=== PATIENT | male | born 1950 | race Caucasian/White ===

== ENCOUNTER 2018-10-20 20:29 | Inpatient (IN) | payer MEDICARE, BC ==
[2018-10-20] MEDS ORDERED: Thiamine 100 MG TAB ONE (21:14)
[2018-10-20 22:02] LABS: Hemoglobin 5.3 g/dL (14.0-18.0); Mean Corpuscular HGB CONC 34.5 g/dL (32.0-36.0); Mean Corpuscular Hemoglobin 29.5 pg (27.0-31.0); Mean Corpuscular Volume 85.5 fL (78.0-98.0); Mean Platelet Volume 7.6 fL (7.4-10.4); Platelet Count 610 thou/uL (130-400); RBC Distribution Width 26.6 % (11.5-14.5); Red Blood Cell (RBC) Count 1.78 mill/uL (4.70-6.10); White Blood Cell (WBC) Count 15.6 thou/uL (4.8-10.8)
[2018-10-20 22:08] LABS: Acetaminophen Less than 6.0 mcg/mL (10.0-30.0); Alcohol 19 mg/dL (Less than 10); Salicylate Less than 8.0 mg/dL (15.0-30.0)
[2018-10-20 22:09] LABS: ALT (SGPT) 8 U/L (8-55); AST (SGOT) 24 U/L (5-34); Albumin 3.6 g/dL (3.4-4.8); Alkaline Phosphatase 188 U/L (40-150); Anion Gap 19 mmol/L (10-20); BUN (Urea Nitrogen) 9 mg/dL (8.4-25.7); Bilirubin, Total 0.8 mg/dL (0.2-1.2); Calc. Creatinine Clearance 0 mL/min (70-130); Calcium 7.3 mg/dL (7.8-10.44); Carbon Dioxide 24 mmol/L (23-31); Chloride 91 mmol/L (98-107); Estimated GFR-MDRD Greater than 90; Globulin 3.1 g/dL (2.4-3.5); Glucose 105 mg/dL (80-115); Protein, Total 6.7 g/dL (5.8-8.1); Sodium 131 mmol/L (136-145)
[2018-10-20 22:16] LABS: #Eosinphils 0.1 thou/uL (0.0-0.7); #Lymphocytes 2.2 thou/uL (1.20-3.40); #Monocytes 0.9 thou/uL (0.11-0.59); #Neutrophils 12.4 thou/uL (1.40-6.50); %Eosinophils 0.4 % (0.0-10.0); %Lymphocytes 14.2 % (21.0-51.0); %Neutrophils 79.4 % (42.0-75.0); Anisocytosis MODERATE=16-30 cells (100X) (0-5/hpf); Hypochromia SLIGHT = 6-15 cells (100X) (0-5/hpf); MDiff Complete? YES; Microcytosis SLIGHT = 6-15 cells (100X) (0-5/hpf); Platelet Morphology Comment Appears Increased; Tear Drops SLIGHT = 2-5 cells (100X) (0-1/hpf)
[2018-10-20 22:21] LABS: Potassium 2.9 mmol/L (3.5-5.1)
[2018-10-20] MEDS ORDERED: Ondansetron ODT 4 MG TAB ONE (22:49)
[2018-10-20 22:55] LABS: Amphetamine Not Detected (NotDetected); Barbiturates Screen Not Detected (NotDetected); Benzodiazepine Screen Not Detected (NotDetected); Cocaine Metabolite Screen Not Detected (NotDetected); Medtox Control Line Valid? VALID (VALID); Medtox Reader # READER 4; Methadone Not Detected (NotDetected); Methamphetamine Not Detected (NotDetected); Opiate Screen Not Detected (NotDetected); Oxycodone Screen Not Detected (NotDetected); Phencyclidine (PCP) Not Detected (NotDetected); THC/Cannabinoid Screen Not Detected (NotDetected); Tricyclic Screen Not Detected (NotDetected)
[2018-10-20] MEDS ORDERED: Pot Chloride/Pot Bicarb/Cit Ac 25 mEq Effervescent Tablet ONE (22:55)
[2018-10-21] MEDS ORDERED: Lorazepam 2 MG/ML VIAL SLOW IVP SCH (01:47)
[2018-10-21 02:15] LABS: Iron 197 ug/dL (65-175); Iron Binding Capacity, Total 210 mcg/dL (261-462)
[2018-10-21] MEDS: Multivitamins, Adult 10 ML, Folic Acid 1 MG, Thiamine HCl 100 MG in Dextrose 5 %-0.45 %... IV SCH ×2 (02:28→16:06)
[2018-10-21] MEDS: Octreotide Acetate 1,250 MCG in Sodium Chloride 0.9% 250 ML 250 ML IVPB SCH (02:32)
--- NOTE | 2018-10-21 03:42 | HP ---
PRIMARY CARE PHYSICIAN: Dr. Salvador Germain. CHIEF COMPLAINT: "I am feeling short of breath, lightheaded and weak and I want to come off alcohol." HISTORY OF PRESENT ILLNESS: Mr. Carmona is a pleasant 68-year-old gentleman who has a history of alcohol abuse. He says he has "a long history of bad alcohol disease." He says that he tends to abstain from drinking and then goes back to heavy drinking off and on. He cannot really quantitate it, but says that he typically will drink vodka with 7 Up. He says a few weeks ago he started drinking heavily and then noticed that he started getting short of breath primarily with moving around his house. He started feeling lightheaded and weak and he wanted to stop drinking and notes that he has had trouble with withdrawal symptoms in the past. For this reason, he came to the ER for evaluation. In the ER, routine lab work showed that he was severely anemic with a hemoglobin of 5.3 and also hypokalemic and he is being admitted for that, as well as to be detoxed. He denies having any abdominal pain. He denies using any anti-inflammatory medicines such as Advil, Motrin or aspirin. He denies having any hematemesis. No dark stools, no melena that he is aware of and he denies any abdominal pain. He does admit to having some episodes of vomiting off and on and feeling nauseated and this happens about every 2 days. He does not know of having any problems with anemia in the past. He also denies any chest pain. REVIEW OF SYSTEMS: CONSTITUTIONAL: There has been no fevers or chills. No night sweats. No weight loss. HEENT: He denies any headache, but has had some dizziness and feeling lightheaded. No sore throat. No rhinorrhea. No neck pain. No adenopathy. PULMONARY: No hemoptysis. No cough. No wheezing. CARDIOVASCULAR: He denies any chest pain. He does admit to some dyspnea on exertion, but no PND, no orthopnea. He has noted some ankle swelling. GASTROINTESTINAL: As in the history of present illness. GENITOURINARY: No urinary frequency or hematuria. No hesitancy. MUSCULOSKELETAL: No muscle pains, weakness or joint pain. NEUROLOGIC: No focal weakness or numbness. No seizures. PSYCHIATRIC: No symptoms of anxiety or depression. SKIN AND INTEGUMENT: No skin changes. No rash. ENDOCRINE: No heat or cold intolerance. PAST MEDICAL HISTORY: Significant for he says low blood pressure. He says his blood pressure usually runs about 110 systolic. Long history of alcohol abuse. He says he has been to multiple programs and says he could teach the class himself. He admits to binge drinking off and on. PAST SURGICAL HISTORY: He has had cataract surgeries, lipoma removed, as well as kidney stone removal with lithotripsy. ALLERGIES: NO KNOWN DRUG ALLERGIES. SOCIAL HISTORY: He is , has 1 child. He would like to be a full code. He does not have a surrogate decision maker. He does not quantitate his alcohol use other than saying he drinks vodka and he has been a drinker for 40 years. FAMILY HISTORY: Significant for diabetes mellitus in his sister. CURRENT MEDICATIONS: Include: 1. Gabapentin 300 mg two 3 times a day, but he says he decreased it to one 3 times a day due to feeling dizzy and lightheaded. 2. Also the buspirone. He decreased his dose, but he is supposed to be taking 5 mg twice a day. PHYSICAL EXAMINATION: GENERAL: He is alert and oriented. He appears to be in no acute distress. He is well developed and well nourished. VITAL SIGNS: Blood pressure systolic is 88/52, heart rate is 106, respiratory rate of 18 and temperature is 98.8. HEENT: Pupils are equal, round and reactive to light. Extraocular muscles are intact. His sclerae are anicteric. Throat, there is no erythema, no exudates. NECK: No adenopathy, no bruits. LUNGS: Clear to auscultation. There is no wheezing, no rales, no rhonchi. CARDIOVASCULAR: He has normal S1 and S2. There is no S3 or S4. No murmurs or clicks, no rubs. ABDOMEN: Soft. It is nontender and nondistended. Positive for bowel sounds. There is no rebound, no guarding. No organomegaly. EXTREMITIES: No clubbing or cyanosis. He does have some ankle edema. No calf tenderness. He has palpable dorsalis pedis pulses bilaterally. NEUROLOGIC: Cranial nerves 2 through 12 are grossly intact. His muscle strength is 5/5 in both his upper and lower extremities. SKIN AND INTEGUMENT: No skin changes, no rash. LABORATORY DATA: White blood cell count 15.6, hemoglobin 5.3, hematocrit is 15.2 and platelet count is 610. Sodium 131, potassium 2.9, chloride is 91, BUN of 9, creatinine 0.75, glucose is 105, plasma alcohol level was 19. ASSESSMENT: This is a 68-year-old gentleman who presents to the ER feeling weak and dizzy. He was found to be severely anemic. He has a history of chronic alcohol abuse. He was also found to be hypokalemic as well. The anemia, the etiology is unclear. The concern, however, would be for ulcer disease or even varices given his heavy alcohol use. He will be admitted to telemetry. His blood pressure seems to be responding to fluids and he is currently receiving a transfusion. 1. For alcohol abuse, he will be placed on a banana bag, IV Ativan p.r.n. for potential withdrawal symptoms. He has been counseled briefly on alcohol abuse and will likely need some information on local programs at the time of discharge. 2. Severe anemia. We will check iron studies, as well as B12 and folic acid. Check his stool for occult blood, and given the high possibility for a gastrointestinal blood loss, we will consult Gastroenterology. 3. Hypotension. I suspect this is likely due to volume depletion. We will continue IV hydration as well as transfusion. 4. Hypokalemia. This is likely due to nutritional deficits. We will replace and also check a magnesium level, and if low, this will be replaced as well. Job ID: [id number]
[2018-10-21] MEDS ORDERED: Diazepam 5 MG TAB PO PRN (04:33)
[2018-10-21] MEDS ORDERED: Diazepam 5 MG TAB PO SCH (04:45)
[2018-10-21 06:05] LABS: Hemoglobin 7.2 g/dL (14.0-18.0); Mean Corpuscular HGB CONC 34.8 g/dL (32.0-36.0); Mean Corpuscular Hemoglobin 29.3 pg (27.0-31.0); Mean Corpuscular Volume 84.2 fL (78.0-98.0); Mean Platelet Volume 7.8 fL (7.4-10.4); Platelet Count 524 thou/uL (130-400); RBC Distribution Width 23.1 % (11.5-14.5); Red Blood Cell (RBC) Count 2.47 mill/uL (4.70-6.10); White Blood Cell (WBC) Count 15.3 thou/uL (4.8-10.8)
[2018-10-21 06:07] LABS: Anion Gap 17 mmol/L (10-20); BUN (Urea Nitrogen) 11 mg/dL (8.4-25.7); Calc. Creatinine Clearance 106 mL/min (70-130); Calcium 6.9 mg/dL (7.8-10.44); Carbon Dioxide 28 mmol/L (23-31); Chloride 92 mmol/L (98-107); Estimated GFR-MDRD Greater than 90; Glucose 136 mg/dL (80-115); Potassium 3.6 mmol/L (3.5-5.1); Sodium 133 mmol/L (136-145)
[2018-10-21 06:26] LABS: #Eosinphils 0.1 thou/uL (0.0-0.7); #Lymphocytes 2.1 thou/uL (1.20-3.40); #Monocytes 1.2 thou/uL (0.11-0.59); #Neutrophils 11.9 thou/uL (1.40-6.50); %Basophils 0.1 % (0.0-1.0); %Eosinophils 0.7 % (0.0-10.0); %Lymphocytes 13.7 % (21.0-51.0); %Monocytes 7.5 % (0.0-10.0); Anisocytosis SLIGHT = 6-15 cells (100X) (0-5/hpf); MDiff Complete? YES; Platelet Morphology Comment Appears Increased; Tear Drops SLIGHT = 2-5 cells (100X) (0-1/hpf)
[2018-10-21 06:37] LABS: Folate (Folic Acid) 7.4 ng/mL (7.0-31.4)
[2018-10-21] MEDS ORDERED: Prevnar 13-Val Conj/PF 0.5 ML SYRINGE IM ONE (09:00)
[2018-10-21] MEDS: Lorazepam 2 MG/ML VIAL SLOW IVP PRN ×2 (10:01→17:24)
[2018-10-21] MEDS: Pantoprazole 40 MG VIAL IVP SCH ×2 (10:08→19:48)
[2018-10-21] MEDS ORDERED: GoLYTELY 4,000 ml Bottle PO SCH ×2 (11:00→18:00)
--- NOTE | 2018-10-21 12:49 | CON ---
DATE OF CONSULTATION: 10/21/2018 REASON FOR CONSULTATION: Severe anemia. CONSULTING PROVIDER: Garfield Rivera MD HISTORY OF PRESENT ILLNESS: The patient is a 68-year-old male with past medical history of alcohol abuse, presenting with complaints of shortness of breath and weakness. He states that he was in his usual state of health until approximately 3 to 4 weeks ago when he began to have progressive worsening of shortness of breath, both at rest and exertion, generalized weakness and lightheadedness again progressively worse over the same time. During this time period, he also mentioned that he had sporadic episodes of vomiting with no preceding nausea that would occur every 2 to 3 days, but would only vomit a small amount of mucoid material with this increased nausea, vomiting, and the weakness that prompted him to seek healthcare assistance within the [facility] ER and when he got to the ER, he was noted to have a significantly decreased H and H. Upon further questioning on the patient, he has been having approximately 1 solid bowel movement every other day with no difficulty with defecation and currently denies any fevers, chills, hematemesis, melena, hematochezia, dysphagia, odynophagia, diarrhea, constipation, rashes, lower extremity edema, ascites, encephalopathy, jaundice, or weight loss. He further denies any evidence of abdominal pain. REVIEW OF SYSTEMS: A 10-category review of systems was obtained with all responses negative except for the pertinent positives as listed in HPI. PAST MEDICAL HISTORY: As per HPI. PAST SURGICAL HISTORY: Cataract surgery, lipoma resection, nephrolithiasis, status post lithotripsy. FAMILY HISTORY: Denies any family history of GI malignancies. SOCIAL HISTORY: Denies any tobacco or illicit drug use. However, he has been drinking approximately one bottle of vodka every 2 to 3 days and has been doing so for roughly the last 15 to 20 years. OUTPATIENT MEDICATIONS: 1. Gabapentin 300 mg t.i.d. 2. Buspirone 5 mg b.i.d. ALLERGIES: NO KNOWN DRUG ALLERGIES. PHYSICAL EXAMINATION: VITAL SIGNS: Temperature 98.2, pulse 86, blood pressure 89/59, respiratory rate 22, and saturating 99% on room air. GENERAL: The patient is lying in bed, in no acute distress. Alert and oriented x4. HEENT: Normocephalic, atraumatic. NECK: Supple. No JVD or scleral icterus noted. CARDIOVASCULAR: Regular rate and rhythm with no discernible murmurs, gallops, or rubs. RESPIRATORY: Clear to auscultation bilaterally with no discernible wheezes or rales. ABDOMEN: Normoactive bowel sounds. Soft, nontender, and nondistended. EXTREMITIES: No cyanosis, clubbing, or edema. LABORATORY DATA: CBC with a white blood cell count of 15.3, hemoglobin 7.2, hematocrit 20.8, and platelets 524. Chemistry with a sodium of 133, potassium of 3.6, chloride 92, CO2 of 28, BUN 11, creatinine 0.71, and glucose 136. Iron 197, TIBC 210. AST 24, ALT 8, alkaline phosphatase 188, and total bilirubin 0.8. B12 of 386. Folate 7.4. IMAGING DATA: No current GI imaging is available for review. ASSESSMENT AND PLAN: The patient is a 68-year-old male with past medical history of lower blood pressure as well as chronic alcohol abuse, presenting with symptomatic anemia. Symptomatic anemia: The patient is presenting with a 3-to 4-week history of progressively worsening shortness of breath, both at rest and exertion, weakness and lightheadedness that per review of his labs seems to be more consistent with symptomatic anemia given his significantly low H and H on admission. At this time, he does not have any overt evidence of bleeding, GI or otherwise. Iron indices obtained showed an elevated iron level, but low TIBC, which could be indicative of anemia of chronic disease versus hemochromatosis. Current differential for his anemia could include occult gastrointestinal bleeding, esophagitis, gastritis, peptic ulcer disease, arteriovenous malformation, Dieulafoy lesion, bone marrow dysfunction, malnutrition given chronic alcohol abuse and/or gastrointestinal neoplasm. The patient states that his last colonoscopy was approximately 5 years ago with normal findings. He also has had an esophagogastroduodenoscopy in the past, but could not recall when also with normal findings. RECOMMENDATIONS: 1. We would continue to trend his H and H and transfuse as necessary to maintain an H and H of 09/08. 2. Continue to monitor clinically for signs of active GI bleeding. 3. We will continue with PPI b.i.d. in addition to octreotide drip given the possibility of cirrhosis of the liver with esophageal varices formation (however, his platelet count and liver function are currently normal making this less likely). 4. We would place the patient on a clear liquid diet today with GoLYTELY prep tonight in anticipation of both EGD and colonoscopy tomorrow. We will continue to follow. Please call with any questions. Job ID: [id number]
--- NOTE | 2018-10-21 13:38 | PDOC.HOSPP ---
- Subjective Encounter Date: 10/21/18 Subjective: feeling better after the transfusion, no other specific complaints. - Objective Vital Signs & Weight: Vital Signs (12 hours) Temp Pulse Resp BP Pulse Ox 10/21/18 11:09 98.2 F 10/21/18 08:00 99 10/21/18 07:38 98.8 F 10/21/18 04:00 99.0 F 93 16 101/45 L 96 10/21/18 02:30 99.7 F H 95 20 97/56 L 97 10/21/18 01:50 99.1 F 100 17 93/57 L 97 Weight Admit Weight 166 lb 11.2 oz Weight 166 lb 11.2 oz Most Recent Monitor Data Heart Rate from ECG 70 NIBP 102/51 NIBP BP-Mean 68 Respiration from ECG 15 SpO2 100 I&O: 10/20/18 10/21/18 10/22/18 06:59 06:59 06:59 Intake Total 640 Output Total 410 Balance 230 Result Diagrams: 10/21/18 05:23 10/21/18 05:23 Hospitalist ROS - Medication Medications: Active Medications Generic Name Dose Route Start Last Admin Trade Name Freq PRN Reason Stop Dose Admin Multivitamins 10 ml/ Folic 1,011.2 mls @ 75 mls/hr 10/21/18 01:47 10/21/18 02 :28 Acid 1 mg/ Thiamine HCl 100 mg IV 1,011.2 mls / Dextrose/Sodium Chloride Q24HR DEVANG Administration Octreotide Acetate 1,250 mcg/ 251.25 mls @ 10.05 mls/hr 10/21/18 01:47 02:32 Sodium Chloride IVPB 251.25 mls INF DEVANG Administration 50 MCG/HR Lorazepam 1 mg 10/21/18 01:47 10/21/18 10:01 Ativan SLOW IVP 1 mg Q4H PRN Administration Anxiety/Agitation Pantoprazole Sodium 40 mg 10/21/18 09:00 10/21/18 10:08 Protonix IVP 40 mg Q12HR DEVANG Administration - Exam General Appearance: NAD, awake alert Eye: PERRL, anicteric sclera ENT: normocephalic atraumatic, no oropharyngeal lesions, moist mucosa Neck: supple, symmetric, no JVD, no thyromegaly, no lymphadenopathy, no carotid bruit Heart: RRR, no murmur, no gallops, no rubs, normal peripheral pulses Respiratory: CTAB, no wheezes, no rales, no ronchi, normal chest expansion, no tachypnea, normal percussion Gastrointestinal: soft, non-tender, non-distended, normal bowel sounds, no palpable masses, no hepatomegaly, no splenomegaly, no bruit Extremities: no cyanosis, no clubbing, no edema Skin: normal turgor, no lesions, no rashes Musculoskeletal: normal tone, normal strength, no muscle wasting Hosp A/P (1) Anemia Code(s): D64.9 - ANEMIA, UNSPECIFIED Status: Acute (2) Alcohol abuse Code(s): F10.10 - ALCOHOL ABUSE, UNCOMPLICATED Status: Chronic - Plan patient presented with severe weakness and sob secondary to severe anemia, the cause remains unclear, possibly related to his alcoholism, he is on PPI and octreatide awaiting EGD and colonoscopy. continue SCDS/electrolyte replacement/and watching for withdrawals symptoms.
[2018-10-21] MEDS ORDERED: Potassium Chloride 20 MEQ TAB PO SCH ×2 (14:00→19:30)
[2018-10-21 18:47] LABS: Anion Gap 15 mmol/L (10-20); BUN (Urea Nitrogen) 9 mg/dL (8.4-25.7); Calc. Creatinine Clearance 105 mL/min (70-130); Calcium 6.8 mg/dL (7.8-10.44); Carbon Dioxide 27 mmol/L (23-31); Chloride 94 mmol/L (98-107); Estimated GFR-MDRD Greater than 90; Glucose 181 mg/dL (80-115); Magnesium 1.4 mg/dL (1.6-2.6); Potassium 3.6 mmol/L (3.5-5.1); Sodium 132 mmol/L (136-145)
[2018-10-21] MEDS ORDERED: Magnesium 2 GM/50 ML 2 GM in Premix Bag 1 BAG IVPB SCH (19:30)
[2018-10-21 23:32] LABS: Hemoglobin 8.3 g/dL (14.0-18.0)
[2018-10-22] MEDS: Octreotide Acetate 1,250 MCG in Sodium Chloride 0.9% 250 ML 250 ML IVPB SCH (01:56)
[2018-10-22] MEDS: Lorazepam 2 MG/ML VIAL SLOW IVP PRN ×4 (02:03→21:51)
[2018-10-22] MEDS ORDERED: GoLYTELY 4,000 ml Bottle PO SCH (03:00)
[2018-10-22] MEDS ORDERED: Diazepam 5 MG TAB PO PRN (04:00)
[2018-10-22 04:46] LABS: #Eosinphils 0.1 thou/uL (0.0-0.7); #Lymphocytes 2.1 thou/uL (1.20-3.40); #Monocytes 0.8 thou/uL (0.11-0.59); #Neutrophils 11.6 thou/uL (1.40-6.50); %Basophils 0.1 % (0.0-1.0); %Eosinophils 0.5 % (0.0-10.0); %Lymphocytes 14.5 % (21.0-51.0); %Monocytes 5.6 % (0.0-10.0); %Neutrophils 79.3 % (42.0-75.0); Hemoglobin 8.1 g/dL (14.0-18.0); Mean Corpuscular Hemoglobin 29.6 pg (27.0-31.0); Mean Corpuscular Volume 87.2 fL (78.0-98.0); Mean Platelet Volume 7.7 fL (7.4-10.4); Platelet Count 486 thou/uL (130-400); RBC Distribution Width 21.9 % (11.5-14.5); Red Blood Cell (RBC) Count 2.73 mill/uL (4.70-6.10); White Blood Cell (WBC) Count 14.7 thou/uL (4.8-10.8)
[2018-10-22 05:04] LABS: ALT (SGPT) 7 U/L (8-55); AST (SGOT) 21 U/L (5-34); Alkaline Phosphatase 156 U/L (40-150); Anion Gap 13 mmol/L (10-20); BUN (Urea Nitrogen) 5 mg/dL (8.4-25.7); Calc. Creatinine Clearance 111 mL/min (70-130); Calcium 6.9 mg/dL (7.8-10.44); Carbon Dioxide 25 mmol/L (23-31); Chloride 99 mmol/L (98-107); Estimated GFR-MDRD Greater than 90; Globulin 2.6 g/dL (2.4-3.5); Glucose 175 mg/dL (80-115); Magnesium 1.8 mg/dL (1.6-2.6); Potassium 4.1 mmol/L (3.5-5.1); Protein, Total 5.6 g/dL (5.8-8.1); Sodium 133 mmol/L (136-145)
[2018-10-22] MEDS: Magnesium Oxide 400 MG TAB PO SCH (09:48)
[2018-10-22] MEDS: Pantoprazole 40 MG VIAL IVP SCH ×2 (09:48→20:55)
--- NOTE | 2018-10-22 15:06 | PDOC.HOSPP ---
- Subjective Encounter Date: 10/22/18 Subjective: feels well, he has no complaints. - Objective Vital Signs & Weight: Vital Signs (12 hours) Temp Pulse Ox 10/22/18 08:00 97.6 F 99 10/22/18 03:55 98.9 F Weight Admit Weight 166 lb 11.2 oz Weight 171 lb 6 oz Most Recent Monitor Data Heart Rate from ECG 74 NIBP 105/81 NIBP BP-Mean 89 Respiration from ECG 18 SpO2 100 I&O: 10/21/18 10/22/18 10/23/18 06:59 06:59 06:59 Intake Total 640 7146 Output Total 410 1185 550 Balance 230 4621 -550 Result Diagrams: 10/22/18 04:33 10/22/18 04:33 Hospitalist ROS - Medication Medications: Active Medications Generic Name Dose Route Start Last Admin Trade Name Freq PRN Reason Stop Dose Admin Multivitamins 10 ml/ Folic 1,011.2 mls @ 75 mls/hr 10/21/18 01:47 10/21/18 16 :06 Acid 1 mg/ Thiamine HCl 100 mg IV 1,011.2 mls / Dextrose/Sodium Chloride Q24HR DEVANG Administration Octreotide Acetate 1,250 mcg/ 251.25 mls @ 10.05 mls/hr 10/21/18 01:47 01:56 Sodium Chloride IVPB 251.25 mls INF DEVANG Administration 50 MCG/HR Lorazepam 1 mg 10/21/18 01:47 10/22/18 07:02 Ativan SLOW IVP 1 mg Q4H PRN Administration Anxiety/Agitation Magnesium Oxide 400 mg 10/22/18 09:00 10/22/18 09:48 Magnesium Oxide PO 400 mg DAILY DEVANG Administration Pantoprazole Sodium 40 mg 10/21/18 09:00 10/22/18 09:48 Protonix IVP 40 mg Q12HR DEVANG Administration - Exam General Appearance: NAD, awake alert, ill appearing Eye: PERRL, anicteric sclera, scleral icterus ENT: normocephalic atraumatic, no oropharyngeal lesions, moist mucosa, dry oral mucosa Neck: supple, symmetric, no JVD, no thyromegaly, no lymphadenopathy, no carotid bruit, JVD Heart: RRR, no murmur, no gallops, no rubs, normal peripheral pulses, irregular , diminshed peripheral pulses, murmur present, II/IV, III/IV Gastrointestinal: soft, non-tender, non-distended, normal bowel sounds, no palpable masses, no hepatomegaly, no splenomegaly, no bruit, no guarding, no rigidity, tender to palpation, distended, diminished bowl sounds, voluntary guarding Extremities: no cyanosis, no clubbing, no edema, 1+ LE edema, 2+ LE edema, clubbing Skin: normal turgor, no lesions, no rashes, tenting Neurological: CN's grossly intact, normal sensation to touch, no weakness, no focal deficits, no new deficit, facial droop, hemiplegia, speech deficit, vision deficit Hosp A/P (1) Anemia Code(s): D64.9 - ANEMIA, UNSPECIFIED Status: Acute (2) Alcohol abuse Code(s): F10.10 - ALCOHOL ABUSE, UNCOMPLICATED Status: Chronic - Plan patient presented with severe weakness and sob secondary to severe anemia, the cause remains unclear, possibly related to his alcoholism, did undergo EGD and colonoscopy awaiting for results, will proceed as per GI input. continue SCDS/electrolyte replacement/and watching for withdrawals symptoms. replace magnesium
[2018-10-22] MEDS ORDERED: Magnesium 2 GM/50 ML 2 GM in Premix Bag 1 BAG IVPB SCH (15:15)
--- NOTE | 2018-10-22 16:57 | OP ---
DATE OF PROCEDURE: 10/22/2018 PROCEDURES PERFORMED: Esophagogastroduodenoscopy with biopsy, colonoscopy (diagnostic). INDICATION FOR PROCEDURE: Symptomatic anemia with unknown etiology. DESCRIPTION OF PROCEDURE: After the risks and benefits of the procedures were explained to the patient including risks of bleeding, infection, perforation, reactions to anesthesia, aspiration and/or pain, informed consent was obtained. The patient was then taken to the endoscopy suite, where deep sedation was administered via propofol and anesthesia support. Once adequate sedation was achieved, the standard gastroscope was introduced into the mouth with intubation of the esophagus, stomach, and the proximal small intestines with the findings listed below. The patient tolerated this portion of the procedure well with no immediate perioperative complications. Upon conclusion of this portion of the procedure, all equipment was removed from the patient and the bed was rotated 90 degrees in anticipation of the colonoscopy. After a digital rectal examination was performed the standard colonoscope was introduced into the rectum and advanced to the terminal ileum without difficulty. The quality of the prep was good to excellent with adequate visualization achieved on slow withdrawal to the colon visualization of the colonic mucosa was performed with the findings listed below. The patient tolerated the procedure well with no immediate perioperative complications. Upon conclusion of the procedure, the patient was transferred to PACU in satisfactory condition. EGD FINDINGS: Esophagus: Normal-appearing mucosa was seen in the proximal, mid, and distal esophagus. There was no evidence of erosions, ulcerations, mass, lesions, or active/recent bleeding. Stomach: Normal-appearing mucosa was seen in the gastric cardia, fundus, body, greater curvature, antrum, and incisura. There was no evidence of erosions, ulcerations, mass, lesions, or active/recent bleeding. Duodenum: Normal-appearing mucosa was seen in both the duodenal bulb and second portion of the duodenum. There was no evidence of erosions, ulcerations, mass, lesions, or active/recent bleeding. Random duodenal biopsies were taken for evaluation of possible celiac sprue. IMPRESSION: 1. Normal upper endoscopy. 2. No etiology for the patient's anemia seen during this portion of the exam. COLONOSCOPY FINDINGS: Digital rectal exam: Normal external examination. Colon findings: Normal-appearing mucosa was seen within the terminal ileum as well as at the ileocecal valve and appendiceal orifice. Normal-appearing mucosa was then seen in the cecum, ascending colon, transverse colon and descending colons. Scattered medium-sized diverticula were seen in the sigmoid colon consistent with mild to moderate sigmoid diverticulosis. Normal-appearing mucosa was then seen within the rectum with small internal hemorrhoids seen on rectal retroflexion. IMPRESSION: 1. [id number] sigmoid diverticulosis. 2. Otherwise normal colonoscopy. 3. No etiology for the patient's anemia was seen during this examination. RECOMMENDATIONS: 1. Would continue to trend his H and H and transfuse as necessary to maintain an H and H of 7/21. 2. Continue to monitor clinically for signs of active GI bleeding. 3. If the patient has significant decrease in his H and H during this hospitalization, would then consider a tagged red cell scan for further localization of the bleeding. 4. Can discontinue the octreotide drip given the lack of esophageal varices on the upper endoscopy. 5. We would consider a non-GI source of the patient's symptomatic anemia including nutritional deficiencies given his alcoholism. We will sign off at this time. Please call with any additional questions. Job ID: [id number]
[2018-10-22] MEDS ORDERED: PROPOFOL 200 MG/20 ML VIAL ONE (17:39)
[2018-10-23] MEDS ORDERED: Multivitamins, Adult 10 ML, Folic Acid 1 MG, Thiamine HCl 100 MG in Dextrose 5 %-0.45 %... IV SCH (06:00)
[2018-10-23 06:04] LABS: #Eosinphils 0.2 thou/uL (0.0-0.7); #Lymphocytes 2.3 thou/uL (1.20-3.40); #Monocytes 0.8 thou/uL (0.11-0.59); #Neutrophils 8.1 thou/uL (1.40-6.50); %Basophils 0.1 % (0.0-1.0); %Eosinophils 2.1 % (0.0-10.0); %Lymphocytes 20.3 % (21.0-51.0); %Monocytes 6.6 % (0.0-10.0); %Neutrophils 70.9 % (42.0-75.0); Hemoglobin 7.8 g/dL (14.0-18.0); Mean Corpuscular HGB CONC 32.4 g/dL (32.0-36.0); Mean Corpuscular Hemoglobin 28.5 pg (27.0-31.0); Mean Platelet Volume 7.7 fL (7.4-10.4); Platelet Count 523 thou/uL (130-400); RBC Distribution Width 21.9 % (11.5-14.5); Red Blood Cell (RBC) Count 2.71 mill/uL (4.70-6.10); White Blood Cell (WBC) Count 11.5 thou/uL (4.8-10.8)
[2018-10-23 06:29] LABS: Anion Gap 12 mmol/L (10-20); BUN (Urea Nitrogen) Less than 4 mg/dL (8.4-25.7); Calc. Creatinine Clearance 118 mL/min (70-130); Calcium 7.4 mg/dL (7.8-10.44); Carbon Dioxide 24 mmol/L (23-31); Chloride 104 mmol/L (98-107); Estimated GFR-MDRD Greater than 90; Glucose 137 mg/dL (80-115); Magnesium 2.4 mg/dL (1.6-2.6); Sodium 136 mmol/L (136-145)
[2018-10-23] MEDS: Pantoprazole 40 MG VIAL IVP SCH ×2 (08:32→21:43)
[2018-10-23] MEDS: Magnesium Oxide 400 MG TAB PO SCH (08:32)
[2018-10-23 12:25] VITALS: BMI 25.2
[2018-10-23] MEDS: Lorazepam 2 MG/ML VIAL SLOW IVP PRN (15:04)
--- NOTE | 2018-10-23 17:45 | PDOC.HOSPP ---
- Subjective Encounter Date: 10/23/18 Subjective: feels better no complaints - Objective Vital Signs & Weight: Vital Signs (12 hours) Temp Pulse Ox 10/23/18 15:46 98.5 F 10/23/18 11:20 98.5 F 10/23/18 07:48 98 10/23/18 07:24 98.1 F Weight Admit Weight 166 lb 11.2 oz Weight 171 lb 6 oz Most Recent Monitor Data Heart Rate from ECG 85 NIBP 115/73 NIBP BP-Mean 87 Respiration from ECG 27 SpO2 97 I&O: 10/22/18 10/23/18 10/24/18 06:59 06:59 06:59 Intake Total 7146 1710 Output Total 3465 1525 Balance 4621 185 Result Diagrams: 10/23/18 05:53 10/23/18 05:53 Hospitalist ROS - Medication Medications: Active Medications Generic Name Dose Route Start Last Admin Trade Name Freq PRN Reason Stop Dose Admin Lorazepam 1 mg 10/21/18 01:47 10/23/18 15:04 Ativan SLOW IVP 1 mg Q4H PRN Administration Anxiety/Agitation Magnesium Oxide 400 mg 10/22/18 09:00 10/23/18 08:32 Magnesium Oxide PO 400 mg DAILY DEVANG Administration Pantoprazole Sodium 40 mg 10/21/18 09:00 10/23/18 08:32 Protonix IVP 40 mg Q12HR DEVANG Administration - Exam General Appearance: NAD, awake alert Eye: PERRL, anicteric sclera ENT: normocephalic atraumatic, no oropharyngeal lesions, moist mucosa Neck: supple, symmetric, no JVD, no thyromegaly, no lymphadenopathy, no carotid bruit Heart: RRR, no murmur, no gallops, no rubs, normal peripheral pulses Respiratory: CTAB, no wheezes, no rales, no ronchi, normal chest expansion, no tachypnea, normal percussion Gastrointestinal: soft, non-tender, non-distended, normal bowel sounds, no palpable masses, no hepatomegaly, no splenomegaly, no bruit Extremities: no cyanosis, no clubbing, no edema Neurological: CN's grossly intact, normal sensation to touch, no weakness, no focal deficits, no new deficit Hosp A/P (1) Anemia Code(s): D64.9 - ANEMIA, UNSPECIFIED Status: Acute (2) Alcohol abuse Code(s): F10.10 - ALCOHOL ABUSE, UNCOMPLICATED Status: Chronic - Plan patient presented with severe weakness and sob secondary to severe anemia, the cause remains unclear, possibly related to his alcoholism, did undergo EGD and colonoscopy the latter showed small internal hemorrhoids and scatetred diverticulae. continue SCDS/electrolyte replacement/and watching for withdrawals symptoms. switch thiamine and folic acid to po transfer to [facility] consult HEMATOLOGY. most probably discharge in am.
[2018-10-24] MEDS: Lorazepam 2 MG/ML VIAL SLOW IVP PRN (00:19)
[2018-10-24 06:27] LABS: Anion Gap 11 mmol/L (10-20); BUN (Urea Nitrogen) 4 mg/dL (8.4-25.7); Calc. Creatinine Clearance 123 mL/min (70-130); Calcium 7.8 mg/dL (7.8-10.44); Carbon Dioxide 22 mmol/L (23-31); Chloride 104 mmol/L (98-107); Estimated GFR-MDRD Greater than 90; Glucose 107 mg/dL (80-115); Potassium 4.2 mmol/L (3.5-5.1); Sodium 133 mmol/L (136-145)
[2018-10-24 06:59] LABS: Folate (Folic Acid) 7.8 ng/mL (7.0-31.4)
[2018-10-24 07:26] LABS: #Eosinphils 0.2 thou/uL (0.0-0.7); #Lymphocytes 2.1 thou/uL (1.20-3.40); #Monocytes 0.7 thou/uL (0.11-0.59); #Neutrophils 7.9 thou/uL (1.40-6.50); %Basophils 0.2 % (0.0-1.0); %Eosinophils 1.7 % (0.0-10.0); %Lymphocytes 19.1 % (21.0-51.0); %Monocytes 6.3 % (0.0-10.0); %Neutrophils 72.7 % (42.0-75.0); Mean Corpuscular HGB CONC 33.5 g/dL (32.0-36.0); Mean Corpuscular Volume 89.6 fL (78.0-98.0); Platelet Count 492 thou/uL (130-400); RBC Distribution Width 22.5 % (11.5-14.5); Red Blood Cell (RBC) Count 2.65 mill/uL (4.70-6.10); White Blood Cell (WBC) Count 10.9 thou/uL (4.8-10.8)
[2018-10-24 07:55] LABS: Anisocytosis MODERATE=16-30 cells (100X) (0-5/hpf); MDiff Complete? YES; Platelet Morphology Comment Appears Increased; Polychromasia MODERATE = 3-4 cells (100X) (0-2/hpf)
[2018-10-24 08:07] LABS: Iron 13 ug/dL (65-175); Iron Binding Capacity, Total 166 mcg/dL (261-462)
[2018-10-24] MEDS ORDERED: Folic Acid 1 MG TAB PO SCH (09:00)
[2018-10-24] MEDS ORDERED: Multivit, Therapeutic 1 TAB PO SCH (09:00)
[2018-10-24] MEDS ORDERED: Thiamine 100 MG TAB PO SCH (09:00)
[2018-10-24] MEDS: Magnesium Oxide 400 MG TAB PO SCH (09:35)
[2018-10-24] MEDS: Pantoprazole 40 MG VIAL IVP SCH (09:36)
[2018-10-24] MEDS ORDERED: Iron Sucrose Complex 200 MG in Sodium Chloride 0.9% 250 ML 250 ML IVPB SCH (10:15)
[2018-10-24 11:26] LABS: Reticulocyte Count 4.5 % (0.5-1.5)
--- NOTE | 2018-10-24 11:53 | CON ---
DATE OF CONSULTATION: REASON FOR CONSULT: Anemia. HISTORY OF PRESENT ILLNESS: Mr. Carmona is a 68-year-old gentleman, who lives at [facility] in independent living. He has a longstanding history of alcohol abuse. He states over the last several weeks, he has been drinking more and has been having shortness of breath, fatigue, and dizziness. He states he drinks a 5th of vodka and 7-Up . When he is drinking heavily, he admits that he eats very little. He states he has lost 30 pounds in the past year, but none over the past month. He presented to the emergency room and he had a hemoglobin of 5.3. Denies any bleeding. He was transfused 3 units of packed RBCs. His hemoglobin is now 8. GI was consulted and performed endoscopies with no clear source of bleeding. On admission, he had an elevated white count of 15.6 and a platelet count of 610,000. He denies any fever, chills, or night sweats. No lumps are noted in his neck, arms, or groin. As the hemoglobin has improved, both his platelet count and white count have improved as well. His iron studies showed a low serum iron of 13 and iron saturation of 8 consistent with chronic disease. His B12 and folate were normal. His serum alcohol level on admission was 19. He states he smokes one cigarette daily. PAST MEDICAL HISTORY: Alcohol use. PAST SURGICAL HISTORY: 1. Cataract surgeries. 2. Lipoma removal. 3. Lithotripsy. ALLERGIES: NO KNOWN DRUG ALLERGIES. HOME MEDICATIONS: 1. Gabapentin. 2. Buspirone. FAMILY HISTORY: No history of hematological disorders or malignancy. SOCIAL HISTORY: , one child. Lives in independent living at [facility]. Retired food or baggage handling rampman. Drinks vodka, states less than a 5th a day . REVIEW OF SYSTEMS: A 10-point review of systems is negative except for noted in HPI. PHYSICAL EXAMINATION: VITAL SIGNS: Temperature is 97.6, pulse is 96, respiratory rate 18, and BP is 117/77. He is 92% on room air. GENERAL: This is a disheveled male, in no acute distress. HEENT: Normocephalic and atraumatic. Pupils are equal and reactive to light. NECK: Supple. CV: Regular rate and rhythm. LUNGS: Clear. ABDOMEN: Mildly distended, but nontender. Bowel sounds are positive. There is no organomegaly. EXTREMITIES: No clubbing, cyanosis, or edema. SKIN: No rash. HEMATOLOGIC: No petechiae or purpura. LYMPH: There is no palpable lymphadenopathy. NEUROLOGIC: Nonfocal. PSYCH: He is alert, oriented, and appropriate. PERTINENT LABS AND X-RAYS: Current WBC is 10.9, hemoglobin 8.0, hematocrit 23.8, platelet count is 492,000. He has 72% neutrophils, 19% lymphocytes. Sodium 133, potassium 4.2, chloride 102, CO2 is 22, BUN is 4, creatinine 0.63, calcium 7.8, magnesium 2.0. Iron 13, TIBC is 166, iron saturation is 8. Total bilirubin is 1.0, AST is 21, ALT 7, and alkaline phosphatase is 156. Serum total protein is 5.6, albumin 3.0, globulin 2.6, B12 is 556, folate is 7.8. TSH is normal. ASSESSMENT: 1. Severe anemia with no evidence of bleeding. 2. History of alcohol use. DISCUSSION: The patient's anemia is likely from malnutrition and liver disease. He has been transfused 3 units with good response. He does have low iron saturations, so I will give him one dose of IV iron to improve his iron stores. Check retic count. I think that his leukocytosis and thrombocytosis are reactive to his anemia. I do think he should be on iron pill daily when he leaves this facility. He will follow up with us in a couple of weeks to recheck his blood count. This was all discussed in detail with the patient, who is in agreement. Thank you for the consult. Job ID: [id number]
[2018-10-24 16:19] VITALS: BP 105/67; TEMP 98.7
--- NOTE | 2018-10-25 13:12 | DIS ---
DATE OF ADMISSION: 10/20/2018 DATE OF DISCHARGE: 10/24/2018 HOSPITAL COURSE: This is a 68-year-old male patient, who presented to emergency room and admitted to our hospital on 10/20/2018. At that time, he was feeling short of breath and lightheaded. He is known to be an alcoholic. His blood work did reveal severe anemia. His hemoglobin was 5.3. There was a concern that he was having a GI bleed from varices versus peptic ulcer disease, and for that reason, he was admitted to the [facility] and started on IV octreotide and IV Protonix. He was kept n.p.o. He was transfused with blood. His blood pressure was on the low side, but he was never unstable. He was always comfortable. He did require some Ativan for anxiety, but otherwise did not go into major withdrawals. He was seen by Gastroenterology. He did undergo an EGD and a colonoscopy. His colonoscopy did show [id number] sigmoid diverticulosis, but no etiology of the patient's anemia. It was thought that he needs to be evaluated from the hematological standpoint, and indeed, we asked Hematology to see him. Their impression was the patient has iron deficiency anemia, and he did receive a dose of IV iron. He will be discharged on p.o. iron to follow up with Hematology as an outpatient. PHYSICAL EXAMINATION: GENERAL: Today, the patient feels very well, ready to go home. VITAL SIGNS: His blood pressure is 117/77, heart rate of 94, temperature is 98.5, saturating 100% on room air. HEENT: Head is nontraumatic and normocephalic. Pupils are equally reactive. Extraocular movements are intact. Nonicteric sclerae. Well injected conjunctivae. Oral mucosa is normal. Nasal mucosa is normal. NECK: Supple. No adenopathy. No murmurs. Thyroid is not palpable. Trachea is midline. No supraclavicular lymphadenopathy. HEART: S1 and S2. Regular. No murmur. No gallops. No frictional rubs. No displacement of PMI. LUNGS: Clear to auscultation bilaterally. No wheezes, rhonchi, or crackles. ABDOMEN: Bowel sounds are positive. Nontender abdomen. No hepatosplenomegaly. EXTREMITIES: No lower extremity edema. No cyanosis. NEUROLOGIC: Cranial nerves 2 through 12 within normal limits. Normal motor function. Normal sensory function. Normal reflexes. LABORATORY DATA: Blood work shows a sodium of 133, potassium 4.2, bicarb 22, creatinine 0.63. Iron 13, TIBC 166, percent saturation 8. Ferritin 916.77. Vitamin B12 level 556. Folic acid level 7.80. Hemoglobin 8, WBC of 10.9, platelets of 492. His hemoglobin has been around 8 for the last 4 days. DISCHARGE INSTRUCTIONS: The patient will be discharged on thiamine, iron, multivitamin, and also his psychiatric medications. He is advised on alcohol cessation. He will follow with Hematology as on outpatient. TIME SPENT: More than 30 minutes was spent to discharge the patient. Job ID: [id number]
== END 2018-10-24 16:29 | disposition home or self-care (01) | DRG 812 ==
LOC: ERS 20:29 → ERHOLD 23:47 → IMCU/EMU 10-21 01:38 → T4-A 10-23 22:40
PROVIDERS: ADMIT Internal Medicine; ATTEND Internal Medicine
PROC: 30233N1 Transfusion of Nonautologous Red Blood Cells into Peripheral Vein, Percutaneous Approach (ICD-10-PCS; principal; 2018-10-21)
PROC: 0DB98ZX Excision of Duodenum, Via Natural or Artificial Opening Endoscopic, Diagnostic (ICD-10-PCS; 2018-10-22)
PROC: 0DJD8ZZ Inspection of Lower Intestinal Tract, Via Natural or Artificial Opening Endoscopic (ICD-10-PCS; 2018-10-22)
DX: D50.9 Iron deficiency anemia, unspecified (principal); F41.9 Anxiety disorder, unspecified; F32.9 Major depressive disorder, single episode, unspecified; K57.90 Diverticulosis of intestine, part unspecified, without perforation or abscess without bleeding; E87.6 Hypokalemia; F10.20 Alcohol dependence, uncomplicated; I95.9 Hypotension, unspecified; F17.210 Nicotine dependence, cigarettes, uncomplicated; Z98.42 Cataract extraction status, left eye; Z98.41 Cataract extraction status, right eye
CPT/HCPCS: 36415; 36430; 80048; 80053; 80306; 80307; 82274; 82607; 82728; 82746; 83540; 83550; 83735; 84443; 85025; 85046; 86850; 86900; 86901; 88305; 93005; C9113; J1756; J2060; J2354; J2704; J3411; J3475; J3490; J7042; J7050; P9016; Q0162

== ENCOUNTER 2018-11-11 13:05 | Emergency (ER) | payer MEDICARE, BC ==
[~2018-11-11 13:05] MED LIST: ISOVUE-370 76%-LOCM 1 ML ONE
[2018-11-11 14:21] LABS: #Lymphocytes 2.5 thou/uL (1.20-3.40); #Monocytes 0.5 thou/uL (0.11-0.59); #Neutrophils 3.7 thou/uL (1.40-6.50); %Basophils 0.2 % (0.0-1.0); %Eosinophils 0.6 % (0.0-10.0); %Lymphocytes 37.4 % (21.0-51.0); %Monocytes 6.7 % (0.0-10.0); Mean Corpuscular HGB CONC 32.4 g/dL (32.0-36.0); Mean Corpuscular Hemoglobin 30.4 pg (27.0-31.0); Mean Corpuscular Volume 93.8 fL (78.0-98.0); Platelet Count 305 thou/uL (130-400); RBC Distribution Width 19.9 % (11.5-14.5); Red Blood Cell (RBC) Count 3.61 mill/uL (4.70-6.10); White Blood Cell (WBC) Count 6.8 thou/uL (4.8-10.8)
--- NOTE | 2018-11-11 14:23 | RAD ---
EXAM: Chest 2 views: HISTORY: Chest discomfort COMPARISON: None. FINDINGS: There is a normal-sized cardiomediastinal silhouette. There is no evidence of consolidation, mass, or pleural effusion. The bones are unremarkable. IMPRESSION: No evidence of acute cardiopulmonary disease
[2018-11-11 14:46] LABS: ALT (SGPT) 23 U/L (8-55); AST (SGOT) 63 U/L (5-34); Albumin 3.4 g/dL (3.4-4.8); Alkaline Phosphatase 244 U/L (40-150); Anion Gap 16 mmol/L (10-20); BUN (Urea Nitrogen) 5 mg/dL (8.4-25.7); Bilirubin, Total 0.5 mg/dL (0.2-1.2); Calc. Creatinine Clearance 0 mL/min (70-130); Calcium 8.5 mg/dL (7.8-10.44); Carbon Dioxide 22 mmol/L (23-31); Chloride 104 mmol/L (98-107); Estimated GFR-MDRD Greater than 90; Globulin 3.6 g/dL (2.4-3.5); Glucose 100 mg/dL (80-115); Potassium 3.5 mmol/L (3.5-5.1); Sodium 138 mmol/L (136-145)
[2018-11-11 14:47] LABS: Bilirubin Negative (Negative); Blood, Urine Negative (Negative); Clarity Clear (Clear); Glucose, Urine (Dipstick) Normal (Negative); Leukocyte Negative Leu/uL (Negative); Nitrite Negative (Negative); Protein, Urine (Dipstick) Negative (Neg-Trace); Urobilinogen Normal mg/dL (Less than 2)
--- NOTE | 2018-11-11 16:27 | CT ---
CT ANGIOGRAM THORAX WITH IV CONTRAST AND 3D RECONSTRUCTIONS: History: Dyspnea, weakness. Anemia. Comparison: None. FINDINGS: No filling defects are seen in the pulmonary arteries to suggest a pulmonary embolus. Vascular calcifications are seen in the pulmonary arteries and to a lesser extent involving the thora cic aorta. The thoracic aorta is normal in caliber without evidence of an aortic dissection. Mediastinal structures have a normal appearance and there is no evidence of lymphadenopathy. There are linear densities seen within the lungs bilaterally, greater at each lung base and dependent portion of the lungs most likely attributable to atelectasis. No discrete pulmonary nodule, mass, or pleural effusion is seen bilaterally. Visualized upper abdomen demonstrated diminished attenuation of the liver suggesting fatty infiltrati on. There is a compression fracture involving the endplate of the L1 vertebral body incompletely imaged o r evaluated on this exam. The exact age is indeterminate. IMPRESSION: 1. Wedge shaped compression involving the inferior endplate of the L1 vertebral body. The exact age o f this fracture is indeterminate. This could potentially be more recent in origin. Clinical correlati on is recommended. 2. No CT evidence of a pulmonary embolus. 3. Dependent atelectasis bilaterally. 4. Fatty infiltration of the visualized liver. 5. Dense vascular calcifications in the coronary arteries. POS: [facility]
== END 2018-11-11 16:50 | disposition home or self-care (01) ==
LOC: ERS 13:05
DX: R53.1 Weakness (principal); F41.9 Anxiety disorder, unspecified; F32.9 Major depressive disorder, single episode, unspecified; F17.210 Nicotine dependence, cigarettes, uncomplicated; Z79.899 Other long term (current) drug therapy
CPT/HCPCS: 36415; 71046; 71275; 80053; 81003; 84484; 85025; 85379; 93005; 96360; Q9966

== ENCOUNTER 2018-11-20 14:55 | Observation (INO) | payer MEDICARE, BC ==
[2018-11-20 15:45] LABS: Hemoglobin 11.5 g/dL (14.0-18.0); Mean Corpuscular HGB CONC 33.4 g/dL (32.0-36.0); Mean Corpuscular Hemoglobin 31.5 pg (27.0-31.0); Mean Corpuscular Volume 94.6 fL (78.0-98.0); Mean Platelet Volume 8.8 fL (7.4-10.4); Platelet Count 211 thou/uL (130-400); RBC Distribution Width 19.2 % (11.5-14.5); Red Blood Cell (RBC) Count 3.66 mill/uL (4.70-6.10); White Blood Cell (WBC) Count 3.5 thou/uL (4.8-10.8)
[2018-11-20 16:05] LABS: ALT (SGPT) 43 U/L (8-55); AST (SGOT) 155 U/L (5-34); Albumin 3.4 g/dL (3.4-4.8); Alcohol 274 mg/dL (Less than 10); Alkaline Phosphatase 224 U/L (40-110); Anion Gap 15 mmol/L (10-20); BUN (Urea Nitrogen) 6 mg/dL (8.4-25.7); Bilirubin, Total 0.6 mg/dL (0.2-1.2); Calc. Creatinine Clearance 0 mL/min (70-130); Calcium 8.2 mg/dL (7.8-10.44); Carbon Dioxide 25 mmol/L (23-31); Chloride 105 mmol/L (98-107); Estimated GFR-MDRD Greater than 90; Globulin 3.3 g/dL (2.4-3.5); Glucose 96 mg/dL (80-115); Protein, Total 6.7 g/dL (5.8-8.1); Sodium 141 mmol/L (136-145)
[2018-11-20 16:12] LABS: Anisocytosis SLIGHT = 6-15 cells (100X) (0-5/hpf); Band 1 % (5-11); Lymphocytes 57 % (21-51); MDiff Complete? YES; Monocytes 6 % (0-10); Neutrophil 36 % (42-75); Platelet Morphology Comment Appears Adequate
--- NOTE | 2018-11-20 16:21 | CT ---
CT Brain WO Con: 11/20/2018 3:51 PM CLINICAL HISTORY: Syncope and collapse. COMPARISON: None. FINDINGS: Hemorrhage: None. Ventricular system: Mild prominence related to compensatory dilatation from cerebral volume loss. Cerebral parenchyma: Normal Midline shift: None. Mass: No mass effect. Calvarium: Normal. Visualized Paranasal sinuses: Scattered mild inflammatory mucosal thickening. IMPRESSION: No acute intracranial abnormalities.
--- NOTE | 2018-11-20 16:47 | RAD ---
Exam: Chest one view HISTORY:Syncope Comparison: 11/11/2018 FINDINGS: Lungs: There is patchy density in the left lower lung zone. Cardiac silhouette: Normal size Pulmonary vessels: Normal Pleural Spaces: Clear Pneumothorax: None Osseous abnormalities: Comminuted fracture the lateral right clavicle. Multiple left rib deformities. IMPRESSION: Patchy left basilar density with adjacent multifocal left rib deformity. Correlate clinically. Comminuted lateral right clavicular fracture.
[2018-11-20] MEDS ORDERED: Piperacillin/Tazobactam 4.5 GM VIAL ONE (17:04)
--- NOTE | 2018-11-20 17:38 | CT ---
CT CERVICAL SPINE NONCONTRAST: DATE: 11/20/2018 HISTORY: cervical trauma FINDINGS: There are no jumped or perched facets. There is no evidence of acute fracture. The vertebral body hei ghts are maintained. There is no prevertebral soft tissue swelling. IMPRESSION: No evidence of acute fracture or acute traumatic subluxation.
--- NOTE | 2018-11-20 17:56 | CT ---
CT THORAX WITH CONTRAST CT ABDOMEN WITH CONTRAST CT PELVIS WITH CONTRAST CT THORACIC SPINE WITH CONTRAST CT LUMBAR SPINE WITH CONTRAST: (Trauma protocol) DATE: 11/20/2018 HISTORY: Trauma to the chest, abdomen, and pelvis TECHNIQUE: IV administration of iodinated contrast media. No oral contrast media. Single phase scans of thorax, abdomen, and pelvis. Sagittal reconstructions of thoracic and lumbar spine. FINDINGS: Lungs: No contusion. Pleura: No pneumothorax or hemothorax. Thoracic aorta: No dissection or rupture. Mediastinum: No hematoma. No lymphadenopathy. HEART: Extensive consultation of LAD. No cardiomegaly or pericardial effusion. Abdomen and pelvis: Liver: No laceration. Diffusely low attenuation represents fatty liver. Spleen: No laceration Pancreas: No surrounding fluid or fat stranding. Kidneys: No hydronephrosis or laceration. 3 cm left renal cyst. 1.5 cm right renal cyst. 0.5 cm right renal calculus. Bladder: No gross evidence of rupture. Abdominal aorta: No dissection or rupture. Small bowel: No dilation. Colon: No adjacent fat stranding. Free air: None. Free fluid: None. Bilateral symmetrical low attenuation structures in the inguinal canals. Skeleton: Right clavicle: Comminuted, mildly displaced distal fracture. Ribs: No grossly displaced acute fracture. Multiple old fractures of left posterior lateral ribs. Sternum: No grossly displaced acute fracture. Thoracic spine: No acute compression fracture. Lumbar spine: Compression fracture of inferior endplate of L1. No edema or hematoma in prevertebral s pace. Overall approximately 20% loss of height.. Pelvis: No grossly displaced acute fracture. No dislocation. IMPRESSION: 1. Compression fracture at inferior endplate of L1 lumbar vertebra, of indeterminate age. 2. Acute, traumatic, minimally or mildly displaced fracture of distal right clavicle. 3. No evidence of any other acute traumatic injury within the thorax, abdomen, or pelvis. 4. Hepatic steatosis. 5. Multiple old left rib fracture deformities. 6. Coronary atherosclerotic disease due to calcified coronary lesion. 7. Right nephrolithiasis. 8. Low-attenuation structures in the bilateral inguinal canals: Either mild cryptorchidism or bilater al hydroceles.
[2018-11-20] MEDS ORDERED: Multivitamins, Adult 10 ML, Thiamine HCl 100 MG, Folic Acid 1 MG in Dextrose 5 %-0.45 %... IV ONE (19:30)
[2018-11-20 19:57] LABS: Actual Bicarbonate (HCO3a) 21.7 mEq/L (22-28); Analyzer IN Cardio ER; Base Excess (BEa) -2.7 mEq/L (-2.0 to +3.0); CO2 Tension 36.1 mmHg (35.0-45.0); Calcium, Ionized 1.08 mmol/L (1.12-1.30); Carboxyhemoglobin (COHb) 1.1 gm% (0.0-3.0); Hemoglobin (Hb) 11.3 g/dL (14.0-18.0); O2 Tension (PaO2) 93.2 mmHg (> 80.0); Potassium - ABG Lab 3.66 mmol/L (3.70-5.30)
[2018-11-20 19:57] LABS: Phosphorus 3.3 mg/dL (2.3-4.7)
[2018-11-20 19:59] LABS: ALV-art Gradient 61.315 (0-20); Puncture Site RRA
[2018-11-20] MEDS ORDERED: ISOVUE-370 76%-LOCM 1 ML ONE (20:46)
[2018-11-21] MEDS ORDERED: Ondansetron PF 4 MG/2 ML Vial IVP PRN ×2 (03:04→06:46)
[2018-11-21] MEDS ORDERED: Acetaminophen 325 MG TAB PO PRN ×2 (03:04→06:47)
[2018-11-21] MEDS ORDERED: Ondansetron ODT 4 MG TAB SL PRN ×2 (03:04→06:46)
[2018-11-21] MEDS ORDERED: Sodium Chloride 0.9% 1,000 ML IV SCH (03:04)
[2018-11-21 04:15] VITALS: BMI 23.3
[2018-11-21] MEDS: Sodium Chloride 0.9% 1,000 ML IV SCH ×3 (06:19→23:14)
[2018-11-21] MEDS ORDERED: traMADol HCl 50 MG TAB PO SCH (07:00)
[2018-11-21] MEDS ORDERED: Diazepam 5 MG TAB PO PRN (09:17)
[2018-11-21] MEDS ORDERED: Diazepam 5 MG TAB PO SCH (09:30)
[2018-11-21] MEDS ORDERED: Thiamine HCl 200 MG/2 ML VIAL IM SCH (09:30)
--- NOTE | 2018-11-21 12:37 | HP ---
PRIMARY CARE PHYSICIAN: Dr. Germain. CHIEF COMPLAINT: Alcohol intoxication and syncope. HISTORY OF PRESENT ILLNESS: Mr. Carmona is a 68-year-old man with a past medical history of alcohol abuse and depression, who had presented to the ED yesterday evening after he was drinking and had passed out and had fallen to the ground. He was brought into the ED and found to be intoxicated with alcohol of 274. His initial workup including a CT brain was normal. A CT cervical spine was also found to be negative at that time; however, a portable chest x-ray and a CT of chest, abdomen, and pelvis did show a compression fracture at the inferior endplate of L1 lumbar vertebrae, which was found on a previous CT last month and an acute traumatic minimally or mildly displaced fracture of distal right clavicle was also noted. The patient was given a TLSO brace to wear for his chronic L1 fracture, and he was started on the EMRY protocol, given IV fluid hydration along with tramadol for his pain. He had become slightly hypoxic and had been given a DuoNeb and oxygen as needed, which now remains on oxygen 2 L via nasal cannula and is saturating well. He had denied any fever, chills, headache, blurred vision or any further dizziness; any chest pain, palpitations, or shortness of breath. He states that he has some mild abdominal pain and back pain along with some nausea and vomiting. He states over the last several days he has not had an appetite, and he states that he drinks daily. He was admitted a month ago for the same thing, and he ended up getting an endoscopy from GI due to acute anemia and had needed a blood transfusion. The EGD found gastritis, however, no acute bleeding during that time. Also, Heme-Onc had seen him and had also determined that the patient was iron deficient, therefore was transfused with iron and was sent home with oral iron supplementation, which he has been taking. REVIEW OF SYSTEMS: All other systems reviewed and found to be negative unless mentioned in HPI. PAST MEDICAL HISTORY: Hypotension and alcoholism. PAST SURGICAL HISTORY: Cataract surgery and a lipoma removed along with a kidney stone removal via lithotripsy. ALLERGIES: NO KNOWN DRUG ALLERGIES. SOCIAL HISTORY: The patient is with 1 child. He is full code. His surrogate decision maker is his sister, Ira. He states that he drinks vodka daily of an unknown amount; however, denies tobacco or illicit drug use. CURRENT MEDICATIONS: 1. Gabapentin 300 mg oral 3 times daily. 2. Ferrous sulfate 325 mg oral daily. 3. Buspirone 5 mg p.o. b.i.d. 4. Thiamine 100 mg oral daily. 5. Multivitamin 1 tablet oral daily. PHYSICAL EXAMINATION: VITAL SIGNS: BP 114/69, pulse 68, respirations 16, temperature 98.7, O2 saturation 95% on 2 L of oxygen via nasal cannula. HEENT: Atraumatic, normocephalic. Pupils are round and reactive to light. Extraocular muscles intact. Moist mucous membranes. 2 L via nasal cannula in place. NECK: Soft, supple. Trachea midline. CARDIOVASCULAR: Positive S1 and S2. Regular rate and rhythm. No murmur auscultated. RESPIRATORY: Clear to auscultation bilaterally. No wheezes, rales, or rhonchi. ABDOMEN: Soft, nontender, slightly distended noted. Bowel sounds present. EXTREMITIES: Moves all extremities equal. Pedal and radial pulses 2+ bilaterally. No edema noted. NEUROLOGIC: Cranial nerves 2 through 12 grossly intact. No focal deficits noted. Speech intact and normal. Gait not assessed. SKIN: Warm, dry, and intact. No rashes. No ulceration noted. PSYCHIATRIC: Good mood and affect. LABORATORY DATA: WBC 3.5, RBC 3.66, hemoglobin 11.5, platelets 211. Sodium 141, potassium 4.0, anion gap 15, BUN 6, creatinine 0.73, estimated GFR greater than 90, glucose 96, phosphorus 3.3, magnesium 1.6, AST 155, ALT 43, and alkaline phosphatase 224. Troponin less than 0.010. Ammonia 26. Plasma alcohol 274. DIAGNOSTIC IMAGING: CT chest, abdomen, and pelvis revealed a compression fracture of inferior endplate of L1 lumbar vertebrae of an indeterminate age and acute traumatic and minimally or mildly displaced fracture of distal right clavicle. CT brain without contrast showed no acute intracranial abnormalities. Portable chest x-ray showed patchy left basilar densely with adjacent multifocal left rib deformity from old rib fracture and a comminuted lateral right clavicle fracture noted. CT cervical spine showed no evidence of acute fracture or acute traumatic subluxation noted. ASSESSMENT/PLAN: 1. Syncope, likely secondary to alcohol abuse; however, we will check the patient's orthostatic vital signs and monitor closely. He will be started on MERY protocol and we will monitor him closely. 2. Alcohol abuse, as above. 3. Right clavicle fracture. Continue pain management as needed, and he will likely follow up with Orthopedic Surgery as outpatient. 4. Chronic compression fracture of L1 vertebrae. Continue with TLSO brace and follow up with Orthopedic Surgery. 5. History of hypertension, currently stable at this time. We will check orthostatic vital signs and monitor blood pressure and other vital signs closely during hospital course. 6. Strongly recommended alcohol sobriety. 7. Deep venous thrombosis and gastrointestinal prophylaxis. 8. Code status. Full code. DISPOSITION: Pending further workup and clinical findings. Job ID: [id number]
[2018-11-21] MEDS: Gabapentin 300 MG CAP PO SCH ×2 (17:50→20:28)
[2018-11-21] MEDS: busPIRone HCl 5 MG TAB PO SCH (20:28)
[2018-11-21] MEDS: Prevnar 13-Val Conj/PF 0.5 ML SYRINGE IM ONE ×2 (20:30→20:32)
[2018-11-21] MEDS ORDERED: FLU VACC TS2019-20(65YR UP)/PF 180 MCG/0.5 ML SYRINGE IM ONE (21:00)
[2018-11-22] MEDS: busPIRone HCl 5 MG TAB PO SCH ×2 (08:35→20:42)
[2018-11-22] MEDS: Multivitamin W/ Minerals 1 TAB PO SCH (08:35)
[2018-11-22] MEDS: Folic Acid 1 MG TAB PO SCH (08:35)
[2018-11-22] MEDS: Thiamine 100 MG TAB PO SCH (08:35)
[2018-11-22] MEDS: Gabapentin 300 MG CAP PO SCH ×3 (08:35→20:42)
[2018-11-22] MEDS: Ferrous Sulfate 325 MG TAB PO SCH (08:35)
[2018-11-22] MEDS: Magnesium Oxide 400 MG TAB PO SCH (08:35)
[2018-11-22] MEDS: Diazepam 5 MG TAB PO PRN ×2 (08:49→20:42)
[2018-11-22 09:09] LABS: #Eosinphils 0.1 thou/uL (0.0-0.7); #Lymphocytes 1.5 thou/uL (1.20-3.40); #Monocytes 0.7 thou/uL (0.11-0.59); #Neutrophils 7.3 thou/uL (1.40-6.50); %Basophils 0.3 % (0.0-1.0); %Eosinophils 0.6 % (0.0-10.0); %Lymphocytes 15.6 % (21.0-51.0); %Monocytes 7.3 % (0.0-10.0); %Neutrophils 76.3 % (42.0-75.0); Mean Corpuscular HGB CONC 32.9 g/dL (32.0-36.0); Mean Corpuscular Hemoglobin 31.2 pg (27.0-31.0); Mean Corpuscular Volume 94.9 fL (78.0-98.0); Mean Platelet Volume 9.4 fL (7.4-10.4); Platelet Count 153 thou/uL (130-400); Red Blood Cell (RBC) Count 3.51 mill/uL (4.70-6.10); White Blood Cell (WBC) Count 9.6 thou/uL (4.8-10.8)
[2018-11-22] MEDS: Sodium Chloride 0.9% 1,000 ML IV SCH ×2 (09:09→20:43)
[2018-11-22 09:44] LABS: ALT (SGPT) 32 U/L (8-55); AST (SGOT) 89 U/L (5-34); Alkaline Phosphatase 196 U/L (40-110); Anion Gap 11 mmol/L (10-20); BUN (Urea Nitrogen) 4 mg/dL (8.4-25.7); Bilirubin, Total 1.5 mg/dL (0.2-1.2); Calc. Creatinine Clearance 107 mL/min (70-130); Calcium 7.6 mg/dL (7.8-10.44); Carbon Dioxide 22 mmol/L (23-31); Chloride 104 mmol/L (98-107); Estimated GFR-MDRD Greater than 90; Globulin 3.3 g/dL (2.4-3.5); Glucose 111 mg/dL (80-115); Magnesium 1.6 mg/dL (1.6-2.6); Phosphorus 1.8 mg/dL (2.3-4.7); Potassium 3.3 mmol/L (3.5-5.1); Protein, Total 6.3 g/dL (5.8-8.1); Sodium 134 mmol/L (136-145)
[2018-11-22] MEDS ORDERED: Magnesium Sulfate 2 GM in Sodium Chloride 0.9% 100 ML IVPB SCH (10:00)
[2018-11-22] MEDS ORDERED: Magnesium 2 GM/50 ML 2 GM in Premix Bag 1 BAG IVPB SCH (10:00)
[2018-11-22] MEDS: K-Phos Neutral 250 MG TAB PO SCH ×2 (11:54→16:05)
[2018-11-22] MEDS ORDERED: Potassium Chloride 10 MEQ TAB PO SCH (17:00)
--- NOTE | 2018-11-22 23:25 | PDOC.HOSPP ---
- Subjective Encounter Date: 11/22/18 Encounter Time: 15:00 Subjective: Patient seen and examined for AMS/fall. Patient denies any syncope event - he startes that he felt weak. No new complaints. No overnight events - Objective Vital Signs & Weight: Vital Signs (12 hours) Temp Pulse Resp BP Pulse Ox 11/22/18 19:29 118/62 11/22/18 16:31 98.0 F 84 18 115/70 98 11/22/18 11:50 109/57 L 11/22/18 11:49 98.4 F 86 16 109/57 L 94 L Weight Weight 158 lb I&O: 11/21/18 11/22/18 11/23/18 06:59 06:59 06:59 Intake Total 2540 3640 Output Total 950 1060 Balance 1590 2580 Result Diagrams: 11/22/18 08:47 11/22/18 08:47 EKG Reviewed by me: Yes (Tele SR) Hospitalist ROS - Review of Systems Cardiovascular: denies: chest pain, palpitations, orthopnea, paroxysmal noc. dyspnea, edema, light headedness, other Gastrointestinal: denies: nausea, vomiting, abdominal pain, diarrhea, constipation, melena, hematochezia, other - Medication Medications: Active Medications Generic Name Dose Route Start Last Admin Trade Name Freq PRN Reason Stop Dose Admin Buspirone HCl 5 mg 11/21/18 21:00 11/22/18 20:42 Buspar PO 5 mg BID DEVANG Administration Diazepam 5 mg 11/22/18 04:00 11/22/18 20:42 Valium PO 5 mg Q4H PRN Administration FOR ASE 10 OR GREATER Ferrous Sulfate 325 mg 11/22/18 09:00 11/22/18 08:35 Feosol PO 325 mg DAILY DEVANG Administration Folic Acid 1 mg 11/22/18 09:00 11/22/18 08:35 Folvite PO 1 mg DAILY DEVANG Administration Gabapentin 300 mg 11/21/18 15:00 11/22/18 20:42 Neurontin PO 300 mg TID DEVANG Administration Sodium Chloride 1,000 mls @ 100 mls/hr 11/21/18 06:15 11/22/18 20:43 Normal Saline 0.9% IV 1,000 mls .Q10H DEVANG Administration Iron/Minerals/Multivitamins 1 tab 11/22/18 09:00 11/22/18 08:35 Theragran M PO 1 tab DAILY DEVANG Administration Magnesium Oxide 400 mg 11/22/18 09:00 11/22/18 08:35 Magnesium Oxide PO 400 mg DAILY DEVANG Administration Ondansetron HCl 4 mg 11/21/18 06:46 11/21/18 06:48 Zofran IVP 4 mg Q6H PRN Administration Nausea/Vomiting Ondansetron HCl 4 mg 11/21/18 06:46 11/21/18 09:58 Zofran Odt SL 4 mg Q6H PRN Administration Nausea/Vomiting Phosphorus 250 mg 11/22/18 12:00 11/22/18 16:05 Kphos Neutral PO 250 mg TID-WM DEVANG Administration Sodium Chloride 10 ml 11/21/18 09:00 11/22/18 20:50 Flush - Normal Saline IVF Not Given Q12HR DEVANG Thiamine HCl 100 mg 11/22/18 09:00 11/22/18 08:35 Thiamine PO 100 mg DAILY DEVANG Administration - Exam General Appearance: NAD Neck: supple, no JVD Heart: RRR, no gallops Respiratory: CTAB, no rales Gastrointestinal: soft, non-tender, non-distended, normal bowel sounds Extremities: no edema Neurological: no new deficit Hosp A/P - Plan DVT proph w/SCDs Toxic Metabolic Encephalopathy due to Alcohol intoxication L1 fracture (was present on CT from last month) RtClavicular fracture Physical deconditioning HTN PLAN: PT consult Rehab eval Cont ASE protocol Counselled
[2018-11-23 06:10] LABS: ALT (SGPT) 26 U/L (8-55); AST (SGOT) 71 U/L (5-34); Albumin 2.5 g/dL (3.4-4.8); Alkaline Phosphatase 167 U/L (40-110); Anion Gap 8 mmol/L (10-20); BUN (Urea Nitrogen) Less than 4 mg/dL (8.4-25.7); Bilirubin, Total 1.2 mg/dL (0.2-1.2); Calc. Creatinine Clearance 119 mL/min (70-130); Calcium 7.6 mg/dL (7.8-10.44); Carbon Dioxide 24 mmol/L (23-31); Chloride 109 mmol/L (98-107); Estimated GFR-MDRD Greater than 90; Globulin 2.9 g/dL (2.4-3.5); Glucose 101 mg/dL (80-115); Magnesium 1.8 mg/dL (1.6-2.6); Phosphorus 2.4 mg/dL (2.3-4.7); Potassium 3.2 mmol/L (3.5-5.1); Protein, Total 5.4 g/dL (5.8-8.1); Sodium 138 mmol/L (136-145)
[2018-11-23] MEDS: K-Phos Neutral 250 MG TAB PO SCH ×2 (08:23→11:23)
[2018-11-23] MEDS: busPIRone HCl 5 MG TAB PO SCH (08:23)
[2018-11-23] MEDS: Thiamine 100 MG TAB PO SCH (08:23)
[2018-11-23] MEDS: Gabapentin 300 MG CAP PO SCH (08:24)
[2018-11-23] MEDS: Magnesium Oxide 400 MG TAB PO SCH (08:24)
[2018-11-23] MEDS: Multivitamin W/ Minerals 1 TAB PO SCH (08:24)
[2018-11-23] MEDS: Ferrous Sulfate 325 MG TAB PO SCH (08:24)
[2018-11-23] MEDS: Folic Acid 1 MG TAB PO SCH (08:24)
[2018-11-23] MEDS: Sodium Chloride 0.9% 1,000 ML IV SCH (08:25)
[2018-11-23] MEDS ORDERED: Cyclobenzaprine 10 MG TAB PO PRN (10:30)
[2018-11-23] MEDS ORDERED: Cyclobenzaprine 10 MG TAB PO SCH (10:30)
[2018-11-23] MEDS ORDERED: Potassium Chloride 20 MEQ TAB PO SCH (11:15)
[2018-11-23 12:06] VITALS: TEMP 98.4
[2018-11-23 12:53] VITALS: BP 130/57
--- NOTE | 2018-11-23 14:43 | EKG ---
Test Reason : Blood Pressure : / mmHG Vent. Rate : 084 BPM Atrial Rate : 084 BPM P-R Int : 158 ms QRS Dur : 086 ms QT Int : 398 ms P-R-T Axes : 053 -37 018 degrees QTc Int : 470 ms Normal sinus rhythm Left axis deviation Low voltage QRS Inferior infarct , age undetermined Abnormal ECG Confirmed by ALONSO GUTIERREZ DO ([id number]), publications editor JOSIAH VINES ([id number]) on 11/23/2018 2:42:21 PM Referred By: Confirmed By:ALONSO GUTIERREZ DO
--- NOTE | 2018-11-23 21:36 | DIS ---
DATE OF ADMISSION: 11/20/2018 DATE OF DISCHARGE: 11/23/2018 PRIMARY CARE PROVIDER: Dr. Salvador Germain. DISCHARGE DIAGNOSES: 1. Syncope. 2. Alcohol abuse. 3. Chronic compression fracture of L1 vertebra. 4. Right clavicular fracture. CONDITION OF PATIENT ON THE DAY OF DISCHARGE: Stable. I assessed Mr. Mathew Cuevas on the day of discharge. He denies any chest pain or shortness of breath. Vital signs are stable. S1 and S2 are heard, regular. Lungs are clear to auscultation bilaterally. DISCHARGE MEDICATIONS: 1. Buspirone 5 mg 2 times a day. 2. Gabapentin 300 mg 3 times a day. 3. Ferrous sulfate 325 mg daily. 4. Multivitamins one tablet daily. 5. Thiamine 100 mg daily. FOLLOWUP APPOINTMENTS: Primary care provider in 1 weeks' time. Orthopedic Surgery in 2 weeks' time. Neurosurgery, Dr. Fernández, in 2 weeks' time. HOSPITAL COURSE: Mr. Mathew Cuevas is a pleasant 68-year-old gentleman, who was admitted to [facility] on November 20, 2018. Please refer to Mr. Best's history and physical note dated November 21, 2018, for further details. At the time of his admission, his case was discussed with Neurosurgery and Trauma Services by ER physician. He was admitted to Hospitalist Service. He was seen by Therapy Services. He improved clinically. He was fitted with a TLSO brace. He is being discharged to [facility] for further management. Many thanks for allowing me to participate in your patient's care. Please feel free to contact me with any questions or concerns. DISCHARGE DESTINATION: [facility]. Job ID: [id number]
== END 2018-11-23 14:13 ==
LOC: ERS 14:55 → ERHOLD 20:01 → 2NO 11-21 03:39
PROVIDERS: ADMIT Hospitalist; ATTEND Hospitalist
DX: F10.129 Alcohol abuse with intoxication, unspecified (principal); R55 Syncope and collapse; F32.9 Major depressive disorder, single episode, unspecified; M48.56XA Collapsed vertebra, not elsewhere classified, lumbar region, initial encounter for fracture; S42.001A Fracture of unspecified part of right clavicle, initial encounter for closed fracture; F17.210 Nicotine dependence, cigarettes, uncomplicated; I10 Essential (primary) hypertension; Z79.899 Other long term (current) drug therapy; Y90.8 Blood alcohol level of 240 mg/100 ml or more; W18.30XA Fall on same level, unspecified, initial encounter
CPT/HCPCS: 70450; 71045; 71260; 72125; 74177; 80053 ×3; 80307; 82140; 82805; 83735 ×3; 84100 ×3; 84484; 85025 ×2; 85379; 90662; 90670; 93005; 94640; 96361 ×3; 96365; 96366 ×2; 96367; 96372; 96375; 97116; 97139; 97535; 99285; G0008; G0009; G0378 ×5; 36415; 90471; J2405; J2543; J3411; J3475; J3490; J7042; J7620; Q0162; Q9966

== ENCOUNTER 2018-12-07 21:44 | Emergency (ER) | payer MEDICARE, BC ==
--- NOTE | 2018-12-07 23:11 | CT ---
EXAM: CT of the lumbar spine without contrast HISTORY: Low back pain; recent L1 compression fracture COMPARISON: 11/20/2018 TECHNIQUE: Multiple contiguous axial images were obtained in a CT of the lumbar spine without contras t. Sagittal and coronal reformats were performed. FINDINGS: There is a stable wedge compression fracture of L1 vertebral body in place. This demonstrat es approximately 25% height loss . No other fractures are seen. Normal alignment of the vertebral bodies is seen. Minimal degenerative changes are present. There is fatty infiltration of the liver. Atherosclerotic calcific lesions are seen in the aorta.. The other prevertebral and paraspinal soft tissues are unremarkable. IMPRESSION: Stable L1 compression fracture.
== END 2018-12-08 00:15 | disposition home or self-care (01) ==
LOC: ERS 21:44
DX: S32.010A Wedge compression fracture of first lumbar vertebra, initial encounter for closed fracture (principal); F32.9 Major depressive disorder, single episode, unspecified; F41.9 Anxiety disorder, unspecified; F17.210 Nicotine dependence, cigarettes, uncomplicated; Z79.899 Other long term (current) drug therapy; W18.30XA Fall on same level, unspecified, initial encounter
CPT/HCPCS: 72131

== ENCOUNTER 2018-12-18 13:08 | Outpatient (CLI) | payer MEDICARE, BC ==
--- NOTE | 2018-12-18 15:08 | RAD ---
LUMBAR SPINE: 12/18/18 Two views. HISTORY: Fall. L1 compression fracture. Comparison made to CT lumbar spine 12/07/18. FINDINGS: Mild anterior compression of the L1 vertebra again noted. Loss of disc space at T12.L1 is again seen. Posterior height and alignment is preserved. No significant change from the exam of 12/07/18. The fi ndings appear to represent inferior end plate compression as noted on the prior CT. The other lumbar vertebrae maintain normal height. Disc spaces are otherwise preserved. There are deg enerative changes which appear stable. IMPRESSION: Mild anterior wedge compression of the L1 vertebrae appears stable. Degenerative changes again noted. POS: OFF
== END 2018-12-18 13:09 | disposition home or self-care (01) ==
LOC: TBSIIMAG 13:08
PROVIDERS: ATTEND Surgery
DX: S32.010A Wedge compression fracture of first lumbar vertebra, initial encounter for closed fracture (principal); M47.816 Spondylosis without myelopathy or radiculopathy, lumbar region
CPT/HCPCS: 72100

== ENCOUNTER 2018-12-24 16:56 | Emergency (ER) | payer MEDICARE, BC ==
--- NOTE | 2018-12-24 18:07 | CT ---
EXAM: CT brain without contrast HISTORY: Fall with head trauma and hypotension COMPARISON: 11/20/2018 TECHNIQUE: Multiple contiguous axial images were obtained and a CT of the brain without contrast. FINDINGS: The brain is normal in morphology and attenuation without focal lesions or confluent areas of infarction. There is no evidence of hydrocephalus, intracranial hemorrhage, or extra-axial fluid collection. The calvarium and overlying soft tissues are unremarkable. The visualized paranasal sinuses and masto id air cells are well aerated. IMPRESSION: No evidence of acute intracranial abnormality
[2018-12-24 18:14] LABS: Bilirubin Negative (Negative); Blood, Urine Negative (Negative); Clarity Clear (Clear); Glucose, Urine (Dipstick) Normal (Negative); Leukocyte Negative Leu/uL (Negative); Nitrite Negative (Negative); Protein, Urine (Dipstick) Negative (Neg-Trace); Urobilinogen Normal mg/dL (Less than 2)
[2018-12-24 18:24] LABS: Hemoglobin 12.7 g/dL (14.0-18.0); Mean Corpuscular HGB CONC 32.9 g/dL (32.0-36.0); Mean Corpuscular Hemoglobin 31.6 pg (27.0-31.0); Mean Platelet Volume 9.5 fL (7.4-10.4); Platelet Count 97 thou/uL (130-400); RBC Distribution Width 15.9 % (11.5-14.5); Red Blood Cell (RBC) Count 4.01 mill/uL (4.70-6.10); White Blood Cell (WBC) Count 4.4 thou/uL (4.8-10.8)
[2018-12-24 18:40] LABS: Anisocytosis SLIGHT = 6-15 cells (100X) (0-5/hpf); Band 4 % (5-11); Lymphocytes 55 % (21-51); MDiff Complete? YES; Metamyelocyte 1 % (0-0); Monocytes 4 % (0-10); Neutrophil 35 % (42-75); Platelet Morphology Comment Appears Decreased; Target Cells SLIGHT = 2-5 cells (100X) (0-1/hpf); Tear Drops SLIGHT = 2-5 cells (100X) (0-1/hpf)
[2018-12-24 18:42] LABS: ALT (SGPT) 51 U/L (8-55); AST (SGOT) 162 U/L (5-34); Alcohol 328 mg/dL (Less than 10); Alkaline Phosphatase 200 U/L (40-110); Anion Gap 21 mmol/L (10-20); BUN (Urea Nitrogen) 7 mg/dL (8.4-25.7); Bilirubin, Total 0.6 mg/dL (0.2-1.2); Calc. Creatinine Clearance 0 mL/min (70-130); Calcium 7.9 mg/dL (7.8-10.44); Carbon Dioxide 18 mmol/L (23-31); Chloride 105 mmol/L (98-107); Estimated GFR-MDRD Greater than 90; Globulin 3.7 g/dL (2.4-3.5); Glucose 82 mg/dL (80-115); Potassium 3.3 mmol/L (3.5-5.1); Protein, Total 6.7 g/dL (5.8-8.1); Sodium 141 mmol/L (136-145)
== END 2018-12-24 21:03 | disposition home or self-care (01) ==
LOC: ERS 16:56
DX: F10.129 Alcohol abuse with intoxication, unspecified (principal); F41.9 Anxiety disorder, unspecified; F32.9 Major depressive disorder, single episode, unspecified; F17.210 Nicotine dependence, cigarettes, uncomplicated; Z79.899 Other long term (current) drug therapy; Y90.8 Blood alcohol level of 240 mg/100 ml or more
CPT/HCPCS: 36415; 70450; 80053; 80307; 81003; 85025; 93005; 96360

== ENCOUNTER 2019-01-29 13:53 | Outpatient (CLI) | payer MEDICARE, BC ==
--- NOTE | 2019-01-29 14:24 | RAD ---
2 views of the lumbar spine: 01/29/2019 COMPARISON: 12/18/2018 HISTORY: Low back pain FINDINGS: 5 lumbar type vertebral bodies are present with intact pedicles on frontal imaging. There i s a calcification overlying the region of the midpole right kidney suggesting a renal stone, measuring 5 mm in craniocaudal dimension. There is mild lower lumbar spine facet hypertrophy at L4-5 and L5-S1. Mild anterior wedging at L1 noted, unchanged when compared to the prior exam. Mild disc space narrowing at the lumbosacral junction. IMPRESSION: Degenerative change, stable when compared to the prior examination. Stable mild anterior wedging of the L1 vertebral body. No acute findings.
== END 2019-01-29 13:54 | disposition home or self-care (01) ==
LOC: BICRAD 13:53
PROVIDERS: ATTEND Surgery
DX: S22.009A Unspecified fracture of unspecified thoracic vertebra, initial encounter for closed fracture (principal); S32.009A Unspecified fracture of unspecified lumbar vertebra, initial encounter for closed fracture; M54.5 Low back pain; M47.816 Spondylosis without myelopathy or radiculopathy, lumbar region
CPT/HCPCS: 72100

== ENCOUNTER 2019-02-14 20:09 | Emergency (ER) | payer MEDICARE, BC ==
--- NOTE | 2019-02-14 20:48 | CT ---
Head CT without contrast 02/14/2019: COMPARISON: 12/24/2018 HISTORY: Fall TECHNIQUE: Axial CT imaging at 5 mm intervals from vertex through skull base without contrast FINDINGS: Imaged paranasal sinuses/mastoid air cells are unremarkable. No displaced calvarial fractur e. Mildly displaced bilateral nasal bone fractures are noted. No intracranial hemorrhage, midline shift, or mass effect. Mild diffuse cerebral volume loss. IMPRESSION: Bilateral nasal bone fractures. No intracranial hemorrhage.
--- NOTE | 2019-02-14 21:17 | CT ---
CT OF THE FACIAL BONES 02/14/19 COMPARISON: None. HISTORY: Trauma. TECHNIQUE: Axial CT imaging at 2.5 mm intervals through the facial bones without contrast. Coronal and sagittal reformatted imaging obtained. FINDINGS: The frontal sinuses, the maxillary sinuses, the ethmoid air cells and the sphenoid sinuses are well a erated. Comminuted displaced bilateral nasal bone fractures are present. The zygomatic arches and pte rygoid plates are intact. The temporomandibular joints and mandible demonstrate no acute findings. The patient is status post b ilateral paranasal sinus surgery. The orbital floor and medial orbital wall is intact bilaterally. IMPRESSION: Comminuted bilateral nasal bone fractures. POS: [facility]
[2019-02-14 21:44] LABS: #Lymphocytes 1.8 thou/uL (1.20-3.40); #Monocytes 0.5 thou/uL (0.11-0.59); %Basophils 0.5 % (0.0-1.0); %Eosinophils 0.7 % (0.0-10.0); %Lymphocytes 34.1 % (21.0-51.0); %Monocytes 8.9 % (0.0-10.0); %Neutrophils 55.9 % (42.0-75.0); Hemoglobin 10.1 g/dL (14.0-18.0); Mean Corpuscular HGB CONC 33.9 g/dL (32.0-36.0); Mean Corpuscular Hemoglobin 33.3 pg (27.0-31.0); Mean Corpuscular Volume 98.3 fL (78.0-98.0); Mean Platelet Volume 7.5 fL (7.4-10.4); Platelet Count 244 thou/uL (130-400); RBC Distribution Width 20.3 % (11.5-14.5); Red Blood Cell (RBC) Count 3.03 mill/uL (4.70-6.10); White Blood Cell (WBC) Count 5.4 thou/uL (4.8-10.8)
[2019-02-14 22:09] LABS: Alcohol 263 mg/dL (Less than 10); Anion Gap 19 mmol/L (10-20); BUN (Urea Nitrogen) 5 mg/dL (8.4-25.7); Calc. Creatinine Clearance 0 mL/min (70-130); Carbon Dioxide 21 mmol/L (23-31); Chloride 105 mmol/L (98-107); Estimated GFR-MDRD Greater than 90; Glucose 126 mg/dL (80-115); Potassium 3.6 mmol/L (3.5-5.1); Sodium 141 mmol/L (136-145)
== END 2019-02-14 22:50 | disposition home or self-care (01) ==
LOC: ERS 20:09
DX: S02.2XXA Fracture of nasal bones, initial encounter for closed fracture (principal); F10.129 Alcohol abuse with intoxication, unspecified; F41.9 Anxiety disorder, unspecified; F32.9 Major depressive disorder, single episode, unspecified; F17.210 Nicotine dependence, cigarettes, uncomplicated; Z79.899 Other long term (current) drug therapy; W18.2XXA Fall in (into) shower or empty bathtub, initial encounter
CPT/HCPCS: 12011; 36415; 70450; 70486; 80048; 80307; 85025

== ENCOUNTER 2019-03-12 13:30 | Outpatient (CLI) | payer MEDICARE, BC ==
--- NOTE | 2019-03-12 13:54 | RAD ---
EXAM: XR Lumbar Spine 2 Or 3 View PROVIDED CLINICAL HISTORY: Thoracolumbar spine fracture. Follow-up evaluation. COMPARISON: 01/29/2019. FINDINGS: There is mild right convex curvature of the thoracolumbar spine. Scattered osteophytes are seen in th e lumbar spine. There is a stable degree of height loss involving the mild wedge-shaped compression fracture of the L1 vertebral body. Remaining vertebral body heights are within normal limits. No subl uxation is visualized. Again noted is the calcification overlying the right renal shadow likely related to a renal calculus. Vascular calcifications are seen. IMPRESSION: 1. Stable degree of height loss involving a wedge-shaped compression fracture L1 vertebral body. 2. Stable mild degenerative changes in the lumbar spine with right convex curvature of thoracolumbar spine. 3. Right nephrolithiasis.
== END 2019-03-12 13:31 | disposition home or self-care (01) ==
LOC: TBSIIMAG 13:30
PROVIDERS: ATTEND Surgery
DX: M47.816 Spondylosis without myelopathy or radiculopathy, lumbar region (principal); S32.010D Wedge compression fracture of first lumbar vertebra, subsequent encounter for fracture with routine healing; M43.8X6 Other specified deforming dorsopathies, lumbar region; N20.0 Calculus of kidney
CPT/HCPCS: 72100

== ENCOUNTER 2019-04-02 09:47 | Emergency (ER) | payer MEDICARE, BC ==
[2019-04-02 10:32] LABS: #Lymphocytes 1.4 thou/uL (1.20-3.40); #Monocytes 0.6 thou/uL (0.11-0.59); #Neutrophils 4.6 thou/uL (1.40-6.50); %Basophils 0.3 % (0.0-1.0); %Eosinophils 0.4 % (0.0-10.0); %Lymphocytes 21.3 % (21.0-51.0); %Monocytes 9.5 % (0.0-10.0); %Neutrophils 68.5 % (42.0-75.0); Mean Corpuscular HGB CONC 33.9 g/dL (32.0-36.0); Mean Corpuscular Hemoglobin 36.6 pg (27.0-31.0); Mean Platelet Volume 7.9 fL (7.4-10.4); Platelet Count 231 thou/uL (130-400); RBC Distribution Width 17.4 % (11.5-14.5); Red Blood Cell (RBC) Count 2.73 mill/uL (4.70-6.10); White Blood Cell (WBC) Count 6.7 thou/uL (4.8-10.8)
[2019-04-02] MEDS ORDERED: Ondansetron PF 4 MG/2 ML Vial ONE (10:42)
[2019-04-02 10:46] LABS: Hypochromia SLIGHT = 6-15 cells (100X) (0-5/hpf); MDiff Complete? YES; Macrocytosis SLIGHT = 6-15 cells (100X) (0-5/hpf); Platelet Morphology Comment Appears Adequate; Polychromasia SLIGHT = 2-3 cells (100X) (0-2/hpf); Target Cells SLIGHT = 2-5 cells (100X) (0-1/hpf)
--- NOTE | 2019-04-02 10:46 | RAD ---
EXAM: Single view of the chest HISTORY: Nausea and vomiting COMPARISON: 11/20/2018 FINDINGS: Single view of the chest shows a normal sized cardiomediastinal silhouette. There is no sakina dence of consolidation, mass, or pleural effusion. The bones are unremarkable. IMPRESSION: No evidence of acute cardiopulmonary disease
[2019-04-02 10:57] LABS: ALT (SGPT) 25 U/L (8-55); AST (SGOT) 114 U/L (5-34); Acetaminophen Less than 6.0 mcg/mL (10.0-30.0); Albumin 2.4 g/dL (3.4-4.8); Alcohol 12 mg/dL (Less than 10); Alkaline Phosphatase 485 U/L (40-110); Anion Gap 19 mmol/L (10-20); BUN (Urea Nitrogen) 7 mg/dL (8.4-25.7); Bilirubin, Total 2.2 mg/dL (0.2-1.2); Calc. Creatinine Clearance 0 mL/min (70-130); Calcium 7.1 mg/dL (7.8-10.44); Carbon Dioxide 23 mmol/L (23-31); Chloride 101 mmol/L (98-107); Estimated GFR-MDRD Greater than 90; Globulin 3.9 g/dL (2.4-3.5); Glucose 112 mg/dL (80-115); Lipase 7 U/L (8-78); Potassium 3.7 mmol/L (3.5-5.1); Protein, Total 6.3 g/dL (5.8-8.1); Salicylate Less than 8.0 mg/dL (15.0-30.0); Sodium 139 mmol/L (136-145)
== END 2019-04-02 12:25 | disposition home or self-care (01) ==
LOC: ERS 09:47
DX: I49.3 Ventricular premature depolarization (principal); R11.2 Nausea with vomiting, unspecified; F41.9 Anxiety disorder, unspecified; F32.9 Major depressive disorder, single episode, unspecified; F17.210 Nicotine dependence, cigarettes, uncomplicated
CPT/HCPCS: 36415; 71045; 80053; 80307; 83690; 84484; 85025; 93005; 96361; 96374; J2405

== ENCOUNTER 2019-04-16 12:13 | Inpatient (IN) | payer MEDICARE, BC ==
[2019-04-16 13:00] LABS: Mean Corpuscular HGB CONC 33.1 g/dL (32.0-36.0); Mean Corpuscular Hemoglobin 33.6 pg (27.0-31.0); RBC Distribution Width 21.1 % (11.5-14.5); Red Blood Cell (RBC) Count 1.78 mill/uL (4.70-6.10); White Blood Cell (WBC) Count 15.3 thou/uL (4.8-10.8)
[2019-04-16 13:05] LABS: ALT (SGPT) 16 U/L (8-55); AST (SGOT) 62 U/L (5-34); Albumin 2.4 g/dL (3.4-4.8); Alkaline Phosphatase 357 U/L (40-110); Anion Gap 19 mmol/L (10-20); BUN (Urea Nitrogen) 13 mg/dL (8.4-25.7); Bilirubin, Total 3.3 mg/dL (0.2-1.2); Calc. Creatinine Clearance 0 mL/min (70-130); Calcium 6.9 mg/dL (7.8-10.44); Carbon Dioxide 21 mmol/L (23-31); Chloride 93 mmol/L (98-107); Estimated GFR-MDRD Greater than 90; Globulin 4.2 g/dL (2.4-3.5); Glucose 143 mg/dL (80-115); Lipase Less than 4 U/L (8-78); Potassium 3.5 mmol/L (3.5-5.1); Protein, Total 6.6 g/dL (5.8-8.1); Sodium 129 mmol/L (136-145)
--- NOTE | 2019-04-16 13:25 | RAD ---
SINGLE VIEW CHEST: Date: 04/16/2019 COMPARISON: 04/02/2019. HISTORY: Chest pressure and cough. FINDINGS: Single view of the chest shows a normal sized cardiomediastinal silhouette. There is elevation of the right hemidiaphragm. There are healing left rib fractures. There is no evidence of consolidation, ma ss, or pleural effusion. Atelectasis is seen in the left lung base. IMPRESSION: No evidence of acute cardiopulmonary disease. POS: [facility]
[2019-04-16 13:36] LABS: Platelet Count 349 thou/uL (130-400)
[2019-04-16 13:37] LABS: Hypochromia SLIGHT = 6-15 cells (100X) (0-5/hpf); Lymphocytes 15 % (21-51); MDiff Complete? YES; Mean Platelet Volume 7.8 fL (7.4-10.4); Monocytes 9 % (0-10); Neutrophil 76 % (42-75); Nucleated RBC 1 % (0); Platelet Morphology Comment Appears Adequate; Polychromasia SLIGHT = 2-3 cells (100X) (0-2/hpf); Target Cells MODERATE= 6-15 cells (100X) (0-1/hpf)
[2019-04-16 13:39] LABS: INR-International Normal Ratio 1.4; Prothrombin Time 17.1 SEC (12.0-14.7)
[2019-04-16] MEDS ORDERED: Iopamidol-370 76% 500 ML 1 ML ONE (13:58)
--- NOTE | 2019-04-16 14:44 | ULT ---
US Gallbladder RUQ History: Abdominal pain Comparison: None Findings: Real-time grayscale and color evaluation right upper quadrant of the abdomen was performed. Visualized portion of the aorta IVC and pancreas are unremarkable. Liver is enlarged measuring 19.9 c m with diffuse increased hepatic echotexture. Layering sludge within the gallbladder. No wall thickening. No pericholecystic fluid. Sonographic Morales's sign is negative. Common bile duct is normal measuring 4 mm. Right kidney measures 10.7 x 4.4 x 5.5 cm without mass or hydronephrosis. 6 mm calcification right kidney. Impression: 1. Hepatomegaly with diffuse hepatic steatosis. 2. Gallbladder sludge without cholecystitis. 3. Nonobstructive 6 mm renal calculus.
[2019-04-16 14:57] LABS: Bilirubin 1+ (Negative); Blood, Urine Negative (Negative); Clarity Clear (Clear); Glucose, Urine (Dipstick) Normal (Negative); Leukocyte Negative Leu/uL (Negative); Nitrite Negative (Negative); Protein, Urine (Dipstick) 20 mg/dL (Neg-Trace); Urobilinogen Greater than 12 mg/dL (Less than 2)
[2019-04-16] MEDS ORDERED: Calcium Carbonate 500 MG ChewTAB PO PRN (17:04)
--- NOTE | 2019-04-16 17:24 | PDOC.HHP ---
Hospitalist HPI - History of Present Illness Hypotension History of Present Illness: Mr. Carmona is a 68-year-old gentleman with past medical history of depression, neuropathy, who presents to the emergency room with hypotension. He reportedly went to see a milk runner today because he was experiencing shortness of breath and weakness and was found to be hypotensive with blood pressure of 60/ 40. He was brought in by EMS. When inquiring about this, he states for the past few weeks he has been feeling weak, has had nausea, as well as decreased appetite. He does not endorse any weight loss. He does report vomiting frequently for the past couple of weeks at least once every morning. States the vomitus is mucus colored, nonbloody, nonbilious. Additionally, his hemoglobin was found to be 6 on admission to the emergency room. At this time he does not endorse any melena or hematochezia or hematemesis. He reportedly drinks several martinis a day and has been doing that for many years. He has no formal diagnosis of cirrhosis but an ultrasound abdomen obtained on this visit demonstrates hepatic steaotsis and gallbladder sludge. He reportedly had a colonoscopy 6 years ago and it was normal. He denies other symptoms at this time including fever, chills, dysuria, diarrhea, headache or other associated symptoms. ED Course: . Hospitalist ROS - Review of Systems Constitutional: reports: malaise. denies: fever, chills, sweats, weakness, other Eyes: denies: pain, vision change, conjunctivae inflammation, eyelid inflammation, redness, other ENT: denies: ear pain, ear discharge, nose pain, nose discharge, nose congestion , mouth pain, mouth swelling, throat pain, throat swelling, other Respiratory: denies: cough, dry, shortness of breath, hemoptysis, SOB with excertion, pleuritic pain, sputum, wheezing, other Cardiovascular: denies: chest pain, palpitations, orthopnea, paroxysmal noc. dyspnea, edema, light headedness, other Gastrointestinal: reports: nausea, vomiting. denies: abdominal pain, diarrhea, constipation, melena, hematochezia, other Genitourinary: denies: dysuria, frequency, incontinence, hematuria, retention, other Musculoskeletal: denies: neck pain, shoulder pain, arm pain, back pain, hand pain, leg pain, foot pain, other Skin: denies: rash, lesions, kishan, bruising, other Neurological: reports: weakness. denies: numbness, incoordination, change in speech, confusion, seizures, other - Medication Medications: busPIRone TABLET : Strength - 5 mg : ORAL Patient Dose: Unknown. gabapentin CAPSULE : Strength - 300 mg : ORAL Patient Dose: 3 times a day. Hospitalist History - Past Medical History Source: patient Cardiac: reports: no pertinent history Pulmonary: reports: no pertinent history RN REVIEW: reports: no pertinent history Gastrointestinal: reports: no pertinent history Heme/Onc: reports: Anemia NOS Hepatobiliary: reports: no pertinent history Psych: reports: no pertinent history Musculoskeletal: reports: no pertinent history Rheumatologic: reports: no pertinent history Infectious Disease: reports: no pertinent history ENT: reports: no pertinent history Renal/: reports: no pertinent history Endocrine: reports: no pertinent history Dermatology: reports: no pertinent history - Past Surgical History Past Surgical History: reports: Other (Lithotripsy) - Family History Family History: reports: thyroid disfunction - Social History Smoking Status: Current every day smoker Tobacco Type: cigarettes (1 cig a day) Alcohol: reports: Heavy Drugs: reports: none Living Situation: Alone Activity level: independent ambulation - Exam General Appearance: NAD, awake alert, ill appearing Eye: PERRL, scleral icterus Eye - other findings: conjunctival pallor ENT: normocephalic atraumatic, no oropharyngeal lesions, moist mucosa Neck: supple, symmetric, no JVD, no thyromegaly, no lymphadenopathy, no carotid bruit Heart: RRR, no murmur, no gallops, no rubs, normal peripheral pulses Respiratory: CTAB, no wheezes, no rales, no ronchi, normal chest expansion, no tachypnea, normal percussion Gastrointestinal: soft, non-tender, non-distended, normal bowel sounds, no palpable masses, no hepatomegaly, no splenomegaly, no bruit Extremities: no cyanosis, no clubbing, no edema Skin: normal turgor, no lesions Skin - other findings: jaundice appearing Neurological: cranial nerve grossly intact, normal sensation to touch, no weakness, no focal deficits, no new deficit Musculoskeletal: normal tone, normal strength, no muscle wasting Psychiatric: normal affect, normal behavior, A&O x 3 Hospitalist Results - Labs Result Diagrams: 04/16/19 20:16 04/16/19 12:23 Lab results: WBC 15.3 thou/uL (4.8-10.8) H 04/16/19 12:23 Hgb 6.0 g/dL (14.0-18.0) L 04/16/19 12:23 Hct 18.0 % (42.0-52.0) L 04/16/19 12:23 MCV 101.0 fL (78.0-98.0) H 04/16/19 12:23 Plt Count 349 thou/uL (130-400) 04/16/19 12:23 Sodium 129 mmol/L (136-145) L 04/16/19 12:23 Potassium 3.5 mmol/L (3.5-5.1) 04/16/19 12:23 Chloride 93 mmol/L (98-107) L 04/16/19 12:23 Carbon Dioxide 21 mmol/L (23-31) L 04/16/19 12:23 BUN 13 mg/dL (8.4-25.7) 04/16/19 12:23 Creatinine 0.65 mg/dL (0.7-1.3) L 04/16/19 12:23 Glucose 143 mg/dL (80-115) H 04/16/19 12:23 Calcium 6.9 mg/dL (7.8-10.44) L 04/16/19 12:23 Total Bilirubin 3.3 mg/dL (0.2-1.2) H 04/16/19 12:23 AST 62 U/L (5-34) H 04/16/19 12:23 ALT 16 U/L (8-55) 04/16/19 12:23 Alkaline Phosphatase 357 U/L (40-110) H 04/16/19 12:23 Troponin I Less than 0.010 ng/mL (< 0.028) 04/16/19 12:23 B-Natriuretic Peptide 123.2 pg/mL (0-100) H 04/16/19 12:23 Serum Total Protein 6.6 g/dL (5.8-8.1) 04/16/19 12:23 Albumin 2.4 g/dL (3.4-4.8) L 04/16/19 12:23 Lipase Less than 4 U/L (8-78) L 04/16/19 12:23 Urine Ketones Negative mg/dL (Negative) 04/16/19 14:45 Urine Blood Negative (Negative) 04/16/19 14:45 Urine Nitrite Negative (Negative) 04/16/19 14:45 Ur Leukocyte Esterase Negative Valerie/uL (Negative) 04/16/19 14:45 - EKG Interpretation EK lead EKG interpreted by Emergency Department Physician at time of study, 12 lead EKG shows, sinus arrhythmia, Rate (beats per minute): 91, with premature atrial complexes, Conduction normal, ST segments normal, T waves normal, Howard normal, - Radiology Interpretation US - abdomen Status: report reviewed by me Hospitalist H&P A/P - Problem (1) Symptomatic anemia Code(s): D64.9 - ANEMIA, UNSPECIFIED Status: Acute (2) Macrocytic anemia Code(s): D53.9 - NUTRITIONAL ANEMIA, UNSPECIFIED Status: Acute (3) Hyponatremia Code(s): E87.1 - HYPO-OSMOLALITY AND HYPONATREMIA Status: Acute (4) Leukocytosis Code(s): D72.829 - ELEVATED WHITE BLOOD CELL COUNT, UNSPECIFIED Status: Acute (5) Elevated bilirubin Code(s): R17 - UNSPECIFIED JAUNDICE Status: Acute (6) Hepatic steatosis Code(s): K76.0 - FATTY (CHANGE OF) LIVER, NOT ELSEWHERE CLASSIFIED Status: Acute (7) Alcoholism Code(s): F10.20 - ALCOHOL DEPENDENCE, UNCOMPLICATED Status: Acute (8) Neuropathy Code(s): G62.9 - POLYNEUROPATHY, UNSPECIFIED Status: Acute - Plan Plan: Admit to inpatient telemetry for monitoring of symptomatic anemia/hypotension. Transfusion of 2 units PRBCs in the ED Monitor Hb in the AM We will obtain a CT abdomen and pelvis with contrast to look for any potential neoplastic process that could explain his elevated bilirubin and biochemical abnormalities Work-up of anemia including folate, B12, reticulocyte count, and peripheral smear Work-up of hepatic steatosis which is likely induced by alcoholism including hepatitis panel and GGT levels Continue gentle hydration at NS at 70 mL/h DVT prophylaxis: SCDs CODE STATUS: Full code ACP: Surrogate decision maker is his sister who is also the POA her name is Ira Huizar Disposition: Evaluation and treatment of symptomatic anemia. Further work-up into hepatic steatosis.
[2019-04-16] MEDS ORDERED: Ondansetron PF 4 MG/2 ML Vial ONE (19:01)
[2019-04-16 20:27] LABS: Reticulocyte Count 2.2 % (0.5-1.5)
[2019-04-16 20:30] LABS: Hemoglobin 5.4 g/dL (14.0-18.0); Mean Corpuscular Hemoglobin 35.4 pg (27.0-31.0); Mean Platelet Volume 7.6 fL (7.4-10.4); Platelet Count 335 thou/uL (130-400); RBC Distribution Width 21.1 % (11.5-14.5); Red Blood Cell (RBC) Count 1.54 mill/uL (4.70-6.10); White Blood Cell (WBC) Count 14.6 thou/uL (4.8-10.8)
[2019-04-16 20:42] LABS: Hypochromia SLIGHT = 6-15 cells (100X) (0-5/hpf); Lymphocytes 10 % (21-51); MDiff Complete? YES; Monocytes 6 % (0-10); Neutrophil 83 % (42-75); Platelet Morphology Comment Appears Adequate; Target Cells MODERATE= 6-15 cells (100X) (0-1/hpf)
[2019-04-16 21:13] LABS: Vitamin B12 605 pg/mL (211-911)
[2019-04-16 23:13] LABS: Hep A IgM AB Non-Reactive (NonReactive); Hep A IgM S/CO 0.11 S/CO (0-0.79); Hep B Surf Ag Non-Reactive S/CO (NonReactive); Hep C IgG Ab Non-Reactive (NonReactive); Hep C Index 0.22 S/CO (0-0.79); Hepatitis B Core IgM Abs Non-Reactive (NonReactive)
[2019-04-17 02:26] LABS: #Lymphocytes 1.8 thou/uL (1.20-3.40); #Monocytes 0.9 thou/uL (0.11-0.59); #Neutrophils 10.8 thou/uL (1.40-6.50); %Basophils 0.2 % (0.0-1.0); %Eosinophils 0.1 % (0.0-10.0); %Lymphocytes 13.2 % (21.0-51.0); %Monocytes 6.9 % (0.0-10.0); %Neutrophils 79.6 % (42.0-75.0); Hemoglobin 6.5 g/dL (14.0-18.0); Mean Corpuscular HGB CONC 34.5 g/dL (32.0-36.0); Mean Corpuscular Hemoglobin 33.8 pg (27.0-31.0); Mean Corpuscular Volume 97.8 fL (78.0-98.0); Mean Platelet Volume 7.6 fL (7.4-10.4); Platelet Count 317 thou/uL (130-400); Red Blood Cell (RBC) Count 1.92 mill/uL (4.70-6.10); White Blood Cell (WBC) Count 13.6 thou/uL (4.8-10.8)
[2019-04-17 02:54] LABS: ALT (SGPT) 12 U/L (8-55); AST (SGOT) 55 U/L (5-34); Albumin 2.1 g/dL (3.4-4.8); Alkaline Phosphatase 297 U/L (40-110); Anion Gap 15 mmol/L (10-20); BUN (Urea Nitrogen) 12 mg/dL (8.4-25.7); Bilirubin, Total 4.4 mg/dL (0.2-1.2); Calc. Creatinine Clearance 125 mL/min (70-130); Calcium 6.7 mg/dL (7.8-10.44); Carbon Dioxide 22 mmol/L (23-31); Chloride 96 mmol/L (98-107); Estimated GFR-MDRD Greater than 90; Globulin 3.6 g/dL (2.4-3.5); Glucose 110 mg/dL (80-115); Potassium 3.2 mmol/L (3.5-5.1); Protein, Total 5.7 g/dL (5.8-8.1); Sodium 130 mmol/L (136-145)
[2019-04-17] MEDS: Sodium Chloride 0.9% 1,000 ML IV SCH ×3 (03:50→22:00)
[2019-04-17] MEDS: Ondansetron PF 4 MG/2 ML Vial IVP PRN ×2 (04:02→10:08)
--- NOTE | 2019-04-17 08:03 | CT ---
PRELIMINARY REPORT/[facility]/EMERGENCY AFTER HOURS PROCEDURE: EXAM: CT Abdomen and Pelvis with Intravenous Contrast CLINICAL HISTORY: M68 presents to ED with c/o hypotension onset " a couple of years ago". Pt reports this last year it has progressed. PT reports nausea and vomiting. Pt reports he had a syncope episode last night. Pt al so states that he has not eaten. Denies chest pain, abd pain Pt was sent by plastic finisher to be seen. SURGICAL HX: CATARACTS JULY 2018; BENIGN LIPOMA IN GROIN 1994; KIDNEY STONES LITHOTRIPSY TECHNIQUE: Axial computed tomography images of the abdomen and pelvis with intravenous contrast. CONTRAST: With; isovue 370, 90ml COMPARISON: None provided. FINDINGS: LUNG BASES: Bibasilar atelectasis and/or pleural-parenchymal scarring. LIVER: Pronounced diffuse fatty infiltration of the liver. GALLBLADDER AND BILE DUCTS: Unremarkable. No calcified stone. No ductal dilation. PANCREAS: Unremarkable. SPLEEN: Unremarkable. ADRENAL GLANDS: Unremarkable. KIDNEYS, URETERS, AND BLADDER: Nonobstructing calculus in the mid right kidney. Bilateral renal paren chymal hypodensities most consistent with cysts. STOMACH AND BOWEL: Mild colonic diverticulosis. No evidence of diverticulitis. APPENDIX: No CT evidence for appendicitis. PERITONEUM: No free fluid. No free air. REPRODUCTIVE: The prostate is mildly enlarged and nodular. This is nonspecific but statistically most likely reflects benign prostatic hypertrophy. Recommend correlation with PSA. VASCULATURE: No aortic aneurysm. BONES: L1 inferior endplate compression deformity of uncertain acuity. Old left rib fracture deformities. ABDOMINAL WALL AND SOFT TISSUES: Diffuse soft tissue swelling in the visualized portion of the left u pper extremity with a few bubbles of soft tissue gas, possibly reflecting trauma or cellulitis. Corre late clinically. IMPRESSION: 1. Diffuse soft tissue swelling in the visualized portion of the left upper extremity with a few bubb les of soft tissue gas, possibly reflecting trauma or cellulitis. Correlate clinically. 2. Pronounced diffuse fatty infiltration of the liver. 3. Nonobstructing calculus in the mid right kidney. 4. Mild colonic diverticulosis. No evidence of diverticulitis. 5. The prostate is mildly enlarged and nodular. This is nonspecific but statistically most likely ref lects benign prostatic hypertrophy. Recommend correlation with PSA. 6. L1 inferior endplate compression deformity of uncertain acuity. ELECTRONICALLY SIGNED BY: Mickey Avalos MD Apr 17, 2019 2:19:04 AM MAINTENANCE COORDINATOR This report is intended for review by the ordering physician only, in accordance of law. If you recei ve this report in error, please call [facility] at [phone]. FINAL REPORT EMERGENCY AFTER HOURS CT ABDOMEN AND PELVIS: FINDINGS/IMPRESSION: I agree with the findings and impression given in the preliminary report per [facility] physici an. 1. Severe fatty infiltration of the liver. 2. Bilateral renal cysts. 3. Nonobstructing renal calcifications. 4. Diverticulosis. 5. L1 compression fracture is remote and was seen on the prior lumbar spine series on 03/12/2019.
[2019-04-17] MEDS: Thiamine 100 MG TAB PO SCH (10:09)
[2019-04-17] MEDS: Folic Acid 1 MG TAB PO SCH (10:09)
--- NOTE | 2019-04-17 12:48 | CON ---
DATE OF CONSULTATION: 04/17/2019 CHIEF COMPLAINT: Weakness and not eating. HISTORY OF PRESENT ILLNESS: Mr. Carmona is a 68-year-old man, who a couple of weeks ago just quit eating and he would vomit mucus in the mornings. He has had no appetite other than for vodka, which he has been drinking a pint to a liter a day. He has been weak, and he has fallen at home a couple of times. He has orthostatics symptoms. He has been using a walker at home to get around. He has had no diarrhea or blood in the stool or constipation. He has brown normal stools. He has had no abdominal pain with this. He presented to the director of physical education's office yesterday, but was found to have hypotension and was sent on to the emergency room for more immediate care. He states that he had an EGD and a colonoscopy within the last 5 years at [facility], which are normal per his report. He is alert and oriented. He, however, is having to have his diaper changed by nursing in the hospital here because he has been weak to get up out of bed and walk to the bathroom. He was found to have elevated liver tests and severe anemia. He is requiring blood transfusion, and GI was consulted to evaluate the severe anemia and elevated liver tests. PAST MEDICAL HISTORY: Hypertension, depression and anxiety, neuropathy, kidney stones, and alcohol abuse. PAST SURGICAL HISTORY: Kidney stone surgery, lipoma removed, cataract surgery, and sinus surgery. SOCIAL HISTORY: He smokes 1 cigarette per day. He drinks a pint to a liter a day of vodka. No drugs. FAMILY HISTORY: Negative for GI malignancy. ALLERGIES: NO KNOWN DRUG ALLERGIES. MEDICATIONS: Medications prior to admission: 1. Buspirone. 2. Gabapentin. He was started on Nexium just a couple of days ago. REVIEW OF SYSTEMS: Negative x10 systems reviewed except as stated in the history of present illness. PHYSICAL EXAMINATION: VITAL SIGNS: Temperature 98.4, blood pressure 99/55, pulse 89. GENERAL: He is in no acute distress. Alert and oriented x3. HEENT: Eyes have no scleral icterus. Oropharynx is clear without lesions. LYMPHATICS: No cervical or supraclavicular lymphadenopathy. LUNGS: Clear to auscultation bilaterally. HEART: Regular rate and rhythm without murmur. ABDOMEN: Soft. He has mild tenderness diffusely without guarding. His bowel sounds are present. EXTREMITIES: He has 1+ pitting lower extremity edema. NEUROLOGIC: Cranial nerves are grossly intact. LABORATORY DATA: White blood cell count 13.6; hemoglobin was 5.4 last night, 6.5 today; platelets 317. He received 2 units transfusion last night and 1 unit this morning after the blood count from today. His MCV was 101. Reticulocyte count 2.2. INR 1.4. Sodium 130, potassium 3.2, chloride 96, CO2 of 22, BUN 12, creatinine 0.56. Bilirubin 4.4, GGT 871, AST 55, ALT 12, alkaline phosphatase 297, albumin 2.1. Lipase 4. B12 of 605. Folate 1.8. IMAGING STUDIES: He had a CT scan of the abdomen and pelvis, which showed fatty liver. The prostate was noted to be enlarged and nodular. There was also soft density swelling in the left upper extremity. Abdominal ultrasound revealed sludge in the gallbladder and a nonobstructive 6 mm renal calculus on the right. IMPRESSION: 1. Severe anemia. He has had no overt gastrointestinal bleeding. He has brown stool by rectal exam now. He could have chronic gastrointestinal blood loss or alternative source for his anemia with bone marrow suppression from the alcohol versus other source. He has had no appetite and is vomiting frequently. We will rule out a peptic ulcer or gastric neoplastic process. 2. 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 His INR is elevated at 1.4. His albumin is low at 2.1. Bilirubin is elevated at 4.4. He is drinking up to a liter of vodka daily. Viral hepatitis screen is negative. He is hyponatremic, which may be a negative prognostic sign. 3. Alcohol abuse. 4. Protein malnutrition and folate deficiency. He has been eating minimally and drinking heavily. RECOMMENDATIONS: 1. Proton-pump inhibitor. 2. We will plan for upper endoscopy tomorrow. 3. Transfusion. 4. Check iron studies. 5. Obtain EGD and colonoscopy reports from [place] from in the last 5 years. 6. Monitor for DTs. 7. Thiamine supplementation and folate. 8. Alcohol cessation. Job ID: [id number]
[2019-04-17] MEDS: Gabapentin 300 MG CAP PO SCH ×2 (14:12→20:41)
[2019-04-17 16:35] LABS: Iron 119 ug/dL (65-175); Iron Binding Capacity, Total 108 mcg/dL (261-462)
--- NOTE | 2019-04-17 17:22 | PDOC.HOSPP ---
- Subjective Encounter Date: 04/17/19 Encounter Time: 17:21 Subjective: Still feels weak this AM. Received unit of prbc overnight. No complaints of abdominal pain at this time. - Objective Vital Signs & Weight: Vital Signs (12 hours) Temp Pulse Pulse Resp BP BP Pulse Ox 04/17/19 15:25 98.9 F 82 14 91/50 L 98 04/17/19 11:20 98.4 F 89 18 99/55 L 100 04/17/19 11:17 98.4 F 89 18 99/55 L 100 04/17/19 07:52 98.4 F 85 18 92/51 L 100 04/17/19 07:47 72 92/51 L 04/17/19 07:43 98.6 F 92 18 88/54 L 95 04/17/19 07:37 98.6 F 92 18 88/54 L 93 L Weight Admit Weight 154 lb Weight 154 lb I&O: 04/16/19 04/17/19 04/18/19 06:59 06:59 06:59 Intake Total 0 800 Output Total 400 Balance 0 400 Result Diagrams: 04/17/19 02:15 04/17/19 02:15 Hospitalist ROS - Review of Systems All other systems reviewed; all pertinent +/- noted in HPI/Subj - Medication Medications: Active Medications Generic Name Dose Route Start Last Admin Trade Name Freq PRN Reason Stop Dose Admin Folic Acid 1 mg 04/17/19 09:00 04/17/19 10:09 Folvite PO 1 mg DAILY DEVANG Administration Gabapentin 300 mg 04/17/19 15:00 04/17/19 14:12 Neurontin PO 300 mg TID DEVANG Administration Sodium Chloride 1,000 mls @ 70 mls/hr 04/16/19 17:15 04/17/19 07:35 Normal Saline 0.9% IV 1,000 mls .[id number] DEVANG Administration Ondansetron HCl 4 mg 04/16/19 17:04 04/17/19 10:08 Zofran IVP 4 mg Q6H PRN Administration Nausea/Vomiting Thiamine HCl 100 mg 04/17/19 09:00 04/17/19 10:09 Thiamine PO 100 mg DAILY DEVANG Administration - Exam General Appearance: NAD, awake alert, ill appearing Eye: PERRL, scleral icterus ENT: normocephalic atraumatic, no oropharyngeal lesions, moist mucosa Neck: supple, symmetric, no JVD, no thyromegaly, no lymphadenopathy, no carotid bruit Heart: RRR, no murmur, no gallops, no rubs, normal peripheral pulses Respiratory: CTAB, no wheezes, no rales, no ronchi, normal chest expansion, no tachypnea, normal percussion Gastrointestinal: soft, non-tender, non-distended, normal bowel sounds, no palpable masses, no hepatomegaly, no splenomegaly, no bruit Extremities: no cyanosis, no clubbing, no edema Skin: normal turgor, no lesions, no rashes Neurological: cranial nerve grossly intact, normal sensation to touch, no weakness, no focal deficits, no new deficit Musculoskeletal: normal tone, normal strength, no muscle wasting Psychiatric: normal affect, normal behavior, A&O x 3 Hosp A/P (1) Symptomatic anemia Code(s): D64.9 - ANEMIA, UNSPECIFIED Status: Acute (2) Macrocytic anemia Code(s): D53.9 - NUTRITIONAL ANEMIA, UNSPECIFIED Status: Acute (3) Hyponatremia Code(s): E87.1 - HYPO-OSMOLALITY AND HYPONATREMIA Status: Acute (4) Leukocytosis Code(s): D72.829 - ELEVATED WHITE BLOOD CELL COUNT, UNSPECIFIED Status: Acute (5) Elevated bilirubin Code(s): R17 - UNSPECIFIED JAUNDICE Status: Acute (6) Hepatic steatosis Code(s): K76.0 - FATTY (CHANGE OF) LIVER, NOT ELSEWHERE CLASSIFIED Status: Acute (7) Alcoholism Code(s): F10.20 - ALCOHOL DEPENDENCE, UNCOMPLICATED Status: Acute (8) Neuropathy Code(s): G62.9 - POLYNEUROPATHY, UNSPECIFIED Status: Acute - Plan Appreciate GI reccs Alcoholic hepatitis, continue supportive transfusion and care, no need for steroid therapy at this point Continue folic acid and thiamine Replete electrolytes NS@ 70ml/hr for maintenance fluids Hepatitis panel unremarkable Disposition: To undergo EGD with GI tomorrow.
[2019-04-18 05:01] LABS: Anion Gap 12 mmol/L (10-20); BUN (Urea Nitrogen) 11 mg/dL (8.4-25.7); Calc. Creatinine Clearance 137 mL/min (70-130); Calcium 6.8 mg/dL (7.8-10.44); Carbon Dioxide 25 mmol/L (23-31); Chloride 99 mmol/L (98-107); Estimated GFR-MDRD Greater than 90; Glucose 106 mg/dL (80-115); Sodium 132 mmol/L (136-145)
[2019-04-18 05:39] LABS: #Basophils 0.1 thou/uL (0.0-0.2); #Eosinphils 0.1 thou/uL (0.0-0.7); #Monocytes 1.1 thou/uL (0.11-0.59); #Neutrophils 9.5 thou/uL (1.40-6.50); %Basophils 0.6 % (0.0-1.0); %Eosinophils 0.7 % (0.0-10.0); %Lymphocytes 15.5 % (21.0-51.0); %Monocytes 8.7 % (0.0-10.0); %Neutrophils 74.5 % (42.0-75.0); Hemoglobin 7.6 g/dL (14.0-18.0); Mean Corpuscular HGB CONC 34.2 g/dL (32.0-36.0); Mean Corpuscular Hemoglobin 31.9 pg (27.0-31.0); Mean Corpuscular Volume 93.2 fL (78.0-98.0); Mean Platelet Volume 7.6 fL (7.4-10.4); Platelet Count 338 thou/uL (130-400); RBC Distribution Width 20.9 % (11.5-14.5); Red Blood Cell (RBC) Count 2.39 mill/uL (4.70-6.10); White Blood Cell (WBC) Count 12.8 thou/uL (4.8-10.8)
[2019-04-18 06:17] LABS: Anisocytosis SLIGHT = 6-15 cells (100X) (0-5/hpf); MDiff Complete? YES; Target Cells SLIGHT = 2-5 cells (100X) (0-1/hpf)
--- NOTE | 2019-04-18 09:53 | OP ---
DATE OF PROCEDURE: 04/18/2019 PROCEDURE PERFORMED: Esophagogastroduodenoscopy. PREOPERATIVE DIAGNOSES: 1. Anorexia. 2. Loss of appetite. 3. Anemia. DESCRIPTION OF PROCEDURE: An informed consent was obtained from the patient. He was sedated with total intravenous anesthesia. The bite block was placed and the endoscope was advanced easily to the second portion of the duodenum and retroflexion was performed in the stomach. The esophagus was normal. The GE junction was normal. The stomach was normal including retroflexed views. The pylorus and first and second portions of the duodenum were normal. IMPRESSION: 1. Normal esophagogastroduodenoscopy. 2. Anemia, loss of appetite, anorexia, and protein malnutrition, appeared to be secondary to the alcohol abuse with a liter of vodka per day. His ferritin and iron saturation are elevated. RECOMMENDATIONS: 1. Alcohol cessation. 2. Check hemochromatosis gene PCR. Job ID: [id number]
[2019-04-18] MEDS: Gabapentin 300 MG CAP PO SCH ×3 (10:58→19:58)
[2019-04-18] MEDS: Folic Acid 1 MG TAB PO SCH (10:59)
--- NOTE | 2019-04-18 11:41 | PQF ---
Date: 04-18-19 ATTN: DR. TIRSO SORTO / DR. GENNY RANDOLPH Please exercise your independent, professional judgment in responding to the clarification form. Clinical indicators are provided on the bottom of this form for your review Please check appropriate box(s): [ ] Protein Calorie Malnutrition: [ ] Mild [ x] Moderate [ ] Severe [ ] Other Malnutrition (please specify) __ [ ] Other diagnosis [ ] Unable to determine In addition, please specify: Present on Admission (POA): [x ] Yes [ ] No [ ] Unable to determine CLINICAL INDICATORS - SIGNS / SYMPTOMS / LABS / RESULTS AND LOCATION IN MR: *H&P 04-16-19: FOUND TO BE HYPOTENSIVE WITH BLOOD PRESSURE OF 60/40, DECREASED APPETITE, HE DOES REPORT VOMITING FREQUENTLY FOR THE PAST COUPLE OF WEEKS AT LEAST ONCE EVERY MORNING. *CONSULT NOTE DR. JACKSON 04-17-19: WEAKNESS AND NOT EATING, JUST QUIT EATING, HE HAD NO APPETITE OTHER THAN FOR VODKA, PROTEIN MALNUTRITION AND FOLATE DEFICIENCY. *OPERATIVE NOTE 04-18-19: ANOREXIA, LOSS OF APPETITE, ANEMIA, PROTEIN MALNUTRITION, APPEARED TO BE SECONDARY TO THE ALCOHOL ABUSE WITH A LITER OF VODKA PER DAY. *NUTRITION CONSULT 04-17-19: Patient states he quit eating 2-3 weeks, had absolutely no appetite and was vomiting every morning. alcoholism, lack of appetite, patient report of essentially no PO intake other than vodka x2-3 weeks RISK FACTORS / RESULTS AND LOCATION IN MR: *NUTRITION CONSULT 04-17-19: Patient states he quit eating 2-3 weeks, had absolutely no appetite and was vomiting every morning. alcoholism, lack of appetite, patient report of essentially no PO intake other than vodka x2-3 weeks TREATMENT / RESULTS AND LOCATION IN MR: *NUTRITION CONSULT 04-17-19: 1. Recommend a Regular diet 2. Recommend Ensure Enlive TID to aid with intake 3. Recommend changing IVF to PPN @ 70 mL/hr 4. Patient is at risk for refeeding syndrome, replace K+, Mg, and Phos PRN Moderate Malnutrition (in acute illness) Energy Intake: <75% of estimated energy requirement for > 7 days Weight Loss: 1-2%/1 week; 5%/ 1 month; 7.5%/3 months Other: mild body fat loss; mild muscle mass loss; mild fluid accumulation; Severe Malnutrition (in acute illness) Energy Intake: < 50% of estimated energy requirement for > 5 days Weight Loss: >1-2%/1 week; >5%/1 month; >7.5%/3 months Other: moderate body fat loss; moderate muscle mass loss; moderate- severe fluid accumulation; measurably reduced hand twister strength Moderate Malnutrition (in chronic illness) Energy Intake: <75% of estimated energy requirement for >1 month Weight Loss: 5%/1 month; 7.5%/3 months; 10%/6 months; 20%/1 year Other: mild body fat loss; mild muscle mass loss; mild fluid accumulation Severe Malnutrition (in chronic illness) Energy Intake: <75% of estimated energy requirement for >1 month Weight Loss: >5%/1 month; >7.5%/3 months; >10%/6 months; >20%/1 year Other: severe body fat loss; severe muscle mass loss; severe fluid accumulation ; measurably reduced hand twister strength (This form is maintained as a part of the permanent medical record) 2014 [employer] All Rights Reserved [email or web address] [email or web address] Office: [phone] [email or web address] De Jesus
[2019-04-18] MEDS ORDERED: PROPOFOL 200 MG/20 ML VIAL ONE (11:57)
[2019-04-18] MEDS: Sodium Chloride 0.9% 1,000 ML IV SCH ×2 (12:37→17:19)
[2019-04-18] MEDS: Ondansetron PF 4 MG/2 ML Vial IVP PRN ×2 (13:08→20:28)
[2019-04-18 14:29] LABS: Bacteria/HPF None Seen HPF (None Seen); Bilirubin 1+ (Negative); Blood, Urine Negative (Negative); Clarity Clear (Clear); Glucose, Urine (Dipstick) Normal (Negative); Leukocyte Negative Leu/uL (Negative); Nitrite Negative (Negative); Protein, Urine (Dipstick) 20 mg/dL (Neg-Trace); RBC/HPF 0-3 HPF (0-3); Squamous Epithelial 0-3 HPF (0-3); Urobilinogen Greater than 12 mg/dL (Less than 2); WBC/HPF 0-3 HPF (0-3)
[2019-04-18 14:31] LABS: Urine Culture Reflex No No
--- NOTE | 2019-04-18 17:45 | PDOC.HOSPP ---
- Subjective Encounter Date: 04/18/19 Encounter Time: 15:00 Subjective: pt up in bed no complains - Objective Vital Signs & Weight: Vital Signs (12 hours) Temp Pulse Pulse Pulse Pulse Pulse Pulse 04/18/19 15:45 94 92 99 109 H 98 04/18/19 15:43 98.5 F 94 04/18/19 11:54 98.6 F 98 04/18/19 10:21 97.2 F L 89 04/18/19 07:46 98.4 F 88 Resp BP BP BP BP BP BP 04/18/19 15:45 98/56 L 85/54 L 92/54 L 74/45 L 98/55 L 04/18/19 15:43 14 98/56 L 04/18/19 11:54 16 113/55 L 04/18/19 10:21 18 100/52 L 04/18/19 07:46 14 97/56 L Pulse Ox Pulse Ox 04/18/19 15:45 94 L 04/18/19 15:43 95 04/18/19 11:54 94 L 04/18/19 10:21 96 04/18/19 07:46 94 L Weight Admit Weight 154 lb Weight 154 lb I&O: 04/17/19 04/18/19 04/19/19 06:59 06:59 06:59 Intake Total 0 3470 Output Total 1100 Balance 0 2370 Result Diagrams: 04/18/19 04:17 04/18/19 04:17 Hospitalist ROS - Review of Systems Respiratory: denies: cough, dry, shortness of breath, hemoptysis, SOB with excertion, pleuritic pain, sputum, wheezing, other Cardiovascular: denies: chest pain, palpitations, orthopnea, paroxysmal noc. dyspnea, edema, light headedness, other Gastrointestinal: denies: nausea, vomiting, abdominal pain, diarrhea, constipation, melena, hematochezia, other - Medication Medications: Active Medications Generic Name Dose Route Start Last Admin Trade Name Freq PRN Reason Stop Dose Admin Folic Acid 1 mg 04/17/19 09:00 04/18/19 10:59 Folvite PO 1 mg DAILY DEVANG Administration Gabapentin 300 mg 04/17/19 15:00 04/18/19 15:47 Neurontin PO 300 mg TID DEVANG Administration Sodium Chloride 1,000 mls @ 70 mls/hr 04/16/19 17:15 04/18/19 17:19 Normal Saline 0.9% IV 1,000 mls .[id number] DEVANG Administration Ondansetron HCl 4 mg 04/16/19 17:04 04/18/19 13:08 Zofran IVP 4 mg Q6H PRN Administration Nausea/Vomiting Thiamine HCl 100 mg 04/17/19 09:00 04/17/19 10:09 Thiamine PO 100 mg DAILY DEVANG Administration - Exam ENT: negative: normocephalic atraumatic, no oropharyngeal lesions, moist mucosa , dry oral mucosa Neck: negative: supple, symmetric, no JVD, no thyromegaly, no lymphadenopathy, no carotid bruit, JVD Heart: negative: RRR, no murmur, no gallops, no rubs, normal peripheral pulses, irregular, diminshed peripheral pulses, murmur present, II/IV, III/IV Skin - other findings: significant brusing to his left arm Hosp A/P - Plan (1) Symptomatic anemia Code(s): D64.9 - ANEMIA, UNSPECIFIED Status: Acute (2) Macrocytic anemia Code(s): D53.9 - NUTRITIONAL ANEMIA, UNSPECIFIED Status: Acute (3) Hyponatremia Code(s): E87.1 - HYPO-OSMOLALITY AND HYPONATREMIA Status: Acute (4) Leukocytosis Code(s): D72.829 - ELEVATED WHITE BLOOD CELL COUNT, UNSPECIFIED Status: Acute (5) Elevated bilirubin Code(s): R17 - UNSPECIFIED JAUNDICE Status: Acute (6) Hepatic steatosis Code(s): K76.0 - FATTY (CHANGE OF) LIVER, NOT ELSEWHERE CLASSIFIED Status: Acute (7) Alcoholism Code(s): F10.20 - ALCOHOL DEPENDENCE, UNCOMPLICATED Status: Acute (8) Neuropathy Code(s): G62.9 - POLYNEUROPATHY, UNSPECIFIED Status: Acute - Plan Appreciate GI reccs Continue folic acid and thiamine Replete electrolytes NS@ 70ml/hr for maintenance fluids Hepatitis panel unremarkable 04/18 pt hypotensive, egd normal. will give one unit of blood. occult blood negative.
[2019-04-18 23:23] LABS: Hemoglobin 7.6 g/dL (14.0-18.0); Platelet Count 331 thou/uL (130-400)
[2019-04-19 04:39] LABS: #Eosinphils 0.1 thou/uL (0.0-0.7); #Lymphocytes 1.8 thou/uL (1.20-3.40); #Monocytes 0.8 thou/uL (0.11-0.59); #Neutrophils 8.1 thou/uL (1.40-6.50); %Basophils 0.4 % (0.0-1.0); %Eosinophils 1.1 % (0.0-10.0); %Lymphocytes 16.3 % (21.0-51.0); %Monocytes 7.4 % (0.0-10.0); %Neutrophils 74.7 % (42.0-75.0); Hemoglobin 7.8 g/dL (14.0-18.0); Mean Corpuscular Hemoglobin 32.2 pg (27.0-31.0); Mean Corpuscular Volume 94.6 fL (78.0-98.0); Mean Platelet Volume 7.2 fL (7.4-10.4); Platelet Count 339 thou/uL (130-400); RBC Distribution Width 21.1 % (11.5-14.5); Red Blood Cell (RBC) Count 2.42 mill/uL (4.70-6.10); White Blood Cell (WBC) Count 10.8 thou/uL (4.8-10.8)
[2019-04-19 05:02] LABS: ALT (SGPT) 12 U/L (8-55); AST (SGOT) 65 U/L (5-34); Albumin 2.1 g/dL (3.4-4.8); Alkaline Phosphatase 283 U/L (40-110); Anion Gap 13 mmol/L (10-20); BUN (Urea Nitrogen) 9 mg/dL (8.4-25.7); Bilirubin, Total 2.2 mg/dL (0.2-1.2); Calc. Creatinine Clearance 120 mL/min (70-130); Calcium 6.6 mg/dL (7.8-10.44); Carbon Dioxide 23 mmol/L (23-31); Chloride 100 mmol/L (98-107); Estimated GFR-MDRD Greater than 90; Globulin 3.5 g/dL (2.4-3.5); Glucose 105 mg/dL (80-115); Potassium 3.3 mmol/L (3.5-5.1); Protein, Total 5.6 g/dL (5.8-8.1); Sodium 133 mmol/L (136-145)
[2019-04-19] MEDS ORDERED: Potassium Chloride 20 MEQ TAB PO SCH (08:30)
[2019-04-19] MEDS: Thiamine 100 MG TAB PO SCH (08:58)
[2019-04-19] MEDS: Folic Acid 1 MG TAB PO SCH (08:58)
[2019-04-19] MEDS: Gabapentin 300 MG CAP PO SCH ×3 (08:58→21:59)
[2019-04-19] MEDS ORDERED: Magnesium 2 GM/50 ML 2 GM in Premix Bag 1 BAG IVPB SCH (11:45)
[2019-04-19] MEDS: Sodium Chloride 0.9% 1,000 ML IV SCH (12:03)
[2019-04-19] MEDS: Ondansetron PF 4 MG/2 ML Vial IVP PRN (13:08)
--- NOTE | 2019-04-19 14:53 | PRG ---
DATE OF SERVICE: 04/19/2019 SUBJECTIVE: Mr. Carmona is tolerating a solid diet daily. He is able to take a small amount at the time. OBJECTIVE: His abdomen is soft, nontender, and nondistended. Bowel sounds are present. IMPRESSION: 1. Anorexia and protein-calorie malnutrition secondary to alcohol abuse. 2. Anemia with high iron saturation and high ferritin. 3. Esophagogastroduodenoscopy was normal. RECOMMENDATIONS: 1. Alcohol cessation. 2. Advance his diet and oral intake as he tolerates. 3. Antiemetics as needed. 4. I will sign off. Please call if GI can be of assistance. Job ID: [id number]
--- NOTE | 2019-04-19 15:17 | PDOC.HOSPP ---
- Subjective Encounter Date: 04/19/19 Encounter Time: 09:45 Subjective: pt up in chair feels dizzy when he gets up. - Objective Vital Signs & Weight: Vital Signs (12 hours) Temp Pulse Pulse Pulse Pulse Resp BP 04/19/19 11:29 98.8 F 99 16 04/19/19 10:41 92 108 H 92 107/62 04/19/19 07:26 98.9 F 92 16 04/19/19 04:12 99 F 94 17 BP BP BP BP Pulse Ox 04/19/19 11:29 108/64 97 04/19/19 10:41 89/56 L 107/59 L 04/19/19 07:26 111/57 L 95 04/19/19 04:12 105/62 94 L Weight Admit Weight 154 lb Weight 154 lb I&O: 04/18/19 04/19/19 04/20/19 06:59 06:59 06:59 Intake Total 3470 1860 Output Total 1100 675 Balance 2370 1185 Result Diagrams: 04/19/19 04:20 04/19/19 04:20 Hospitalist ROS - Review of Systems Respiratory: denies: cough, dry, shortness of breath, hemoptysis, SOB with excertion, pleuritic pain, sputum, wheezing, other Cardiovascular: reports: light headedness. denies: chest pain, palpitations, orthopnea, paroxysmal noc. dyspnea, edema, other Gastrointestinal: denies: nausea, vomiting, abdominal pain, diarrhea, constipation, melena, hematochezia, other Genitourinary: denies: dysuria, frequency, incontinence, hematuria, retention, other - Medication Medications: Active Medications Generic Name Dose Route Start Last Admin Trade Name Freq PRN Reason Stop Dose Admin Folic Acid 1 mg 04/17/19 09:00 04/19/19 08:58 Folvite PO 1 mg DAILY DEVANG Administration Gabapentin 300 mg 04/17/19 15:00 04/19/19 08:58 Neurontin PO 300 mg TID DEVANG Administration Sodium Chloride 1,000 mls @ 70 mls/hr 04/16/19 17:15 04/19/19 12:03 Normal Saline 0.9% IV 1,000 mls .[id number] DEVANG Administration Ondansetron HCl 4 mg 04/16/19 17:04 04/19/19 13:08 Zofran IVP 4 mg Q6H PRN Administration Nausea/Vomiting Sodium Chloride 10 ml 04/19/19 09:00 04/19/19 08:58 Flush - Normal Saline IVF Not Given Q12HR DEVANG Thiamine HCl 100 mg 04/17/19 09:00 04/19/19 08:58 Thiamine PO 100 mg DAILY DEVANG Administration - Exam Heart: negative: RRR, no murmur, no gallops, no rubs, normal peripheral pulses, irregular, diminshed peripheral pulses, murmur present, II/IV, III/IV Respiratory: negative: CTAB, no wheezes, no rales, no ronchi, normal chest expansion, no tachypnea, normal percussion, rales, rhonchi, tachypneic, wheezes Gastrointestinal: negative: soft, non-tender, non-distended, normal bowel sounds , no palpable masses, no hepatomegaly, no splenomegaly, no bruit, no guarding, no rigidity, tender to palpation, distended, diminished bowl sounds, voluntary guarding Extremities: negative: no cyanosis, no clubbing, no edema, 1+ LE edema, 2+ LE edema, clubbing Hosp A/P - Plan (1) Symptomatic anemia Code(s): D64.9 - ANEMIA, UNSPECIFIED Status: Acute (2) Macrocytic anemia Code(s): D53.9 - NUTRITIONAL ANEMIA, UNSPECIFIED Status: Acute (3) Hyponatremia Code(s): E87.1 - HYPO-OSMOLALITY AND HYPONATREMIA Status: Acute (4) Leukocytosis Code(s): D72.829 - ELEVATED WHITE BLOOD CELL COUNT, UNSPECIFIED Status: Acute (5) Elevated bilirubin Code(s): R17 - UNSPECIFIED JAUNDICE Status: Acute (6) Hepatic steatosis Code(s): K76.0 - FATTY (CHANGE OF) LIVER, NOT ELSEWHERE CLASSIFIED Status: Acute (7) Alcoholism Code(s): F10.20 - ALCOHOL DEPENDENCE, UNCOMPLICATED Status: Acute (8) Neuropathy Code(s): G62.9 - POLYNEUROPATHY, UNSPECIFIED Status: Acute - Plan Appreciate GI reccs Continue folic acid and thiamine Replete electrolytes NS@ 70ml/hr for maintenance fluids Hepatitis panel unremarkable 04/18 pt hypotensive, egd normal. will give one unit of blood. occult blood negative. 2/29 s/p one unit of blood. pt has positive orthostaitc bp. will monitor. He will need some sort of placement.
--- NOTE | 2019-04-20 01:33 | EKG ---
Test Reason : SYNCOPE Blood Pressure : / mmHG Vent. Rate : 091 BPM Atrial Rate : 091 BPM P-R Int : 152 ms QRS Dur : 076 ms QT Int : 316 ms P-R-T Axes : 060 -08 186 degrees QTc Int : 388 ms Sinus rhythm with marked sinus arrhythmia with Premature atrial complexes Inferior infarct , age undetermined Abnormal ECG Confirmed by REYES JOHNSON ([id number]), electronic news gathering editor JOSIAH VINES ([id number]) on 04/20/2019 1:32:38 AM Referred By: Confirmed By:REYES Pretty
[2019-04-20] MEDS: Sodium Chloride 0.9% 1,000 ML IV SCH ×2 (06:03→21:03)
[2019-04-20] MEDS: Gabapentin 300 MG CAP PO SCH ×3 (10:48→20:48)
[2019-04-20] MEDS: Folic Acid 1 MG TAB PO SCH (10:48)
[2019-04-20] MEDS: Thiamine 100 MG TAB PO SCH (10:48)
[2019-04-20 11:46] LABS: Anion Gap 13 mmol/L (10-20); BUN (Urea Nitrogen) 7 mg/dL (8.4-25.7); Calc. Creatinine Clearance 125 mL/min (70-130); Calcium 6.8 mg/dL (7.8-10.44); Carbon Dioxide 21 mmol/L (23-31); Chloride 103 mmol/L (98-107); Estimated GFR-MDRD Greater than 90; Glucose 118 mg/dL (80-115); Magnesium 1.6 mg/dL (1.6-2.6); Potassium 3.4 mmol/L (3.5-5.1); Sodium 134 mmol/L (136-145)
[2019-04-20] MEDS: Ondansetron PF 4 MG/2 ML Vial IVP PRN (14:11)
--- NOTE | 2019-04-20 14:25 | PDOC.HOSPP ---
- Subjective Encounter Date: 04/20/19 Encounter Time: 11:15 Subjective: pt up in bed no complains, feels better than yesterday. - Objective Vital Signs & Weight: Vital Signs (12 hours) Temp Pulse Resp BP BP BP BP 04/20/19 12:58 98.4 F 98 17 110/67 04/20/19 07:45 98.4 F 101 H 18 107/61 95/56 L 110/61 04/20/19 05:28 99.5 F 94 18 106/57 L Pulse Ox 04/20/19 12:58 96 04/20/19 07:45 99 04/20/19 05:28 93 L Weight Admit Weight 154 lb Weight 154 lb I&O: 04/19/19 04/20/19 04/21/19 06:59 06:59 06:59 Intake Total 1860 1620 Output Total 675 150 Balance 1185 1470 Result Diagrams: 04/19/19 04:20 04/20/19 11:16 Hospitalist ROS - Review of Systems Respiratory: denies: cough, dry, shortness of breath, hemoptysis, SOB with excertion, pleuritic pain, sputum, wheezing, other Cardiovascular: denies: chest pain, palpitations, orthopnea, paroxysmal noc. dyspnea, edema, light headedness, other Gastrointestinal: denies: nausea, vomiting, abdominal pain, diarrhea, constipation, melena, hematochezia, other - Medication Medications: Active Medications Generic Name Dose Route Start Last Admin Trade Name Freq PRN Reason Stop Dose Admin Folic Acid 1 mg 04/17/19 09:00 04/20/19 10:48 Folvite PO 1 mg DAILY DEVANG Administration Gabapentin 300 mg 04/17/19 15:00 04/20/19 10:48 Neurontin PO 300 mg TID DEVANG Administration Sodium Chloride 1,000 mls @ 70 mls/hr 04/16/19 17:15 04/20/19 06:03 Normal Saline 0.9% IV 1,000 mls .[id number] DEVANG Administration Ondansetron HCl 4 mg 04/16/19 17:04 04/20/19 14:11 Zofran IVP 4 mg Q6H PRN Administration Nausea/Vomiting Sodium Chloride 10 ml 04/19/19 09:00 04/20/19 12:12 Flush - Normal Saline IVF Not Given Q12HR DEVANG Thiamine HCl 100 mg 04/17/19 09:00 04/20/19 10:48 Thiamine PO 100 mg DAILY DEVANG Administration - Exam Neck: negative: supple, symmetric, no JVD, no thyromegaly, no lymphadenopathy, no carotid bruit, JVD Heart: negative: RRR, no murmur, no gallops, no rubs, normal peripheral pulses, irregular, diminshed peripheral pulses, murmur present, II/IV, III/IV Respiratory: negative: CTAB, no wheezes, no rales, no ronchi, normal chest expansion, no tachypnea, normal percussion, rales, rhonchi, tachypneic, wheezes Gastrointestinal: negative: soft, non-tender, non-distended, normal bowel sounds , no palpable masses, no hepatomegaly, no splenomegaly, no bruit, no guarding, no rigidity, tender to palpation, distended, diminished bowl sounds, voluntary guarding Hosp A/P - Plan (1) Symptomatic anemia Code(s): D64.9 - ANEMIA, UNSPECIFIED Status: Acute (2) Macrocytic anemia Code(s): D53.9 - NUTRITIONAL ANEMIA, UNSPECIFIED Status: Acute (3) Hyponatremia Code(s): E87.1 - HYPO-OSMOLALITY AND HYPONATREMIA Status: Acute (4) Leukocytosis Code(s): D72.829 - ELEVATED WHITE BLOOD CELL COUNT, UNSPECIFIED Status: Acute (5) Elevated bilirubin Code(s): R17 - UNSPECIFIED JAUNDICE Status: Acute (6) Hepatic steatosis Code(s): K76.0 - FATTY (CHANGE OF) LIVER, NOT ELSEWHERE CLASSIFIED Status: Acute (7) Alcoholism Code(s): F10.20 - ALCOHOL DEPENDENCE, UNCOMPLICATED Status: Acute (8) Neuropathy Code(s): G62.9 - POLYNEUROPATHY, UNSPECIFIED Status: Acute - Plan Appreciate GI reccs Continue folic acid and thiamine Replete electrolytes NS@ 70ml/hr for maintenance fluids Hepatitis panel unremarkable 04/18 pt hypotensive, egd normal. will give one unit of blood. occult blood negative. s/p one unit of blood. pt has positive orthostaitc bp. will monitor. He will need some sort of placement. 04/19 pt tolerating his oral well, will continue iv fluids and he is having some diarrhea. if continues will check cdiff. he has no abdomen pain.
[2019-04-20] MEDS ORDERED: Magnesium 2 GM/50 ML 2 GM in Premix Bag 1 BAG IVPB SCH (14:30)
[2019-04-20] MEDS ORDERED: Potassium Chloride 20 MEQ TAB PO SCH (14:30)
[2019-04-21] MEDS: Ondansetron PF 4 MG/2 ML Vial IVP PRN ×4 (04:51→22:19)
[2019-04-21] MEDS: Folic Acid 1 MG TAB PO SCH (08:56)
[2019-04-21] MEDS: Gabapentin 300 MG CAP PO SCH ×3 (08:56→20:35)
[2019-04-21] MEDS: Thiamine 100 MG TAB PO SCH (08:56)
[2019-04-21] MEDS: Sodium Chloride 0.9% 1,000 ML IV SCH (09:06)
--- NOTE | 2019-04-21 15:37 | PDOC.HOSPP ---
- Subjective Encounter Date: 04/21/19 Encounter Time: 10:30 Subjective: Pt up in bed feels dizzy. - Objective Vital Signs & Weight: Vital Signs (12 hours) Temp Pulse Pulse Pulse Pulse Resp BP 04/21/19 14:35 98 04/21/19 12:00 98.6 F 100 16 04/21/19 09:15 109 H 108 H 116/66 04/21/19 08:00 04/21/19 07:45 97.8 F 91 20 04/21/19 04:25 98.4 F 94 14 BP BP BP BP BP BP Pulse Ox 04/21/19 14:35 116/75 04/21/19 12:00 109/64 95 04/21/19 09:15 110/60 129/74 04/21/19 08:00 98 04/21/19 07:45 118/73 98 04/21/19 04:25 104/64 96 Weight Admit Weight 154 lb Weight 173 lb I&O: 04/20/19 04/21/19 04/22/19 06:59 06:59 06:59 Intake Total 1620 2840 Output Total 150 425 Balance 1470 2415 Result Diagrams: 04/19/19 04:20 04/20/19 11:16 Hospitalist ROS - Review of Systems Respiratory: denies: cough, dry, shortness of breath, hemoptysis, SOB with excertion, pleuritic pain, sputum, wheezing, other Cardiovascular: denies: chest pain, palpitations, orthopnea, paroxysmal noc. dyspnea, edema, light headedness, other Gastrointestinal: denies: nausea, vomiting, abdominal pain, diarrhea, constipation, melena, hematochezia, other Genitourinary: denies: dysuria, frequency, incontinence, hematuria, retention, other - Medication Medications: Active Medications Generic Name Dose Route Start Last Admin Trade Name Freq PRN Reason Stop Dose Admin Folic Acid 1 mg 04/17/19 09:00 04/21/19 08:56 Folvite PO 1 mg DAILY DEVANG Administration Gabapentin 300 mg 04/17/19 15:00 04/21/19 14:56 Neurontin PO 300 mg TID DEVANG Administration Ondansetron HCl 4 mg 04/16/19 17:04 04/21/19 11:11 Zofran IVP 4 mg Q6H PRN Administration Nausea/Vomiting Sodium Chloride 10 ml 04/19/19 09:00 04/21/19 08:57 Flush - Normal Saline IVF 10 ml Q12HR DEVANG Administration Thiamine HCl 100 mg 04/17/19 09:00 04/21/19 08:56 Thiamine PO 100 mg DAILY DEVANG Administration - Exam Heart: negative: RRR, no murmur, no gallops, no rubs, normal peripheral pulses, irregular, diminshed peripheral pulses, murmur present, II/IV, III/IV Respiratory: negative: CTAB, no wheezes, no rales, no ronchi, normal chest expansion, no tachypnea, normal percussion, rales, rhonchi, tachypneic, wheezes Gastrointestinal: negative: soft, non-tender, non-distended, normal bowel sounds , no palpable masses, no hepatomegaly, no splenomegaly, no bruit, no guarding, no rigidity, tender to palpation, distended, diminished bowl sounds, voluntary guarding Extremities: negative: no cyanosis, no clubbing, no edema, 1+ LE edema, 2+ LE edema, clubbing Hosp A/P - Plan (1) Symptomatic anemia Code(s): D64.9 - ANEMIA, UNSPECIFIED Status: Acute (2) Macrocytic anemia Code(s): D53.9 - NUTRITIONAL ANEMIA, UNSPECIFIED Status: Acute (3) Hyponatremia Code(s): E87.1 - HYPO-OSMOLALITY AND HYPONATREMIA Status: Acute (4) Leukocytosis Code(s): D72.829 - ELEVATED WHITE BLOOD CELL COUNT, UNSPECIFIED Status: Acute (5) Elevated bilirubin Code(s): R17 - UNSPECIFIED JAUNDICE Status: Acute (6) Hepatic steatosis Code(s): K76.0 - FATTY (CHANGE OF) LIVER, NOT ELSEWHERE CLASSIFIED Status: Acute (7) Alcoholism Code(s): F10.20 - ALCOHOL DEPENDENCE, UNCOMPLICATED Status: Acute (8) Neuropathy Code(s): G62.9 - POLYNEUROPATHY, UNSPECIFIED Status: Acute - Plan Appreciate GI reccs Continue folic acid and thiamine Replete electrolytes NS@ 70ml/hr for maintenance fluids Hepatitis panel unremarkable 04/18 pt hypotensive, egd normal. will give one unit of blood. occult blood negative. s/p one unit of blood. pt has positive orthostaitc bp. will monitor. He will need some sort of placement. 3/ pt tolerating his oral well, will continue iv fluids and he is having some diarrhea. if continues will check cdiff. he has no abdomen pain. 3/ pt had positive orthostatic, will give him a liter of ns. awaiting rehab placement. Continue thiamine and folic acid. He is having diarrhea but has slowed down. will monitor. will check labs in am. He has no abdomen pain.
[2019-04-21 16:06] VITALS: BMI 25.5
[2019-04-21] MEDS ORDERED: Sodium Chloride 0.9% 1,000 ML IV SCH (19:00)
[2019-04-22 05:05] LABS: Anion Gap 10 mmol/L (10-20); BUN (Urea Nitrogen) 6 mg/dL (8.4-25.7); Calc. Creatinine Clearance 145 mL/min (70-130); Calcium 7.2 mg/dL (7.8-10.44); Carbon Dioxide 19 mmol/L (23-31); Chloride 106 mmol/L (98-107); Estimated GFR-MDRD Greater than 90; Glucose 121 mg/dL (80-115); Magnesium 1.7 mg/dL (1.6-2.6); Potassium 3.8 mmol/L (3.5-5.1); Sodium 131 mmol/L (136-145)
[2019-04-22 05:19] LABS: Band 2 % (5-11); Hemoglobin 7.4 g/dL (14.0-18.0); Lymphocytes 20 % (21-51); MDiff Complete? YES; Mean Corpuscular HGB CONC 32.7 g/dL (32.0-36.0); Mean Corpuscular Hemoglobin 31.4 pg (27.0-31.0); Mean Platelet Volume 7.5 fL (7.4-10.4); Monocytes 8 % (0-10); Myelocyte 1 % (0-0); Neutrophil 69 % (42-75); Platelet Count 456 thou/uL (130-400); Red Blood Cell (RBC) Count 2.34 mill/uL (4.70-6.10); White Blood Cell (WBC) Count 18.8 thou/uL (4.8-10.8)
[2019-04-22] MEDS: Thiamine 100 MG TAB PO SCH (09:43)
[2019-04-22] MEDS: Folic Acid 1 MG TAB PO SCH (09:43)
[2019-04-22] MEDS: Gabapentin 300 MG CAP PO SCH ×3 (09:43→20:23)
[2019-04-22] MEDS: Ondansetron PF 4 MG/2 ML Vial IVP PRN ×2 (13:31→20:39)
--- NOTE | 2019-04-22 16:13 | RAD ---
FRONTAL RADIOGRAPH CHEST: 04/22/19 COMPARISON: 04/16/19 HISTORY: Elevated white blood cell count. FINDINGS: Mild linear density in the medial left base suggest scar and/or volume loss. No lobar consolidation o r alveolar edema. Heart and mediastinum contours appear stable. Old left sided rib fractures are noted. IMPRESSION: No focal consolidation or alveolar edema. Mild increased linear density in the medial left lung base. POS: DARBY
--- NOTE | 2019-04-22 18:01 | PDOC.HOSPP ---
- Subjective Encounter Date: 04/22/19 Encounter Time: 10:15 Subjective: pt up in bed is still having some diarrhea. - Objective Vital Signs & Weight: Vital Signs (12 hours) Temp Pulse Pulse Pulse Resp BP BP 04/22/19 15:55 98.9 F 103 H 15 04/22/19 11:24 99.3 F 109 H 15 04/22/19 11:23 98 97 112/64 113/66 04/22/19 08:00 98.4 F 97 15 BP Pulse Ox Pulse Ox Pulse Ox 04/22/19 15:55 117/73 96 04/22/19 11:24 115/66 94 L 04/22/19 11:23 95 943 H 04/22/19 08:00 110/67 94 L Weight Admit Weight 154 lb Weight 173 lb I&O: 04/21/19 04/22/19 04/23/19 06:59 06:59 06:59 Intake Total 2840 1040 Output Total 425 Balance 2415 1040 Result Diagrams: 04/22/19 04:03 04/22/19 04:03 Hospitalist ROS - Review of Systems Respiratory: denies: cough, dry, shortness of breath, hemoptysis, SOB with excertion, pleuritic pain, sputum, wheezing, other Cardiovascular: denies: chest pain, palpitations, orthopnea, paroxysmal noc. dyspnea, edema, light headedness, other Gastrointestinal: reports: diarrhea Genitourinary: denies: dysuria, frequency, incontinence, hematuria, retention, other Musculoskeletal: denies: neck pain, shoulder pain, arm pain, back pain, hand pain, leg pain, foot pain, other - Medication Medications: Active Medications Generic Name Dose Route Start Last Admin Trade Name Freq PRN Reason Stop Dose Admin Folic Acid 1 mg 04/17/19 09:00 04/22/19 09:43 Folvite PO 1 mg DAILY DEVANG Administration Gabapentin 300 mg 04/17/19 15:00 04/22/19 14:54 Neurontin PO 300 mg TID DEVANG Administration Ondansetron HCl 4 mg 04/16/19 17:04 04/22/19 13:31 Zofran IVP 4 mg Q6H PRN Administration Nausea/Vomiting Sodium Chloride 10 ml 04/19/19 09:00 04/22/19 09:43 Flush - Normal Saline IVF 10 ml Q12HR DEVANG Administration Thiamine HCl 100 mg 04/17/19 09:00 04/22/19 09:43 Thiamine PO 100 mg DAILY DEVANG Administration - Exam Neck: negative: JVD Heart: negative: RRR, no murmur, no gallops, no rubs, normal peripheral pulses, irregular, diminshed peripheral pulses, murmur present, II/IV, III/IV Respiratory: negative: CTAB, no wheezes, no rales, no ronchi, normal chest expansion, no tachypnea, normal percussion, rales, rhonchi, tachypneic, wheezes Gastrointestinal: soft, normal bowel sounds Gastrointestinal - other findings: mild abd distention noted Extremities: 1+ LE edema Skin: no rashes. negative: normal turgor, no lesions, tenting Hosp A/P - Plan (1) Symptomatic anemia Code(s): D64.9 - ANEMIA, UNSPECIFIED Status: Acute (2) Macrocytic anemia Code(s): D53.9 - NUTRITIONAL ANEMIA, UNSPECIFIED Status: Acute (3) Hyponatremia Code(s): E87.1 - HYPO-OSMOLALITY AND HYPONATREMIA Status: Acute (4) Leukocytosis Code(s): D72.829 - ELEVATED WHITE BLOOD CELL COUNT, UNSPECIFIED Status: Acute (5) Elevated bilirubin Code(s): R17 - UNSPECIFIED JAUNDICE Status: Acute (6) Hepatic steatosis Code(s): K76.0 - FATTY (CHANGE OF) LIVER, NOT ELSEWHERE CLASSIFIED Status: Acute (7) Alcoholism Code(s): F10.20 - ALCOHOL DEPENDENCE, UNCOMPLICATED Status: Acute (8) Neuropathy Code(s): G62.9 - POLYNEUROPATHY, UNSPECIFIED Status: Acute - Plan Appreciate GI reccs Continue folic acid and thiamine Replete electrolytes NS@ 70ml/hr for maintenance fluids Hepatitis panel unremarkable 04/18 pt hypotensive, egd normal. will give one unit of blood. occult blood negative. s/p one unit of blood. pt has positive orthostaitc bp. will monitor. He will need some sort of placement. 04/19 pt tolerating his oral well, will continue iv fluids and he is having some diarrhea. if continues will check cdiff. he has no abdomen pain. 04/20 pt had positive orthostatic, will give him a liter of ns. awaiting rehab placement. Continue thiamine and folic acid. He is having diarrhea but has slowed down. will monitor. will check labs in am. He has no abdomen pain. 3/3 will check cdiff on pt. he has a elevated wbc, will also get a cxr. No fever and no abdomen pain.
[2019-04-22] MEDS: Lactated Ringer's 1,000 ML IV SCH (19:19)
[2019-04-22] MEDS: Vancomycin HCl 25 MG/ML Oral PO SCH ×2 (20:23→23:18)
[2019-04-23 05:15] LABS: Hemoglobin 6.8 g/dL (14.0-18.0); Mean Corpuscular HGB CONC 32.2 g/dL (32.0-36.0); Mean Corpuscular Hemoglobin 31.5 pg (27.0-31.0); Mean Corpuscular Volume 97.7 fL (78.0-98.0); Mean Platelet Volume 7.4 fL (7.4-10.4); Platelet Count 430 thou/uL (130-400); RBC Distribution Width 21.1 % (11.5-14.5); Red Blood Cell (RBC) Count 2.17 mill/uL (4.70-6.10); White Blood Cell (WBC) Count 17.2 thou/uL (4.8-10.8)
[2019-04-23 05:16] LABS: Anion Gap 10 mmol/L (10-20); BUN (Urea Nitrogen) 5 mg/dL (8.4-25.7); Calc. Creatinine Clearance 143 mL/min (70-130); Calcium 7.4 mg/dL (7.8-10.44); Carbon Dioxide 19 mmol/L (23-31); Chloride 107 mmol/L (98-107); Estimated GFR-MDRD Greater than 90; Glucose 94 mg/dL (80-115); Potassium 3.8 mmol/L (3.5-5.1); Sodium 132 mmol/L (136-145)
[2019-04-23 05:54] LABS: Band 6 % (5-11); Lymphocytes 22 % (21-51); MDiff Complete? YES; Metamyelocyte 2 % (0-0); Monocytes 6 % (0-10); Myelocyte 4 % (0-0); Neutrophil 60 % (42-75); Nucleated RBC 1 % (0)
[2019-04-23] MEDS: Vancomycin HCl 25 MG/ML Oral PO SCH ×3 (06:01→17:54)
[2019-04-23] MEDS: Lactated Ringer's 1,000 ML IV SCH (08:56)
[2019-04-23] MEDS: Ondansetron PF 4 MG/2 ML Vial IVP PRN ×2 (08:56→17:55)
[2019-04-23] MEDS: Folic Acid 1 MG TAB PO SCH (08:57)
[2019-04-23] MEDS: Gabapentin 300 MG CAP PO SCH ×2 (08:57→15:25)
[2019-04-23] MEDS: Thiamine 100 MG TAB PO SCH (08:57)
[2019-04-23] MEDS ORDERED: Saccharomyces boulardii 250 MG CAP PO SCH (09:00)
[2019-04-23 17:53] VITALS: BP 127/71; TEMP 99.2
--- NOTE | 2019-04-24 01:11 | DIS ---
DATE OF ADMISSION: 04/16/2019 DATE OF DISCHARGE: 04/23/2019 DISCHARGE DIAGNOSES: 1. ___nutritional anemia, most likely secondary to alcohol use. 2. Hyponatremia. 3. Leukocytosis. 4. Elevated bilirubin. 5. Hepatic steatosis. 6. Alcohol abuse. 7. Clostridium difficile, new diagnosis. HOSPITAL COURSE: The patient is a 68-year-old male, who initially presented to the hospital on 03/27, with complaints of generalized weakness and hypotension. At this time, he was found to have a low hemoglobin. He denied any hematemesis. Denied any dark stools. The patient drinks significant amount of alcohol. He did have an ultrasound that indicated hepatic steatosis and gallbladder sludge. At this time, he was seen by GI and underwent an endoscopy. Prior to that, he was put on a PPI. His endoscopy indicated normal EGD. His anemia was most likely secondary to malnutrition and alcohol use. His ferritin however was significantly elevated at this time. ordered a hereditary hemochromatosis study that was sent out. The patient did require blood transfusion. He required total number of 5 units of PRBCs. The patient also received several boluses of fluids for his hypotension. He then spiked a significant amount of leukocytosis and started having diarrhea at this time. Clostridium difficile was checked and was positive for the toxin and for the antigen. He was put on vancomycin. His diarrhea has improved. His appetite has improved. He is going to be discharged to inpatient rehab for further evaluation and further strengthening. PHYSICAL EXAMINATION: VITAL SIGNS: His discharge vitals are 99.2, 18, 127/71, 98. GENERAL: He is awake, alert, and oriented x3. Does not appear in distress. CV: S1 and S2 present. No murmurs, rubs, or gallops. ABDOMEN: Mildly distended, soft. Bowel sounds are present x2. He stated that he had diarrhea earlier today. EXTREMITIES: Lower extremity mild 1+ pitting edema. HOME MEDICATIONS: Will be as of the following. He is going to be on: 1. Vancomycin 125 mg q.6 hours for about 14 days. 2. Thiamine 100 mg daily. 3. Florastor 250 mg daily. 4. Folic acid one p.o. daily. 5. Gabapentin 300 mg t.i.d. Again, the patient will be discharged to rehab. He did receive a unit of blood. Prior to discharge, his hemoglobin was 6.8; however, the patient was currently very asymptomatic. Job ID: [id number] MTDD
--- NOTE | 2019-04-24 06:56 | PQF ---
FRANCINE ALBA JR, KARISHMA [id number] [facility]-268 [id number] CLINICAL DOCUMENTATION CLARIFICATION FORM: POST DISCHARGE Addendum to original discharge summary date: ____ Late entry note date: __ DATE:04/24/2019 ATTN: Jayda Sweet Please exercise your independent, professional judgment in responding to the clarification form. Clinical indicators are provided on the bottom of this form for your review In your clinical opinion based on clinical findings below, can you please identify the etiology of Hypotension if due to: Please check appropriate box(s): [x ] Nutritional Anemia [ x ] Orthostatic Hypotension [ ] Toxic effect of Alcohol [ ] Shock, please specify type: [ ] Other diagnosis [ ] Unable to determine For continuity of documentation, please document condition throughout progress notes and discharge summary. Thank You. CLINICAL INDICATORS - SIGNS / SYMPTOMS / LABS Laboratory 04/16 WBC 15.3, RBC 1.78, Hgb 6.0, Hct 18.0 Vital signs 04/16 BP 91/53, Pulse 106, Resp 22, Temp 98.1 Hospitalist H&P p1 04/16 Dr Oshea presents to the ER with hypotension. He reportedly went to see a certified real estate appraiser today because he was experiencing SOB and weakness and ws found to be hypotensive with BP of 60/40 Hospitalist H&P p1 04/16 Dr Oshea He states for the past few weeks he has been feeling weak, he had nausea as well as decreased appetite. He does endorse any weight loss Hospitalist H&P p1 04/16 He reportedly drinks several martinis a day and has been doing for many years Hospitalist H&P p4 04/19 Pt has positive orthostatic bp DS p1 04/22 complaints of generalized weakness and hypotension. At this time he was found to have a low hemoglobin RISK FACTORS Hospitalist H&P p1 04/16 68 year-old Male Hospitalist H&P p1 04/16 Depression Hospitalist H&P p1 04/16 Neuropathy Hospitalist H&P p2 04/16 Cigarettes Smoker Hospitalist H&P p4 04/16 Macrocytic Anemia Hospitalist H&P p5 04/16 Hepatic steatosis Hospitalist H&P p5 04/16 Alcoholism Hospitalist H&P p4 04/16 Hyponatremia TREATMENTS: Blood bank 04/16 PRBC APR 20 IVF NS 1L bolus APR 20 Thiamine 100mg po APR 20 Folic Acid 1mg po APR 20 -IV Magnesium Sulfate 2gm APR 20 K-Dur 40meq po APR 21 Lactated Ringers IV 1L APR 21 IV Vancomycin 125mg po Hospitalist H&P p5 04/16 Monitor Hb Hospitalist H&P p5 04/16 Workup of anemia including folate, b12, reticulocyte count and periphearal smear Stool Cultured ordered 04/17 (This form is maintained as a part of the permanent medical record) 2014 [employer] All Rights Reserved [email or web address]
== END 2019-04-23 19:27 | DRG 812 ==
LOC: ERS 12:13 → 2NO 16:42
PROVIDERS: ADMIT Internal Medicine; ATTEND Internal Medicine
PROC: 30233N1 Transfusion of Nonautologous Red Blood Cells into Peripheral Vein, Percutaneous Approach (ICD-10-PCS; principal; 2019-04-16)
PROC: 0DJ08ZZ Inspection of Upper Intestinal Tract, Via Natural or Artificial Opening Endoscopic (ICD-10-PCS; 2019-04-18)
DX: D53.9 Nutritional anemia, unspecified (principal); E44.0 Moderate protein-calorie malnutrition; E87.1 Hypo-osmolality and hyponatremia; F10.288 Alcohol dependence with other alcohol-induced disorder; A04.72 Enterocolitis due to Clostridium difficile, not specified as recurrent; I95.1 Orthostatic hypotension; K70.10 Alcoholic hepatitis without ascites; K76.0 Fatty (change of) liver, not elsewhere classified; G62.9 Polyneuropathy, unspecified; F32.9 Major depressive disorder, single episode, unspecified; F17.210 Nicotine dependence, cigarettes, uncomplicated; Z68.25 Body mass index [BMI] 25.0-25.9, adult; Z79.899 Other long term (current) drug therapy
CPT/HCPCS: 36415; 36430; 71045; 74177; 76705; 80048; 80053; 80074; 81001; 81003; 81256; 82274; 82607; 82728; 82746; 82977; 83540; 83550; 83690; 83735; 83880; 84484; 85025; 85046; 85060; 85610; 85730; 86850; 86900; 86901; 87324; 87449; 87493; 93005; 94760; 96360; J2405; J2704; J3475; P9016; Q9967

== ENCOUNTER 2019-06-06 16:01 | Inpatient (IN) | payer MEDICARE, BC ==
[2019-06-06 17:33] LABS: Hemoglobin 11.4 g/dL (14.0-18.0); Mean Corpuscular HGB CONC 33.3 g/dL (32.0-36.0); Mean Corpuscular Hemoglobin 32.4 pg (27.0-31.0); Mean Corpuscular Volume 97.4 fL (78.0-98.0); RBC Distribution Width 15.6 % (11.5-14.5); Red Blood Cell (RBC) Count 3.51 mill/uL (4.70-6.10); White Blood Cell (WBC) Count 3.8 thou/uL (4.8-10.8)
[2019-06-06 17:41] LABS: Mean Platelet Volume 9.4 fL (7.4-10.4); Platelet Count 100 thou/uL (130-400)
[2019-06-06 17:42] LABS: Bilirubin Negative (Negative); Blood, Urine Negative (Negative); Clarity Clear (Clear); Glucose, Urine (Dipstick) Normal (Negative); Leukocyte Negative Leu/uL (Negative); Nitrite Negative (Negative); Protein, Urine (Dipstick) Negative (Neg-Trace); Urobilinogen Normal mg/dL (Less than 2)
[2019-06-06 17:54] LABS: #Lymphocytes 1.3 thou/uL (1.20-3.40); #Monocytes 0.2 thou/uL (0.11-0.59); #Neutrophils 2.2 thou/uL (1.40-6.50); %Basophils 0.1 % (0.0-1.0); %Eosinophils 0.8 % (0.0-10.0); %Lymphocytes 35.3 % (21.0-51.0); %Monocytes 5.8 % (0.0-10.0); ALT (SGPT) 19 U/L (8-55); AST (SGOT) 120 U/L (5-34); Alcohol 243 mg/dL (Less than 10); Alkaline Phosphatase 307 U/L (40-110); Anion Gap 20 mmol/L (10-20); Anisocytosis SLIGHT = 6-15 cells (100X) (0-5/hpf); BUN (Urea Nitrogen) 4 mg/dL (8.4-25.7); Bilirubin, Total 1.4 mg/dL (0.2-1.2); Calc. Creatinine Clearance 0 mL/min (70-130); Carbon Dioxide 24 mmol/L (23-31); Chloride 100 mmol/L (98-107); Estimated GFR-MDRD Greater than 90; Globulin 4.8 g/dL (2.4-3.5); Glucose 109 mg/dL (80-115); MDiff Complete? YES; Magnesium 1.6 mg/dL (1.6-2.6); Platelet Morphology Comment Appears Decreased; Polychromasia SLIGHT = 2-3 cells (100X) (0-2/hpf); Protein, Total 7.8 g/dL (5.8-8.1); Sodium 141 mmol/L (136-145); Target Cells SLIGHT = 2-5 cells (100X) (0-1/hpf)
--- NOTE | 2019-06-06 18:30 | CT ---
CT BRAIN WITHOUT CONTRAST: 06/06/19 HISTORY: Injury. Fall. COMPARISON: CT brain 2019. FINDINGS: Similar appearance of the bilateral nasal bone fractures. Likely right orbital floor fracture. There is hemosinus in the right maxillary sinus extending into the posterior ethmoids. No retrobulbar hemat greg. Small focus of subarachnoid hemorrhage along the left superior frontal gyrus near the vertex on axial image 24. No midline shift. No mass effect. IMPRESSION: 1. Small subarachnoid hemorrhage along the left superior frontal gyrus. 2. Likely right orbital floor fracture. 3. Healing nasal bone fractures. 4. Osseous nasal septal fracture. Code CR The ordering provider notified of findings via telephone at 5:44 p.m. POS: HOME
--- NOTE | 2019-06-06 18:38 | RAD ---
RIGHT HAND THREE VIEW: 06/06/19 HISTORY: Fall. Injury. COMPARISON: None. FINDINGS: The exam is limited due to lack of a normal three view lateral radiograph. There is a fracture through the second metacarpal head near the metacarpophalangeal joint although is not felt to extend into the metacarpophalangeal joint itself. Mild degenerative disease of the thumb carpometacarpal joint. Normal appearance to the proximal carpa l row. IMPRESSION: Minimally impacted fracture of the second metacarpal head/neck, the index finger. POS: HOME
--- NOTE | 2019-06-06 18:44 | CT ---
CT FACE WITHOUT CONTRAST: 06/06/19 HISTORY: Injury, fall. COMPARISON: CT face 02/14/19. FINDINGS: Healing bilateral nasal bone fractures. There is, however, a new osseous nasal septal fracture. There is high density debris which is new in the right maxillary sinus and also the posterior ethmoid. Le ft maxillary sinus is clear. Minimally impacted right orbital floor fracture measuring 4 mm in transv erse with an AP width of 1.5 cm. The impaction is approximately 2 mm. The zygoma and zygomatic arches are intact. No herniation of the inferior rectus muscle or significan t fat. The mandible itself is intact. IMPRESSION: 1. Minimally depressed right orbital floor fracture. No retrobulbar hematoma. No herniation of f at or rectus musculature. 2. Healing nasal bone fractures. 3. New acute osseous nasal septal fracture with minimal rightward buckling. POS: HOME
--- NOTE | 2019-06-06 20:21 | CT ---
EXAM: CERVICAL SPINE CT SCAN WITHOUT IV CONTRAST: 06/06/19 HISTORY: Injury from a fall. FINDINGS: disc osteophytosis at C6-C7 with associated canal, lateral recess, and foraminal stenosis. No evidenc e for acute fracture or dislocation. No significant prevertebral soft tissue swelling. IMPRESSION: Disc osteophytosis with associated stenosis. No evidence for acute fracture or dislocation. POS: RRE
[2019-06-06 20:39] LABS: Troponin I Less than 0.010 ng/mL (< 0.028)
[2019-06-06 20:47] LABS: INR-International Normal Ratio 1.1; PTT 34.4 SEC (22.9-36.1); Prothrombin Time 14.4 SEC (12.0-14.7)
[2019-06-06] MEDS ORDERED: Dextrose 5% in Water 1,000 ML IV PRN (21:00)
[2019-06-06] MEDS ORDERED: Dextrose 50% Abboject 50 ML SYRINGE SLOW IVP PRN (21:00)
[2019-06-06] MEDS ORDERED: HumaLOG 300 UNITS/3 ML VIAL SC PRN (21:00)
[2019-06-06] MEDS ORDERED: traMADol HCl 50 MG TAB PO PRN ×2 (21:02)
[2019-06-06] MEDS ORDERED: Acetaminophen 325 MG TAB PO PRN (21:02)
[2019-06-06 21:28] LABS: Magnesium 1.4 mg/dL (1.6-2.6); Phosphorus 3.4 mg/dL (2.3-4.7)
[2019-06-06] MEDS ORDERED: Magnesium 2 GM/50 ML 2 GM in Premix Bag 1 BAG IVPB SCH (21:30)
[2019-06-06] MEDS ORDERED: Potassium Phosphate 15 MMOL in Sodium Chloride 0.9% 250 ML 250 ML IVPB SCH (22:00)
--- NOTE | 2019-06-06 22:21 | HP ---
This is Boston Salazar PA-C dictating a report for Vernon Busch MD. REQUESTING PHYSICIAN: 1. Dr. Vernon Ramos. 2. Bharat Mathews NP. CONSULTING PHYSICIAN: 1. Dr. Sutton, Neurosurgeon. 2. OMFS, Dr. Vernon Mai. ATTENDING PHYSICIAN: Dr. Busch. HISTORY OF PRESENT ILLNESS: Mr. Carmona is a 68-year-old male who presented to the ED after a fall at home. The patient reports he went to the bathroom and then did not remember what happened, but then he woke up, found himself face down with bleeding from his nose. He could not get up, complaining of headache, neck pain, and right upper extremity pain. The patient is alert, awake, and oriented x3 during the way of transfer to our facility. Upon arrival in the ED, the patient alert and awake. GCS 15. The patient oriented x3. Vital signs stable. Complaining of headache, neck pain, and right upper extremity pain with obvious bleeding from his nostril bilaterally. The bleeding is stopped upon arrival. REVIEW OF SYSTEMS: Noncontributory except per HPI. PAST MEDICAL HISTORY: Noncontributory. PAST SURGICAL HISTORY: Cataract, kidney stone lithotripsy. PAST PSYCHIATRIC HISTORY: Anxiety, depression, substance abuse, alcoholism. SOCIAL HISTORY: The patient lives by himself in assisted living. The patient drinks every day heavily, 5 to 6 drinks a day. The patient uses cigarettes, 1-2 cigarettes a day. Denies drug use. ALLERGIES: NO KNOWN DRUG ALLERGIES. CURRENT MEDICATIONS: Buspirone and gabapentin. PHYSICAL EXAMINATION: GENERAL: Currently, the patient is lying in bed comfortable with no acute respiratory distress. The patient is alert and awake. GCS 15. Oriented x3. SKIN: [place] and moist. VITAL SIGNS: Heart rate 89, respiratory rate 21, O2 saturation 97% on room air, temperature 97.8, blood pressure 106/66. HEENT: Obvious deformity of his nasal bone. Pupils 3 mm, equal bilaterally and reactive to light. NECK: Trachea midline. Tender to palpation of the midline and the left side of C-spine. LUNGS: Atraumatic. No bruising. Not tender to palpation. Lungs clear bilaterally. HEART: Regular rate and rhythm. ABDOMEN: Soft, nondistended. Bowel sounds are active. EXTREMITIES: Upper right hand splint is in place. Neurovascularly intact. Bilateral lower extremity neurovascularly intact. Normal range of motion. Left upper extremity neurovascularly intact. Normal range of motion. NEUROLOGIC: No focal neurology deficits. LABORATORY DATA: Initial workup shows white count 3.8, hemoglobin 11.4, platelet count 100. Chemistry; sodium 141, potassium 3.0, creatinine 0.71, elevated bilirubin with total bilirubin 1.4, AST 120, ALT is 19. Plasma alcohol 243. Urine is clean. IMAGING DATA: Right hand x-ray, minimally impacted fracture of the second metacarpal head and neck of the index finger. Facial bone CT scan show minimally depressed right orbital floor fracture. No retrobulbar hematoma. No herniation of fat or rectus musculature. Healing nasal bone fracture. New acute osseous nasal septal fracture with minimal rightward buckling. Cervical spine CT scan, disk osteophytes with associated stenosis. No evidence of acute fracture or dislocation. Brain CT scan shows small subarachnoid hemorrhage along the left superior frontal gyrus. ASSESSMENT: 1. Status post unwitnessed fall, face down. 2. Possible syncope . 3. Small subarachnoid hemorrhage. 4. Orbital floor fracture and nasal septal fracture. 5. Right index metacarpal fracture. 6. History of anxiety, depression, substance abuse, alcoholism. 7. Hypokalemia. PLAN: The patient will be admitted to [facility] for neuro check q.[address] scan tomorrow per neurosurgeon, Dr. Sutton. Dr Glover was notify , and will see patient in the morning Initiate gastritis prophylaxis, nonpharmacological DVT prophylaxis. Initiate alcohol withdrawal treatment. The patient will be on clear-liquid diet. Continue C-collar. The patient will have potassium replacement IV. We will check electrolyte tomorrow. Dr. Busch will be notified after this dictation. Job ID: [id number] [facility]
[2019-06-06] MEDS: Oxazepam 10 MG CAP PO SCH (23:40)
[2019-06-06] MEDS: Morphine 2 MG/ML SYRINGE SLOW IVP PRN (23:41)
[2019-06-06] MEDS: Famotidine/PF 20 mg/2ml Vial SLOW IVP SCH (23:43)
[2019-06-06] MEDS: Ondansetron PF 4 MG/2 ML Vial IVP PRN (23:49)
[2019-06-07 00:09] LABS: Troponin I 0.016 ng/mL (< 0.028)
[2019-06-07 04:22] LABS: Anion Gap 20 mmol/L (10-20); BUN (Urea Nitrogen) 5 mg/dL (8.4-25.7); Calc. Creatinine Clearance 103 mL/min (70-130); Calcium 7.6 mg/dL (7.8-10.44); Carbon Dioxide 22 mmol/L (23-31); Chloride 104 mmol/L (98-107); Estimated GFR-MDRD Greater than 90; Glucose 110 mg/dL (80-115); Magnesium 1.9 mg/dL (1.6-2.6); Potassium 3.8 mmol/L (3.5-5.1); Sodium 142 mmol/L (136-145)
[2019-06-07 04:23] LABS: Phosphorus 5.3 mg/dL (2.3-4.7)
[2019-06-07] MEDS: Morphine 2 MG/ML SYRINGE SLOW IVP PRN (04:30)
[2019-06-07] MEDS: Ondansetron PF 4 MG/2 ML Vial IVP PRN ×3 (05:38→19:18)
--- NOTE | 2019-06-07 08:16 | CT ---
PRELIMINARY REPORT/[facility]/EMERGENCY AFTER HOURS PROCEDURE: Receipt of this report by the clinical staff was confirmed with Elena Amin RN by China Stokes on Jun 07, 2019 06:01:00 CDT. Addendum electronically signed by China Stokes on June 07, 2019 6:02:[address] BRAIN WO CON History: [facility] F/U Comparison: CT\SR - CT BRAIN WO CON - 06/06/2019 05:33 PM CDT Findings: Focus of extra-axial hemorrhage along the paramedian left frontal lobe posteriorly (image 23) is agai n identified without significant change from prior. No new areas of hemorrhage are appreciated. No midline shift or hydrocephalus. Chronic small vessel ischemic changes again identified. Pepper-white differentiation is intact. Calvarium is intact. Bilateral nasal bone fractures are again seen. Fracture of the bony nasal septum again seen. Orbital floor fracture suspected, similar to prior. There is blood products with air-fluid level in the right maxillary sinus. Air-fluid level also in the right frontal sinus. No mastoid fluid. Vascular calcifications are present. Impression: 1. Stable extra-axial subarachnoid hemorrhage in the posterior left frontal region paramedian along the falx. No new areas of hemorrhage identified. 2. Stable senescent intracranial findings. 3. Redemonstration of multiple facial fractures with blood products and air-fluid levels in the righ t frontal and maxillary sinuses, as detailed above. No change from prior. 4. Additional findings, as above. No significant change from previous study. ELECTRONICALLY SIGNED BY: Salvador Jackman DO Jun 07, 2019 4:58:54 AM CDT This report is intended for review by the ordering physician only, in accordance of law. If you recei ve this report in error, please call [facility] at [phone]. FINAL REPORT BRAIN CT WITHOUT IV CONTRAST EMERGENCY AFTER HOURS EXAM DATE: 06-07-2019 TIME: 4:42 AM FINDINGS: Stable small focal hemorrhage, probably subarachnoid, in the left parasagittal region. Atrophy and ch ronic white matter ischemic changes. Multiple facial fractures noted as above. IMPRESSION: Stable small left parasagittal hemorrhage. Stable facial fractures. Stable atrophy. No new mass or he morrhage. This report is in agreement with the preliminary report.
--- NOTE | 2019-06-07 08:21 | PRG ---
DATE OF SERVICE: 06/07/2019 I personally interviewed and examined the patient, agreed with documentation of Casey Callaway PA-C dated 06/06/2019. Briefly, Otto Carmona is a 68-year-old man, had an unexplained syncope yesterday with right upper extremity facial fractures and also a tiny amount of traumatic subarachnoid hemorrhage over the left cerebral convexity near the midline. Overnight, he has been resting comfortably in his room. Temperature overnight reached a 98.8 degree maximum. The blood pressures have been between the 110s and 120s. Mr. Carmona's neurological examination is normal. I reviewed his CT scan and compared it to his admission CT. There has been no increase in the size of the hyperdensity over the left cerebral convexity near the midline. This is likely traumatic subarachnoid hemorrhage and has not increased in size. There is no mass effect. Mr. Alvarez suffered a syncope with head injury. Cardiac reasons should be worked up. The bleeding in the brain will require a surgical intervention, but he will need a prior CT scan in 3 weeks, which we will arrange from our office. He is in a cervical collar and if CT scan is negative, it is likely that palpation could clear his neck today. Job ID: [id number] [facility]
--- NOTE | 2019-06-07 09:46 | CON ---
DATE OF CONSULTATION: 06/07/2019 This is Stephania Espinoza PA-C dictating a report for Dannie Meek MD. Requesting physician is Trauma Services. CONSULTING PHYSICIAN: Dr. Dannie Meek. REASON FOR CONSULTATION: Right hand fracture. HISTORY OF PRESENT ILLNESS: This is a 68-year-old male, presented to our emergency department after a fall at home. Patient states that he tripped whenever he went to the bathroom. He does not recall the exact events, but when he woke up, he found himself face down with bleeding coming from his face. Upon workup in our emergency department, patient was found to have a right second metacarpal fracture at the distal aspect which was nondisplaced. We have been consulted for this reason. Patient was placed in a splint in the emergency department. He is also found to have a small subarachnoid hemorrhage as well as orbital floor fracture and nasal septal fracture. OMFS as well as Neurosurgery have been consulted as well. Currently at bedside, patient reports some pain in his right hand. He is right-hand dominant. No numbness, no tingling. No other complaints of orthopedic pain at this time. PHYSICAL EXAMINATION: VITAL SIGNS: Show current vital signs including blood pressure of 117/69, pulse of 85, respiratory rate of 24, temperature of 98.4, and 96% on room air. GENERAL: Patient is awake and alert. He is in no apparent distress at this time. He is cooperative with exam today. HEENT: Normocephalic. There is dried blood around his nose. NECK: Supple. Trachea midline. LUNGS: Breathing is nonlabored. EXTREMITIES: Evaluation of the right upper extremity shows a splint intact to his hand. This is a fiberglass splint which is overwrapped with Feroz and has Webril beneath it. This was removed for evaluation. There is ecchymosis and soft tissue swelling present at the hand about the distal second and third metacarpal regions. Skin is intact. This area is tender to palpation. Patient is able to move all digits, including his index finger. He does have some difficulty with movement of the MP joint of the index finger. He is able to move the PIP as well as the DIP joint of this finger. Nailbed is intact. Distal neurovascular sensation is intact and capillary refill is 3 seconds. Full range of motion in the wrist and the elbow. No other acute deformities or injuries are noted to the remainder of the extremities. X-RAYS: Reviewed today with Dr. Meek show 3-views of the right hand, which show a nondisplaced fracture at the head and neck region of the second metacarpal on the right hand. IMPRESSION: Right hand fracture, nondisplaced, status post fall. PLAN: At this time, patient's splint has been removed. He is right-hand dominant. He may use his hand as tolerated. No need for a splint at this time. No surgical intervention anticipated. Patient will follow up in the Orthopedic Clinic for followup evaluation and x-rays in 3 to 4 weeks. Plan of care discussed with the patient and he is amenable to this. Job ID: [id number]
[2019-06-07] MEDS: Thiamine 100 MG TAB PO SCH (09:52)
[2019-06-07] MEDS: Folic Acid 1 MG TAB PO SCH (09:52)
[2019-06-07] MEDS: Senokot S 8.6-50 MG TAB PO SCH ×2 (09:52→21:06)
[2019-06-07] MEDS: Oxazepam 10 MG CAP PO SCH ×2 (09:52→22:06)
[2019-06-07] MEDS: Gabapentin 300 MG CAP PO SCH ×2 (09:53→21:06)
[2019-06-07] MEDS: Famotidine/PF 20 mg/2ml Vial SLOW IVP SCH ×2 (09:53→21:06)
[2019-06-07] MEDS: Polyethylene Glycol 3350 17 GM Packet PO SCH (09:53)
--- NOTE | 2019-06-07 10:23 | PDOC.EVN ---
Event Note - Event Note Event Note: Patient seen and examined. c/o headache. OMFS to see this am. Appreciated neurosurgery assistance
[2019-06-07] MEDS ORDERED: Sodium Chloride 0.65% Nasal 44 ML BOT EA NARE PRN (10:31)
[2019-06-07] MEDS ORDERED: Sodium Chloride 0.9% 500 ML IV SCH (12:15)
[2019-06-07] MEDS ORDERED: Scopolamine 1.5 mg/72 hour Patch TD SCH (13:00)
--- NOTE | 2019-06-07 14:36 | CON ---
DATE OF CONSULTATION: REASON FOR CONSULTATION: Face fractures. CHIEF COMPLAINT AND HISTORY OF PRESENT ILLNESS: This is a gentleman who had a syncopal episode last night, fell, hit his face and nose, was noted to have nondisplaced bilateral nasal bone fractures, bowing of the nasal septum to the right, and a possible right orbital floor fracture. For these, I was consulted. The patient has no malocclusion or difficulty breathing. No numbness of his face. No visual changes. PHYSICAL EXAMINATION: VITAL SIGNS: The patient's vital signs are stable. GENERAL: He is awake, alert, and oriented x3. He is in no acute distress. HEENT: His oral opening is good. His occlusion is good. His nares are patent bilaterally. He has dried crusted blood in his nares bilaterally. His extraocular movements are intact. Cranial nerve 5 is intact. Cranial nerve 7 is intact. He does have a laceration of his lower lip mucosa. ASSESSMENT: 1. Bilateral nasal bone fracture and nasal septal fracture, all closed. 2. Right orbital floor fracture, closed, nondisplaced. PLAN: Fractures appeared to need no surgical intervention. Recommend Peridex 15 mL swish and spit t.i.d. as well as [place] spray two puffs each nostril t.i.d. Follow up in my clinic in 1 week. Job ID: [id number]
--- NOTE | 2019-06-07 16:38 | CON ---
DATE OF CONSULTATION: 06/06/2019 HISTORY OF PRESENT ILLNESS: Mr. Mathew riggs is a 68-year-old male who presents to the emergency room with a chief complaint of syncope, facial and neck pain. He states that he was in the bathroom and woke up on the floor. Mr. Carmona said that he drank about six nips that night and he did not eat too much and currently taking gabapentin. He feels maybe this is the reason he passed out He states he does have a little unsteady gait and requires a walker. Physical Therapy and Occupational Therapy come to his house to help him with his gait. At the emergency room, the patient's vitals were stable. He was oriented x3 and had a GCS score of 15. He was complaining of headache, neck pain and facial pain due to fall. CURRENT MEDICATIONS: BuSpar, Gabapentin. ALLERGIES: NO KNOWN DRUG ALLERGIES. FAMILY HISTORY: Father from Alzheimer's. Mother is alive and well. SOCIAL HISTORY: Smokes 1 cigarette a day. Drinks about 6 nips daily. Denies illicit drug use. REVIEW OF SYMPTOMS: CONSTITUTIONAL: Denies fever or chills. EARS, NOSE, AND THROAT: Denies change in vision or hearing. Complains of nose pain. CARDIAC: Denies chest pain, shortness of breath, or diaphoresis. PULMONARY: Denies shortness of breath, cough, or hemoptysis. GI: Denies abdominal pain, nausea, vomiting, diarrhea, change in stool formation and consistency. : Denies trouble with urination, frequency of urination, or bloody urine. SKIN: Swollen and bloody nose from his bilateral nares. MUSCULOSKELETAL: As per history of present illness. NEUROLOGICAL: As per history of present illness. PSYCHOLOGICAL: Has some anxiety and depression. Denies behavior changes. PHYSICAL EXAMINATION: VITAL SIGNS: In the ER, blood pressure 122/69, pulse 87, temperature 98.3. HEENT: Pupils are equal. Extraocular movements are intact. Nose is swollen. NECK: Soft, supple. No masses are noted. Slight pain with range of motion. Head has been immobilized with a cervical collar. NEUROLOGICAL: Awake, alert, oriented x3. Memory, attention, fund of knowledge normal. Cranial nerves, grossly intact. Upper extremities, he has good strength in his deltoids, biceps, triceps, wrist extensions, finger extensions, finger intrinsics. Sensory equal bilaterally. Lower extremities, he has good strength, bilateral iliopsoas, quadriceps, hamstrings, anterior tib, EHL, and gastrocnemius. There is no area of dermatomal sensory loss. The toes are downgoing. PLAN: Mr. Carmona noted on EKG in the emergency room with a prolonged QT and with the unknown syncopal event. Recommend cardiac workup. A CT of the brain was done and showed a subarachnoid hemorrhage in the posterior left frontal region. We will get a repeat CT of the head around 5:00 a.m. If the traumatic subarachnoid hemorrhage has not increased in size, we will follow up with a CT head scan in 3 weeks. The bleeding in the brain will require surgical intervention. The patient has a cervical collar on and his cervical CT was negative. His collar could probably come off later today. Job ID: [id number] [facility]
[2019-06-07] MEDS: Chlorhexidine Gluconate 15 ML UDCUP SSP SCH (21:05)
--- NOTE | 2019-06-07 22:14 | PRG ---
DATE OF SERVICE: 06/07/2019 SUBJECTIVE: Mr. Caromna remained in surgical floor. The patient was seen on round this evening. The patient was transferred from [facility] earlier today. The patient reports pain. His pain is well controlled. He has tolerated regular diet. He developed no fever or shortness of breath. He experienced no nausea or vomiting. OBJECTIVE: LUNGS: Clear bilaterally. HEART: Regular rate and rhythm. ABDOMEN: Soft, nondistended. EXTREMITIES: Neurovascularly intact x4. NEUROLOGIC: No focal neurology deficits. ASSESSMENT: 1. Status post ground level fall. 2. Small subarachnoid hemorrhage. 3. Orbital floor fracture and nasal septal fracture. 4. Right index metacarpal fracture. 5. History of anxiety, depression, substance abuse. 6. Hypokalemia, resolved. PLAN: Will be continue supportive care. Continue pain control. Continue DVT prophylaxis. Anticipate discharge home tomorrow. Job ID: [id number]
[2019-06-08] MEDS: Famotidine/PF 20 mg/2ml Vial SLOW IVP SCH ×2 (08:26→20:07)
[2019-06-08] MEDS: Oxazepam 10 MG CAP PO SCH ×2 (08:26→20:07)
[2019-06-08] MEDS: Senokot S 8.6-50 MG TAB PO SCH ×2 (08:26→20:07)
[2019-06-08] MEDS: Folic Acid 1 MG TAB PO SCH (08:26)
[2019-06-08] MEDS: Thiamine 100 MG TAB PO SCH (08:27)
[2019-06-08] MEDS: Polyethylene Glycol 3350 17 GM Packet PO SCH (08:27)
[2019-06-08] MEDS: Gabapentin 300 MG CAP PO SCH ×2 (08:27→20:07)
[2019-06-08] MEDS: Chlorhexidine Gluconate 15 ML UDCUP SSP SCH ×2 (08:27→20:06)
--- NOTE | 2019-06-08 11:59 | PRG ---
DATE OF SERVICE: 06/08/2019 SUBJECTIVE: The patient is currently on the surgical floor. He was admitted after being intoxicated and having a ground level fall, in which he sustained a small subarachnoid hemorrhage, orbital floor fracture, and nasal septal fracture. Due to being discharged today when he was found sitting on the floor in his room after morning rounds, the nurses are unsure if he fell, the patient was unsure, but in light of this fact, we will keep him today and repeat his head CT. The patient's Camilla Coma Scale had returned to 15 as it was prior to this incident. There did not appear to be any evidence of seizure activity. OBJECTIVE: VITAL SIGNS: Temperature is 97.9, heart rate 98, blood pressure 111/66, respirations 20, and oxygen saturation 90% on room air. GENERAL: The patient this morning was sitting at bedside in a chair. He was awake, alert, and conversant. His Camilla Coma Scale is 15. HEENT: Resolving contusions are noted on his face and nasal area. NECK: Nontender. Trachea is midline. CHEST: Clear to auscultation with good inspiratory and expiratory effort. HEART: Regular rate and rhythm. ABDOMEN: Soft, nontender with active bowel sounds. EXTREMITIES: Neurovascularly intact x4. LABORATORY DATA: There are no labs or radiographs reviewed this morning. ASSESSMENT: 1. Status post ground level fall. 2. Small subarachnoid hemorrhage, stable. 3. Orbital floor and nasal septal fractures. 4. History of anxiety, depression, substance abuse, alcoholism. 5. Right index metacarpal fracture. PLAN: Plan will be to keep the patient on observation overnight. Again, we will repeat his head CT this morning, labs to include a prolactin and continue to follow the patient. The original discussion with the patient was he was going to seek home health as he has used the service before in light of this, we may readdress this and have him reconsider inpatient rehab. Job ID: [id number]
[2019-06-08 12:16] LABS: White Blood Cell (WBC) Count 7.6 thou/uL (4.8-10.8)
[2019-06-08 12:25] LABS: #Lymphocytes 1.7 thou/uL (1.20-3.40); #Monocytes 0.7 thou/uL (0.11-0.59); #Neutrophils 5.1 thou/uL (1.40-6.50); %Basophils 0.3 % (0.0-1.0); %Eosinophils 0.2 % (0.0-10.0); %Monocytes 9.7 % (0.0-10.0); %Neutrophils 66.8 % (42.0-75.0); Hemoglobin 10.4 g/dL (14.0-18.0); Hypochromia SLIGHT = 6-15 cells (100X) (0-5/hpf); MDiff Complete? YES; Mean Corpuscular HGB CONC 33.1 g/dL (32.0-36.0); Mean Corpuscular Hemoglobin 32.4 pg (27.0-31.0); Mean Corpuscular Volume 97.9 fL (78.0-98.0); Mean Platelet Volume 9.9 fL (7.4-10.4); Ovalocytes SLIGHT = 2-5 cells (100X) (0-1/hpf); Platelet Count 68 thou/uL (130-400); Platelet Morphology Comment Appears Decreased; RBC Distribution Width 15.2 % (11.5-14.5); Red Blood Cell (RBC) Count 3.19 mill/uL (4.70-6.10)
--- NOTE | 2019-06-08 12:35 | CT ---
CT BRAIN WITHOUT IV CONTRAST: HISTORY: Injury from fall. Prior intracranial hemorrhage. COMPARISON: 06/07/2019 FINDINGS: Again noted is a small focus of hemorrhage in the left posterior frontal parietal region, near the fa lx, stable. No evidence for focal mass or midline shift. No evidence for new hemorrhage. Hemorrhagic changes within the sinuses as well as a comminuted nasal bone fracture are again demonstrated. Mastoi ds remain clear. IMPRESSION: Stable appearing CT brain. No new mass or hemorrhage. Small stable hemorrhage just to the left of the falx in the frontal parietal region. POS: [facility]
[2019-06-08 12:37] LABS: Anion Gap 15 mmol/L (10-20); BUN (Urea Nitrogen) 7 mg/dL (8.4-25.7); Calc. Creatinine Clearance 81 mL/min (70-130); Calcium 8.2 mg/dL (7.8-10.44); Carbon Dioxide 25 mmol/L (23-31); Chloride 100 mmol/L (98-107); Estimated GFR-MDRD Greater than 90; Glucose 107 mg/dL (80-115); Magnesium 1.8 mg/dL (1.6-2.6); Phosphorus 1.6 mg/dL (2.3-4.7); Potassium 3.2 mmol/L (3.5-5.1); Sodium 137 mmol/L (136-145)
[2019-06-08] MEDS ORDERED: Potassium Phosphate 30 MMOL in Sodium Chloride 0.9% 250 ML 250 ML IVPB SCH (12:45)
[2019-06-08] MEDS ORDERED: Magnesium Sulfate 3 GM in Sodium Chloride 0.9% 250 ML 250 ML IVPB SCH (12:45)
--- NOTE | 2019-06-09 00:07 | PRG ---
DATE OF SERVICE: 06/08/2019 SUBJECTIVE: Mr. Carmona remained in surgical floor. The patient was seen on round this evening. The patient reports he has been doing good. Pain is well controlled. He tolerated with his regular diet. OBJECTIVE: VITAL SIGNS: Stable. GENERAL: Currently, the patient is lying in bed comfortable with no acute respiratory distress. LUNGS: Clear bilaterally. HEART: Regular rate and rhythm. ABDOMEN: Soft, nondistended. EXTREMITIES: Neurovascularly intact x4. NEUROLOGY: No focal neurology deficits. ASSESSMENT: 1. Status post ground level fall. 2. Small subarachnoid hemorrhage, stable on clinical setting and repeat CT scan. 3. Orbital floor fracture, nasal septal fracture, conservative treatment. 4. Right index metacarpal fracture, conservative treatment. 5. History of anxiety, depression, substance abuse. 6. Hypokalemia, resolved. PLAN: Continue supportive care. Continue pain control. Continue DVT prophylaxis. The patient wished to go home with home health tomorrow. Job ID: [id number]
[2019-06-09] MEDS: Gabapentin 300 MG CAP PO SCH (08:39)
[2019-06-09] MEDS: Oxazepam 10 MG CAP PO SCH (08:40)
[2019-06-09] MEDS: Folic Acid 1 MG TAB PO SCH (08:40)
[2019-06-09] MEDS: Senokot S 8.6-50 MG TAB PO SCH (08:40)
[2019-06-09] MEDS: Chlorhexidine Gluconate 15 ML UDCUP SSP SCH (08:40)
[2019-06-09] MEDS: Thiamine 100 MG TAB PO SCH (08:40)
[2019-06-09] MEDS: Polyethylene Glycol 3350 17 GM Packet PO SCH (08:41)
[2019-06-09] MEDS: Famotidine/PF 20 mg/2ml Vial SLOW IVP SCH (08:41)
[2019-06-09 11:21] VITALS: BP 127/71; TEMP 99
--- NOTE | 2019-06-09 11:31 | EKG ---
Test Reason : TACHYCARDIA Blood Pressure : / mmHG Vent. Rate : 094 BPM Atrial Rate : 094 BPM P-R Int : 148 ms QRS Dur : 078 ms QT Int : 314 ms P-R-T Axes : 047 -30 015 degrees QTc Int : 392 ms Sinus rhythm with marked sinus arrhythmia Left axis deviation Low voltage QRS Nonspecific T wave abnormality Inferior infarct , age undetermined Abnormal ECG Confirmed by GEORGINA GARCIA ([id number]) on 06/09/2019 11:30:44 AM Referred By: ZEHRA JOSEPH Confirmed By:GEORGINA GARCIA
--- NOTE | 2019-06-09 22:23 | DIS ---
DATE OF ADMISSION: 06/06/2019 DATE OF DISCHARGE: 06/09/2019 ADMISSION DIAGNOSES: 1. Status post unwitnessed fall. 2. Possible syncope. 3. Alcohol intoxication. 4. Small subarachnoid hemorrhage. 5. Orbital floor fracture and nasal septal fracture. 6. Right index metacarpal fracture. 7. History of anxiety, depression, substance abuse, and alcoholism. 8. Hypokalemia. CONSULTATIONS: 1. Neurosurgery, Dr. Sutton. 2. Orthopedics, Dr. Meek. PROCEDURES: None. SUMMARY: The patient is a 68-year-old man who was brought from home after having an unwitnessed fall. He woke up, was able to summon help. He was brought to the emergency department where he underwent evaluation and on examination, he was noted to have the above injuries. Due to his blood alcohol level of 243 and his small intracranial hemorrhage, he was admitted to the [facility] overnight which he did well. The following day, he was able to be moved to the surgical floor. Repeat head CT showed no evolution of his hemorrhage. The following day when he was preparing for discharge, nurses found him sitting on the floor. He is unsure if he fell or not, so he was kept for another 24 hours for observation. Repeat head CT at that time also did not show any changes. The patient would eventually be discharged to inpatient rehab. At the time of discharge, he was working with Physical and Occupational Therapy, he was tolerating a diet. His pain was controlled with nonnarcotic pain medications. The patient will follow up with Dr. Sutton as directed by their clinic and may follow up with Orthopedics as his fracture was treated nonoperatively with just a brace for comfort. Job ID: [id number]
== END 2019-06-09 15:50 | DRG 84 ==
LOC: ERS 16:01 → IMCU/EMU 21:00 → SURG A 06-07 12:02
PROVIDERS: ADMIT Surgery; ATTEND Surgery
PROC: HZ2ZZZZ Detoxification Services for Substance Abuse Treatment (ICD-10-PCS; principal; 2019-06-07)
DX: S06.6X9A Traumatic subarachnoid hemorrhage with loss of consciousness of unspecified duration, initial encounter (principal); R55 Syncope and collapse; S02.31XA Fracture of orbital floor, right side, initial encounter for closed fracture; S02.2XXA Fracture of nasal bones, initial encounter for closed fracture; S62.330A Displaced fracture of neck of second metacarpal bone, right hand, initial encounter for closed fracture; F17.210 Nicotine dependence, cigarettes, uncomplicated; E87.6 Hypokalemia; F41.9 Anxiety disorder, unspecified; F32.9 Major depressive disorder, single episode, unspecified; F19.11 Other psychoactive substance abuse, in remission; F10.129 Alcohol abuse with intoxication, unspecified; W18.30XA Fall on same level, unspecified, initial encounter; Y90.8 Blood alcohol level of 240 mg/100 ml or more; Y92.002 Bathroom of unspecified non-institutional (private) residence as the place of occurrence of the external cause
CPT/HCPCS: 26605; 36415; 36416; 70450; 70486; 72125; 80048; 80053; 80307; 81003; 83735; 84100; 84146; 84484; 85025; 85610; 85730; 93005; 93010; 96360; G0390; J2270; J2405; J3475; J7050; S0028

== ENCOUNTER 2019-07-09 13:10 | Outpatient (CLI) | payer MEDICARE, BC ==
--- NOTE | 2019-07-09 14:05 | CT ---
CT BRAIN NONCONTRAST: DATE: 07/09/2019 HISTORY: 68-year-old male with intracranial hemorrhage. Follow-up. COMPARISON: 06/08/2019 FINDINGS: There is no evidence of acute intra-axial or extra-axial hemorrhage. There is no midline shift or any other mass effect. There is no extra-axial fluid collection. There is no evidence of obstructive hydrocephalus. Calvarium is intact. There is diffuse brain parenchymal volume loss. There are low att enuation areas in the white matter. These are nonspecific, but in a patient of this age, they are probably chronic ischemic white matter changes due to microvascular atherosclerosis. The previously d emonstrated small, approximately 1 cm left paramedian posterior upper frontal hemorrhage, has resolved. There is no subdural, epidural, or subarachnoid, hemorrhage. IMPRESSION: 1) No acute intracranial findings. 2) involutional changes and chronic ischemic white matter changes. 3) interval resolution of the very small focal intra-axial cerebral hemorrhage.
== END 2019-07-09 13:11 | disposition home or self-care (01) ==
LOC: CT 13:10
PROVIDERS: ATTEND Neurological Surgery
DX: I62.00 Nontraumatic subdural hemorrhage, unspecified (principal); I67.82 Cerebral ischemia
CPT/HCPCS: 70450

== ENCOUNTER 2020-07-10 04:19 | Inpatient (IN) | payer MEDICARE, BC ==
[2020-07-10 05:49] LABS: ALT (SGPT) 21 U/L (8-55); AST (SGOT) 62 U/L (5-34); Albumin 2.6 g/dL (3.4-4.8); Alkaline Phosphatase 187 U/L (40-110); Anion Gap 17 mmol/L (10-20); BUN (Urea Nitrogen) 23 mg/dL (8.4-25.7); Calc. Creatinine Clearance 0 mL/min (70-130); Calcium 8.5 mg/dL (7.8-10.44); Carbon Dioxide 23 mmol/L (23-31); Chloride 89 mmol/L (98-107); Globulin 4.5 g/dL (2.4-3.5); Glucose 107 mg/dL (80-115); Potassium 3.9 mmol/L (3.5-5.1); Protein, Total 7.1 g/dL (5.8-8.1); Sodium 125 mmol/L (136-145)
[2020-07-10 06:11] LABS: Hemoglobin 10.4 g/dL (14.0-18.0); Mean Corpuscular HGB CONC 33.5 g/dL (32.0-36.0); Mean Corpuscular Hemoglobin 39.4 pg (27.0-31.0); Platelet Count 297 thou/uL (130-400); RBC Distribution Width 15.5 % (11.5-14.5); Red Blood Cell (RBC) Count 2.64 mill/uL (4.70-6.10); White Blood Cell (WBC) Count 26.9 thou/uL (4.8-10.8)
[2020-07-10 06:24] LABS: Band 10 % (5-11); Lymphocytes 5 % (21-51); MDiff Complete? YES; Monocytes 8 % (0-10); Neutrophil 77 % (42-75)
[2020-07-10 07:39] LABS: INR-International Normal Ratio 1.5; PTT 32.2 sec (22.9-36.1); Prothrombin Time 18.6 sec (12.0-14.7)
[2020-07-10] MEDS: Sodium Chloride 0.9% 1,000 ML IV SCH ×2 (09:41→23:00)
[2020-07-10] MEDS ORDERED: Lidocaine 1% (PF) 30 ML VIAL ONE (11:05)
[2020-07-10] MEDS ORDERED: Sodium Bicarb 50 MEQ/50 ML Abboject 8.4% SYRINGE IVP SCH (11:15)
[2020-07-10] MEDS ORDERED: Lidocaine 1% (PF) 30 ML VIAL FS SCH (11:15)
[2020-07-10] MEDS: Thiamine 100 MG TAB PO SCH (13:09)
[2020-07-10 14:28] LABS: SARS-CoV-2 PCR by NAA Not Detected (NotDetected)
[2020-07-10] MEDS: Gabapentin 300 MG CAP PO SCH ×2 (15:22→21:16)
[2020-07-10 16:23] LABS: RBC Count-Automated (BF) 50 /cu.mm; WBC/Nucleated-Auto (BF) 70 uL
[2020-07-10 16:30] LABS: BF Color Colorless; Body Fluid Source Ascites Body Fluid; Clarity Clear (Clear); Tube # EDTA
[2020-07-10 16:56] LABS: BF Segmented Neutrophils 31 %; Cell Count Non Hematic 33 %; Lymphocytes 36 %
[2020-07-10 18:23] LABS: Bacteria/HPF 1+ HPF (None Seen); Bilirubin 1+ (Negative); Blood, Urine 2+ (Negative); Clarity Clear (Clear); Glucose, Urine (Dipstick) Normal (Negative); Ketone, Urine Negative (Negative); Leukocyte Negative Leu/uL (Negative); Nitrite Negative (Negative); Protein, Urine (Dipstick) 10 mg/dL (Neg-Trace); Specific Gravity, Urine 1.019 (1.002-1.036); Squamous Epithelial 0-3 HPF (0-3); Urobilinogen 6 mg/dL (Less than 2)
[2020-07-10 18:24] LABS: Urine Culture Reflex Yes Yes
[2020-07-10] MEDS: Albumin 25% 25 GM/100 ML BOT IVPB SCH ×2 (18:24→23:54)
[2020-07-10 18:46] LABS: Hemoglobin 9.2 g/dL (14.0-18.0); Mean Corpuscular HGB CONC 35.1 g/dL (32.0-36.0); Mean Corpuscular Hemoglobin 40.9 pg (27.0-31.0); Mean Platelet Volume 7.6 fL (7.4-10.4); Platelet Count 254 thou/uL (130-400); RBC Distribution Width 15.5 % (11.5-14.5); Red Blood Cell (RBC) Count 2.25 mill/uL (4.70-6.10); White Blood Cell (WBC) Count 21.2 thou/uL (4.8-10.8)
[2020-07-10 19:01] LABS: Anion Gap 18 mmol/L (10-20); BUN (Urea Nitrogen) 26 mg/dL (8.4-25.7); Calc. Creatinine Clearance 50 mL/min (70-130); Calcium 7.6 mg/dL (7.8-10.44); Carbon Dioxide 19 mmol/L (23-31); Chloride 91 mmol/L (98-107); Glucose 108 mg/dL (80-115); Potassium 3.6 mmol/L (3.5-5.1); Sodium 124 mmol/L (136-145)
[2020-07-10 19:11] LABS: Band 17 % (5-11); Lymphocytes 7 % (21-51); MDiff Complete? YES; Monocytes 4 % (0-10); Neutrophil 70 % (42-75); Reactive Lymphocytes 2 % (0-10)
[2020-07-10] MEDS: cefTRIAXone\\ROCEPHIN 1 GM in Sodium Chloride 0.9% 100 ML IVPB SCH (21:15)
[2020-07-10] MEDS: Midodrine HCl 5 MG TAB PO SCH (21:16)
[2020-07-10] MEDS: Octreotide Acetate 50 MCG in Sodium Chloride 0.9% 50 ML IVPB SCH (22:45)
[2020-07-11] MEDS: Albumin 25% 25 GM/100 ML BOT IVPB SCH ×3 (05:22→16:33)
[2020-07-11] MEDS: Octreotide Acetate 50 MCG in Sodium Chloride 0.9% 50 ML IVPB SCH ×3 (05:31→21:51)
[2020-07-11 05:56] LABS: #Eosinphils 0.1 thou/uL (0.0-0.7); #Lymphocytes 1.7 thou/uL (1.20-3.40); #Monocytes 1.8 thou/uL (0.11-0.59); #Neutrophils 15.5 thou/uL (1.40-6.50); %Basophils 0.1 % (0.0-1.0); %Eosinophils 0.3 % (0.0-10.0); %Lymphocytes 8.9 % (21.0-51.0); %Monocytes 9.4 % (0.0-10.0); %Neutrophils 81.3 % (42.0-75.0); Hemoglobin 8.4 g/dL (14.0-18.0); Mean Corpuscular HGB CONC 33.5 g/dL (32.0-36.0); Mean Corpuscular Hemoglobin 39.6 pg (27.0-31.0); Mean Platelet Volume 7.9 fL (7.4-10.4); Platelet Count 231 thou/uL (130-400); RBC Distribution Width 15.5 % (11.5-14.5); Red Blood Cell (RBC) Count 2.11 mill/uL (4.70-6.10)
[2020-07-11 06:22] LABS: Anion Gap 17 mmol/L (10-20); BUN (Urea Nitrogen) 26 mg/dL (8.4-25.7); Calc. Creatinine Clearance 52 mL/min (70-130); Calcium 7.7 mg/dL (7.8-10.44); Carbon Dioxide 20 mmol/L (23-31); Chloride 94 mmol/L (98-107); Glucose 107 mg/dL (80-115); Magnesium 1.8 mg/dL (1.6-2.6); Potassium 3.9 mmol/L (3.5-5.1); Sodium 127 mmol/L (136-145)
[2020-07-11] MEDS ORDERED: Sodium Chloride 0.65% Nasal 44 ML BOT EA NARE PRN (08:13)
[2020-07-11] MEDS ORDERED: Cepastat Lozenges 1 LOZ PO PRN (08:13)
[2020-07-11] MEDS ORDERED: Bisacodyl 5 MG TAB PO PRN (08:13)
[2020-07-11] MEDS ORDERED: Ondansetron ODT 4 MG TAB PO PRN (08:13)
[2020-07-11] MEDS ORDERED: Calcium Carbonate 500 MG ChewTAB PO PRN (08:13)
[2020-07-11] MEDS ORDERED: Senokot S 8.6-50 MG TAB PO PRN (08:13)
[2020-07-11] MEDS ORDERED: Loperamide HCl 2 MG CAP PO PRN (08:13)
[2020-07-11] MEDS ORDERED: hydrALAZINE 20 MG/ML VIAL SLOW IVP PRN (08:13)
[2020-07-11] MEDS ORDERED: GUAIFENESIN SF SOLN 200 MG/10 ML UDCUP PO PRN (08:13)
[2020-07-11] MEDS ORDERED: Loratadine 10 MG TAB PO PRN (08:13)
[2020-07-11] MEDS: Gabapentin 300 MG CAP PO SCH ×3 (08:50→20:01)
[2020-07-11] MEDS: Thiamine 100 MG TAB PO SCH (08:50)
[2020-07-11] MEDS: Midodrine HCl 5 MG TAB PO SCH ×3 (08:50→20:01)
[2020-07-11] MEDS: Multivitamin W/ Minerals 1 TAB PO SCH (08:51)
[2020-07-11] MEDS: Folic Acid 1 MG TAB PO SCH (08:51)
[2020-07-11] MEDS: Cyanocobalamin (Vitamin B-12) 1,000 MCG TAB PO SCH (08:51)
[2020-07-11] MEDS: Sodium Chloride 0.9% 1,000 ML IV SCH (12:04)
[2020-07-11] MEDS: cefTRIAXone\\ROCEPHIN 1 GM in Sodium Chloride 0.9% 100 ML IVPB SCH (19:50)
[2020-07-12 04:21] LABS: #Eosinphils 0.1 thou/uL (0.0-0.7); #Lymphocytes 2.1 thou/uL (1.20-3.40); #Monocytes 1.7 thou/uL (0.11-0.59); #Neutrophils 13.9 thou/uL (1.40-6.50); %Eosinophils 0.4 % (0.0-10.0); %Lymphocytes 11.6 % (21.0-51.0); %Monocytes 9.8 % (0.0-10.0); %Neutrophils 78.2 % (42.0-75.0); Mean Corpuscular HGB CONC 34.9 g/dL (32.0-36.0); Mean Corpuscular Hemoglobin 41.2 pg (27.0-31.0); Mean Platelet Volume 7.8 fL (7.4-10.4); Platelet Count 220 thou/uL (130-400); RBC Distribution Width 15.3 % (11.5-14.5); Red Blood Cell (RBC) Count 2.18 mill/uL (4.70-6.10); White Blood Cell (WBC) Count 17.8 thou/uL (4.8-10.8)
[2020-07-12 04:42] LABS: ALT (SGPT) 10 U/L (8-55); AST (SGOT) 42 U/L (5-34); Alkaline Phosphatase 108 U/L (40-110); Anion Gap 13 mmol/L (10-20); BUN (Urea Nitrogen) 28 mg/dL (8.4-25.7); Bilirubin, Total 4.8 mg/dL (0.2-1.2); Calc. Creatinine Clearance 55 mL/min (70-130); Calcium 8.2 mg/dL (7.8-10.44); Carbon Dioxide 24 mmol/L (23-31); Chloride 97 mmol/L (98-107); Glucose 127 mg/dL (80-115); Magnesium 1.9 mg/dL (1.6-2.6); Phosphorus 2.6 mg/dL (2.3-4.7); Potassium 3.8 mmol/L (3.5-5.1); Sodium 130 mmol/L (136-145)
[2020-07-12 05:02] LABS: HBCM Index 0.11 S/CO (0-0.79); HBSAg Index 0.24 S/CO (0-0.99); Hep A IgM AB Non-Reactive (NonReactive); Hep A IgM S/CO 0.17 S/CO (0-0.79); Hep B Surf Ag Non-Reactive S/CO (NonReactive); Hep C IgG Ab Non-Reactive (NonReactive); Hep C Index 0.14 S/CO (0-0.79); Hepatitis B Core IgM Abs Non-Reactive (NonReactive)
[2020-07-12] MEDS: Sodium Chloride 0.9% 1,000 ML IV SCH (05:39)
[2020-07-12] MEDS: Octreotide Acetate 50 MCG in Sodium Chloride 0.9% 50 ML IVPB SCH ×3 (06:26→22:40)
[2020-07-12] MEDS ORDERED: Albumin 25% 25 GM/100 ML BOT IVPB SCH (06:49)
[2020-07-12] MEDS: Folic Acid 1 MG TAB PO SCH (08:15)
[2020-07-12] MEDS: Midodrine HCl 5 MG TAB PO SCH ×3 (08:16→20:39)
[2020-07-12] MEDS: Thiamine 100 MG TAB PO SCH (08:16)
[2020-07-12] MEDS: Cyanocobalamin (Vitamin B-12) 1,000 MCG TAB PO SCH (08:16)
[2020-07-12] MEDS: Multivitamin W/ Minerals 1 TAB PO SCH (08:16)
[2020-07-12] MEDS: Gabapentin 100 MG CAP PO SCH ×3 (08:16→20:40)
[2020-07-12] MEDS: Albumin 25% 25 GM/100 ML BOT IVPB SCH ×2 (12:43→17:14)
[2020-07-12] MEDS: cefTRIAXone\\ROCEPHIN 1 GM in Sodium Chloride 0.9% 100 ML IVPB SCH (20:42)
[2020-07-13] MEDS: Albumin 25% 25 GM/100 ML BOT IVPB SCH ×2 (01:13→05:11)
[2020-07-13] MEDS ORDERED: Melatonin 3 MG TAB PO SCH (01:15)
[2020-07-13] MEDS: Octreotide Acetate 50 MCG in Sodium Chloride 0.9% 50 ML IVPB SCH ×3 (06:03→22:03)
[2020-07-13 06:18] LABS: #Eosinphils 0.1 thou/uL (0.0-0.7); #Lymphocytes 2.3 thou/uL (1.20-3.40); #Monocytes 1.8 thou/uL (0.11-0.59); #Neutrophils 12.6 thou/uL (1.40-6.50); %Basophils 0.1 % (0.0-1.0); %Eosinophils 0.4 % (0.0-10.0); %Lymphocytes 13.9 % (21.0-51.0); %Monocytes 10.6 % (0.0-10.0); %Neutrophils 75.1 % (42.0-75.0); Hemoglobin 8.8 g/dL (14.0-18.0); Mean Corpuscular HGB CONC 34.3 g/dL (32.0-36.0); Mean Corpuscular Hemoglobin 40.5 pg (27.0-31.0); Mean Platelet Volume 7.5 fL (7.4-10.4); Platelet Count 199 thou/uL (130-400); RBC Distribution Width 15.5 % (11.5-14.5); Red Blood Cell (RBC) Count 2.17 mill/uL (4.70-6.10); White Blood Cell (WBC) Count 16.8 thou/uL (4.8-10.8)
[2020-07-13 06:42] LABS: ALT (SGPT) 10 U/L (8-55); AST (SGOT) 34 U/L (5-34); Alkaline Phosphatase 83 U/L (40-110); Anion Gap 17 mmol/L (10-20); BUN (Urea Nitrogen) 22 mg/dL (8.4-25.7); Bilirubin, Total 4.3 mg/dL (0.2-1.2); Calc. Creatinine Clearance 63 mL/min (70-130); Calcium 8.6 mg/dL (7.8-10.44); Carbon Dioxide 22 mmol/L (23-31); Chloride 97 mmol/L (98-107); Globulin 2.4 g/dL (2.4-3.5); Glucose 139 mg/dL (80-115); Potassium 3.5 mmol/L (3.5-5.1); Protein, Total 6.4 g/dL (5.8-8.1); Sodium 132 mmol/L (136-145)
[2020-07-13] MEDS: Gabapentin 100 MG CAP PO SCH ×3 (09:29→20:43)
[2020-07-13] MEDS: Midodrine HCl 5 MG TAB PO SCH ×3 (09:29→20:43)
[2020-07-13] MEDS: Multivitamin W/ Minerals 1 TAB PO SCH ×2 (09:32→14:36)
[2020-07-13] MEDS: Cyanocobalamin (Vitamin B-12) 1,000 MCG TAB PO SCH ×2 (09:33→14:40)
[2020-07-13] MEDS ORDERED: Lidocaine 1% PF 5 ML VIAL ONE (13:04)
[2020-07-13] MEDS ORDERED: Sodium Bicarbonate 2.5 MEQ/5 ML VIAL ONE (13:04)
[2020-07-13] MEDS: Thiamine 100 MG TAB PO SCH (14:39)
[2020-07-13] MEDS: Folic Acid 1 MG TAB PO SCH (14:39)
[2020-07-13] MEDS: cefTRIAXone\\ROCEPHIN 1 GM in Sodium Chloride 0.9% 100 ML IVPB SCH (20:44)
[2020-07-14] MEDS: Octreotide Acetate 50 MCG in Sodium Chloride 0.9% 50 ML IVPB SCH ×3 (06:25→22:48)
[2020-07-14] MEDS: Gabapentin 100 MG CAP PO SCH ×3 (08:22→20:40)
[2020-07-14] MEDS: Cyanocobalamin (Vitamin B-12) 1,000 MCG TAB PO SCH (08:22)
[2020-07-14] MEDS: Thiamine 100 MG TAB PO SCH (08:22)
[2020-07-14] MEDS: Multivitamin W/ Minerals 1 TAB PO SCH (08:23)
[2020-07-14] MEDS: Midodrine HCl 5 MG TAB PO SCH ×3 (08:23→20:41)
[2020-07-14] MEDS: Folic Acid 1 MG TAB PO SCH (08:23)
[2020-07-14] MEDS: cefTRIAXone\\ROCEPHIN 1 GM in Sodium Chloride 0.9% 100 ML IVPB SCH (20:40)
[2020-07-15] MEDS: Octreotide Acetate 50 MCG in Sodium Chloride 0.9% 50 ML IVPB SCH ×2 (06:11→16:42)
[2020-07-15 06:26] LABS: #Basophils 0.1 thou/uL (0.0-0.2); #Eosinphils 0.1 thou/uL (0.0-0.7); #Lymphocytes 2.7 thou/uL (1.20-3.40); #Monocytes 1.9 thou/uL (0.11-0.59); #Neutrophils 14.2 thou/uL (1.40-6.50); %Basophils 0.3 % (0.0-1.0); %Eosinophils 0.8 % (0.0-10.0); %Lymphocytes 14.3 % (21.0-51.0); %Monocytes 10.1 % (0.0-10.0); %Neutrophils 74.5 % (42.0-75.0); Mean Corpuscular HGB CONC 33.2 g/dL (32.0-36.0); Mean Corpuscular Hemoglobin 40.1 pg (27.0-31.0); Mean Platelet Volume 8.2 fL (7.4-10.4); Platelet Count 220 thou/uL (130-400); RBC Distribution Width 15.4 % (11.5-14.5); Red Blood Cell (RBC) Count 2.48 mill/uL (4.70-6.10)
[2020-07-15 06:55] LABS: ALT (SGPT) 15 U/L (8-55); AST (SGOT) 44 U/L (5-34); Alkaline Phosphatase 106 U/L (40-110); Anion Gap 13 mmol/L (10-20); BUN (Urea Nitrogen) 17 mg/dL (8.4-25.7); Bilirubin, Total 3.8 mg/dL (0.2-1.2); Calc. Creatinine Clearance 68 mL/min (70-130); Calcium 7.9 mg/dL (7.8-10.44); Carbon Dioxide 23 mmol/L (23-31); Chloride 100 mmol/L (98-107); Globulin 2.6 g/dL (2.4-3.5); Glucose 176 mg/dL (80-115); Potassium 3.3 mmol/L (3.5-5.1); Protein, Total 5.6 g/dL (5.8-8.1); Sodium 133 mmol/L (136-145)
[2020-07-15] MEDS: Multivitamin W/ Minerals 1 TAB PO SCH (08:27)
[2020-07-15] MEDS: Cyanocobalamin (Vitamin B-12) 1,000 MCG TAB PO SCH (08:27)
[2020-07-15] MEDS: Midodrine HCl 5 MG TAB PO SCH ×3 (08:27→21:16)
[2020-07-15] MEDS: Folic Acid 1 MG TAB PO SCH (08:27)
[2020-07-15] MEDS: Gabapentin 100 MG CAP PO SCH ×3 (08:59→21:16)
[2020-07-15] MEDS: Ondansetron PF 4 MG/2 ML Vial IVP PRN (09:08)
[2020-07-15] MEDS: Thiamine 100 MG TAB PO SCH (09:20)
[2020-07-15] MEDS ORDERED: Sodium Chloride 0.9% 10 ML ONE (09:30)
[2020-07-15] MEDS ORDERED: Sodium Bicarbonate 2.5 MEQ/5 ML VIAL ONE (09:30)
[2020-07-15] MEDS ORDERED: Lidocaine 1% PF 5 ML VIAL ONE (09:31)
[2020-07-15] MEDS: cefTRIAXone\\ROCEPHIN 1 GM in Sodium Chloride 0.9% 100 ML IVPB SCH (21:15)
[2020-07-16 06:36] LABS: ALT (SGPT) 16 U/L (8-55); AST (SGOT) 47 U/L (5-34); Albumin 2.7 g/dL (3.4-4.8); Alkaline Phosphatase 112 U/L (40-110); Anion Gap 13 mmol/L (10-20); BUN (Urea Nitrogen) 18 mg/dL (8.4-25.7); Bilirubin, Total 3.9 mg/dL (0.2-1.2); Calc. Creatinine Clearance 64 mL/min (70-130); Calcium 7.6 mg/dL (7.8-10.44); Carbon Dioxide 23 mmol/L (23-31); Chloride 98 mmol/L (98-107); Globulin 2.7 g/dL (2.4-3.5); Glucose 141 mg/dL (80-115); Potassium 3.4 mmol/L (3.5-5.1); Protein, Total 5.4 g/dL (5.8-8.1); Sodium 131 mmol/L (136-145)
[2020-07-16 06:39] LABS: Eosinophils 2 % (0-10); Hemoglobin 9.9 g/dL (14.0-18.0); Lymphocytes 9 % (21-51); MDiff Complete? YES; Mean Corpuscular HGB CONC 32.2 g/dL (32.0-36.0); Mean Corpuscular Hemoglobin 38.1 pg (27.0-31.0); Mean Platelet Volume 8.1 fL (7.4-10.4); Monocytes 6 % (0-10); Neutrophil 83 % (42-75); Platelet Count 211 thou/uL (130-400); Platelet Morphology Comment Appears Adequate; RBC Distribution Width 15.2 % (11.5-14.5); Red Blood Cell (RBC) Count 2.61 mill/uL (4.70-6.10); White Blood Cell (WBC) Count 22.4 thou/uL (4.8-10.8)
[2020-07-16] MEDS: Folic Acid 1 MG TAB PO SCH (09:35)
[2020-07-16] MEDS: Cefepime 2 GM in Sodium Chloride 0.9% 100 ML IVPB SCH ×2 (09:35→20:40)
[2020-07-16] MEDS: Multivitamin W/ Minerals 1 TAB PO SCH (09:35)
[2020-07-16] MEDS: Cyanocobalamin (Vitamin B-12) 1,000 MCG TAB PO SCH (09:35)
[2020-07-16] MEDS: Midodrine HCl 5 MG TAB PO SCH ×3 (09:35→20:40)
[2020-07-16] MEDS: Gabapentin 100 MG CAP PO SCH ×3 (09:46→20:41)
[2020-07-16] MEDS: Thiamine 100 MG TAB PO SCH (09:53)
[2020-07-17 03:14] LABS: Bacteria/HPF None Seen HPF (None Seen); Bilirubin Negative (Negative); Blood, Urine 1+ (Negative); Clarity Clear (Clear); Glucose, Urine (Dipstick) Normal (Negative); Ketone, Urine Negative (Negative); Leukocyte Negative Leu/uL (Negative); Nitrite Negative (Negative); Protein, Urine (Dipstick) 20 mg/dL (Neg-Trace); RBC/HPF 0-3 HPF (0-3); Squamous Epithelial 0-3 HPF (0-3); Urobilinogen Normal mg/dL (Less than 2); pH, Urine 5.5 (5.0-9.0)
[2020-07-17 03:16] LABS: Urine Culture Reflex Yes Yes
[2020-07-17 06:31] LABS: Band 2 % (5-11); Eosinophils 2 % (0-10); Hemoglobin 10.1 g/dL (14.0-18.0); Hypochromia SLIGHT = 6-15 cells (100X) (0-5/hpf); Lymphocytes 10 % (21-51); MDiff Complete? YES; Macrocytosis SLIGHT = 6-15 cells (100X) (0-5/hpf); Mean Corpuscular HGB CONC 33.5 g/dL (32.0-36.0); Mean Corpuscular Hemoglobin 39.7 pg (27.0-31.0); Monocytes 5 % (0-10); Neutrophil 81 % (42-75); Platelet Count 173 thou/uL (130-400); Platelet Morphology Comment Appears Adequate; Red Blood Cell (RBC) Count 2.54 mill/uL (4.70-6.10)
[2020-07-17 06:40] LABS: ALT (SGPT) 16 U/L (8-55); AST (SGOT) 48 U/L (5-34); Albumin 2.3 g/dL (3.4-4.8); Alkaline Phosphatase 113 U/L (40-110); Anion Gap 13 mmol/L (10-20); BUN (Urea Nitrogen) 25 mg/dL (8.4-25.7); Bilirubin, Total 5.2 mg/dL (0.2-1.2); CRP (Inflammatory) 3.87 mg/dL (= or < 0.5); Calc. Creatinine Clearance 63 mL/min (70-130); Calcium 7.6 mg/dL (7.8-10.44); Carbon Dioxide 20 mmol/L (23-31); Chloride 101 mmol/L (98-107); Glucose 125 mg/dL (80-115); Protein, Total 5.3 g/dL (5.8-8.1); Sodium 130 mmol/L (136-145)
[2020-07-17] MEDS: Multivitamin W/ Minerals 1 TAB PO SCH (10:12)
[2020-07-17] MEDS: Cyanocobalamin (Vitamin B-12) 1,000 MCG TAB PO SCH (10:12)
[2020-07-17] MEDS: Thiamine 100 MG TAB PO SCH (10:12)
[2020-07-17] MEDS: Cefepime 2 GM in Sodium Chloride 0.9% 100 ML IVPB SCH ×2 (10:12→21:08)
[2020-07-17] MEDS: Midodrine HCl 5 MG TAB PO SCH ×3 (10:13→21:11)
[2020-07-17] MEDS: Gabapentin 100 MG CAP PO SCH ×3 (10:13→21:10)
[2020-07-17] MEDS: Folic Acid 1 MG TAB PO SCH (10:13)
[2020-07-18] MEDS: Multivitamin W/ Minerals 1 TAB PO SCH (08:38)
[2020-07-18] MEDS: Thiamine 100 MG TAB PO SCH (08:38)
[2020-07-18] MEDS: Folic Acid 1 MG TAB PO SCH (08:38)
[2020-07-18] MEDS: Midodrine HCl 5 MG TAB PO SCH ×3 (08:38→20:32)
[2020-07-18] MEDS: Cyanocobalamin (Vitamin B-12) 1,000 MCG TAB PO SCH (08:39)
[2020-07-18] MEDS: Gabapentin 100 MG CAP PO SCH ×3 (08:39→20:32)
[2020-07-18 15:24] LABS: Hemoglobin 9.5 g/dL (14.0-18.0); Mean Corpuscular HGB CONC 34.4 g/dL (32.0-36.0); Mean Corpuscular Hemoglobin 40.1 pg (27.0-31.0); Mean Platelet Volume 8.4 fL (7.4-10.4); Platelet Count 200 thou/uL (130-400); Red Blood Cell (RBC) Count 2.38 mill/uL (4.70-6.10); White Blood Cell (WBC) Count 25.1 thou/uL (4.8-10.8)
[2020-07-18 15:41] LABS: Anisocytosis SLIGHT = 6-15 cells (100X) (0-5/hpf); Band 7 % (5-11); Lymphocytes 9 % (21-51); MDiff Complete? YES; Macrocytosis SLIGHT = 6-15 cells (100X) (0-5/hpf); Monocytes 2 % (0-10); Neutrophil 81 % (42-75); Platelet Morphology Comment Appears Adequate; Polychromasia SLIGHT = 2-3 cells (100X) (0-2/hpf); Reactive Lymphocytes 1 % (0-10); Target Cells SLIGHT = 2-5 cells (100X) (0-1/hpf)
[2020-07-18 16:02] LABS: ALT (SGPT) 17 U/L (8-55); AST (SGOT) 47 U/L (5-34); Albumin 2.5 g/dL (3.4-4.8); Alkaline Phosphatase 120 U/L (40-110); Anion Gap 14 mmol/L (10-20); BUN (Urea Nitrogen) 37 mg/dL (8.4-25.7); Bilirubin, Total 4.9 mg/dL (0.2-1.2); Calc. Creatinine Clearance 40 mL/min (70-130); Calcium 7.7 mg/dL (7.8-10.44); Carbon Dioxide 21 mmol/L (23-31); Chloride 101 mmol/L (98-107); Glucose 136 mg/dL (80-115); Potassium 3.7 mmol/L (3.5-5.1); Protein, Total 5.5 g/dL (5.8-8.1); Sodium 132 mmol/L (136-145)
[2020-07-19 06:13] LABS: #Basophils 0.1 thou/uL (0.0-0.2); #Eosinphils 0.3 thou/uL (0.0-0.7); #Lymphocytes 2.7 thou/uL (1.20-3.40); #Monocytes 2.5 thou/uL (0.11-0.59); #Neutrophils 17.2 thou/uL (1.40-6.50); %Basophils 0.4 % (0.0-1.0); %Eosinophils 1.5 % (0.0-10.0); %Lymphocytes 11.8 % (21.0-51.0); %Monocytes 10.9 % (0.0-10.0); %Neutrophils 75.4 % (42.0-75.0); Hemoglobin 9.3 g/dL (14.0-18.0); Mean Corpuscular HGB CONC 32.6 g/dL (32.0-36.0); Mean Corpuscular Hemoglobin 37.8 pg (27.0-31.0); Mean Platelet Volume 8.6 fL (7.4-10.4); Platelet Count 199 thou/uL (130-400); RBC Distribution Width 15.3 % (11.5-14.5); Red Blood Cell (RBC) Count 2.47 mill/uL (4.70-6.10); White Blood Cell (WBC) Count 22.9 thou/uL (4.8-10.8)
[2020-07-19 06:34] LABS: ALT (SGPT) 16 U/L (8-55); AST (SGOT) 45 U/L (5-34); Albumin 2.4 g/dL (3.4-4.8); Alkaline Phosphatase 119 U/L (40-110); Anion Gap 14 mmol/L (10-20); BUN (Urea Nitrogen) 40 mg/dL (8.4-25.7); Bilirubin, Total 4.1 mg/dL (0.2-1.2); Calc. Creatinine Clearance 36 mL/min (70-130); Calcium 7.5 mg/dL (7.8-10.44); Carbon Dioxide 21 mmol/L (23-31); Chloride 98 mmol/L (98-107); Glucose 134 mg/dL (80-115); Potassium 3.5 mmol/L (3.5-5.1); Protein, Total 5.4 g/dL (5.8-8.1); Sodium 129 mmol/L (136-145)
[2020-07-19] MEDS: Cyanocobalamin (Vitamin B-12) 1,000 MCG TAB PO SCH (08:39)
[2020-07-19] MEDS: Folic Acid 1 MG TAB PO SCH (08:39)
[2020-07-19] MEDS: Gabapentin 100 MG CAP PO SCH ×3 (08:39→21:39)
[2020-07-19] MEDS: Midodrine HCl 5 MG TAB PO SCH ×3 (08:39→21:39)
[2020-07-19] MEDS: Multivitamin W/ Minerals 1 TAB PO SCH (08:39)
[2020-07-19] MEDS: Thiamine 100 MG TAB PO SCH (08:43)
[2020-07-19] MEDS: Albumin 25% 25 GM/100 ML BOT IVPB SCH (21:40)
[2020-07-20] MEDS: Albumin 25% 25 GM/100 ML BOT IVPB SCH ×4 (03:54→20:18)
[2020-07-20 06:30] LABS: #Eosinphils 0.2 thou/uL (0.0-0.7); #Lymphocytes 2.8 thou/uL (1.20-3.40); #Monocytes 1.9 thou/uL (0.11-0.59); #Neutrophils 14.4 thou/uL (1.40-6.50); %Basophils 0.2 % (0.0-1.0); %Eosinophils 0.9 % (0.0-10.0); %Lymphocytes 14.4 % (21.0-51.0); %Monocytes 9.9 % (0.0-10.0); %Neutrophils 74.6 % (42.0-75.0); Hemoglobin 7.9 g/dL (14.0-18.0); Mean Corpuscular HGB CONC 33.9 g/dL (32.0-36.0); Mean Platelet Volume 8.8 fL (7.4-10.4); Platelet Count 180 thou/uL (130-400); RBC Distribution Width 15.1 % (11.5-14.5); Red Blood Cell (RBC) Count 2.02 mill/uL (4.70-6.10); White Blood Cell (WBC) Count 19.3 thou/uL (4.8-10.8)
[2020-07-20 06:53] LABS: ALT (SGPT) 15 U/L (8-55); AST (SGOT) 38 U/L (5-34); Albumin 2.8 g/dL (3.4-4.8); Alkaline Phosphatase 107 U/L (40-110); Anion Gap 12 mmol/L (10-20); BUN (Urea Nitrogen) 43 mg/dL (8.4-25.7); Bilirubin, Total 3.3 mg/dL (0.2-1.2); Calc. Creatinine Clearance 37 mL/min (70-130); Calcium 7.5 mg/dL (7.8-10.44); Carbon Dioxide 22 mmol/L (23-31); Chloride 97 mmol/L (98-107); Globulin 2.5 g/dL (2.4-3.5); Glucose 129 mg/dL (80-115); Potassium 3.5 mmol/L (3.5-5.1); Protein, Total 5.3 g/dL (5.8-8.1); Sodium 127 mmol/L (136-145)
[2020-07-20] MEDS: Folic Acid 1 MG TAB PO SCH (08:20)
[2020-07-20] MEDS: Gabapentin 100 MG CAP PO SCH ×3 (08:20→21:13)
[2020-07-20] MEDS: Multivitamin W/ Minerals 1 TAB PO SCH (08:20)
[2020-07-20] MEDS: Cyanocobalamin (Vitamin B-12) 1,000 MCG TAB PO SCH (08:20)
[2020-07-20] MEDS: Thiamine 100 MG TAB PO SCH (08:20)
[2020-07-20] MEDS: Midodrine HCl 5 MG TAB PO SCH ×3 (08:21→21:13)
[2020-07-20] MEDS: Ergocalciferol 1.25 MG(50,000 UNITS) CAP PO SCH (11:59)
[2020-07-20] MEDS ORDERED: Megestrol Acetate 40 MG TAB PO SCH (13:15)
[2020-07-20] MEDS: Ondansetron PF 4 MG/2 ML Vial IVP PRN (14:43)
[2020-07-20] MEDS ORDERED: Promethazine HCl 25 MG/ML VIAL IM PRN (16:37)
[2020-07-20] MEDS ORDERED: guaiFENesin ER 600 MG TAB PO SCH (16:45)
[2020-07-20] MEDS ORDERED: Promethazine HCl 25 MG in Sodium Chloride 0.9% 50 ML IVPB PRN (17:23)
[2020-07-20] MEDS: Megestrol Acetate 40 MG TAB PO SCH (21:13)
[2020-07-20 21:32] LABS: Hemoglobin 8.3 g/dL (14.0-18.0); Mean Corpuscular HGB CONC 34.3 g/dL (32.0-36.0); Mean Corpuscular Hemoglobin 39.2 pg (27.0-31.0); Mean Platelet Volume 8.7 fL (7.4-10.4); Platelet Count 193 thou/uL (130-400); RBC Distribution Width 14.9 % (11.5-14.5); Red Blood Cell (RBC) Count 2.12 mill/uL (4.70-6.10)
[2020-07-20 21:46] LABS: Band 7 % (5-11); Hypochromia SLIGHT = 6-15 cells (100X) (0-5/hpf); Lymphocytes 6 % (21-51); MDiff Complete? YES; Macrocytosis SLIGHT = 6-15 cells (100X) (0-5/hpf); Monocytes 15 % (0-10); Neutrophil 72 % (42-75); Platelet Morphology Comment Appears Adequate
[2020-07-20 21:50] LABS: Anion Gap 17 mmol/L (10-20); BUN (Urea Nitrogen) 43 mg/dL (8.4-25.7); Calc. Creatinine Clearance 36 mL/min (70-130); Calcium 8.1 mg/dL (7.8-10.44); Carbon Dioxide 21 mmol/L (23-31); Chloride 96 mmol/L (98-107); Glucose 140 mg/dL (80-115); Potassium 3.5 mmol/L (3.5-5.1); Sodium 130 mmol/L (136-145)
[2020-07-21 06:19] LABS: Hemoglobin 7.8 g/dL (14.0-18.0); Mean Corpuscular HGB CONC 33.9 g/dL (32.0-36.0); Mean Corpuscular Hemoglobin 38.7 pg (27.0-31.0); Platelet Count 192 thou/uL (130-400); Red Blood Cell (RBC) Count 2.03 mill/uL (4.70-6.10); White Blood Cell (WBC) Count 29.4 thou/uL (4.8-10.8)
[2020-07-21 06:33] LABS: ALT (SGPT) 16 U/L (8-55); AST (SGOT) 43 U/L (5-34); Albumin 3.5 g/dL (3.4-4.8); Alkaline Phosphatase 118 U/L (40-110); Anion Gap 15 mmol/L (10-20); BUN (Urea Nitrogen) 47 mg/dL (8.4-25.7); Band 5 % (5-11); Bilirubin, Total 4.3 mg/dL (0.2-1.2); Calc. Creatinine Clearance 32 mL/min (70-130); Carbon Dioxide 22 mmol/L (23-31); Chloride 97 mmol/L (98-107); Globulin 2.5 g/dL (2.4-3.5); Glucose 122 mg/dL (80-115); Hypochromia SLIGHT = 6-15 cells (100X) (0-5/hpf); Lymphocytes 10 % (21-51); MDiff Complete? YES; Macrocytosis SLIGHT = 6-15 cells (100X) (0-5/hpf); Neutrophil 85 % (42-75); Platelet Morphology Comment Appears Adequate; Potassium 3.7 mmol/L (3.5-5.1); Sodium 130 mmol/L (136-145)
[2020-07-21] MEDS: Cefepime 2 GM in Sodium Chloride 0.9% 100 ML IVPB SCH ×2 (08:50→20:56)
[2020-07-21] MEDS: Gabapentin 100 MG CAP PO SCH ×3 (08:55→19:14)
[2020-07-21] MEDS: Cyanocobalamin (Vitamin B-12) 1,000 MCG TAB PO SCH (09:58)
[2020-07-21] MEDS: Midodrine HCl 5 MG TAB PO SCH ×3 (09:58→19:14)
[2020-07-21] MEDS: Folic Acid 1 MG TAB PO SCH (09:58)
[2020-07-21] MEDS: Megestrol Acetate 40 MG TAB PO SCH ×2 (09:58→19:14)
[2020-07-21] MEDS: Thiamine 100 MG TAB PO SCH (09:59)
[2020-07-21] MEDS: Multivitamin W/ Minerals 1 TAB PO SCH (09:59)
[2020-07-21] MEDS: Octreotide Acetate 1,250 MCG in Sodium Chloride 0.9% 250 ML 250 ML IVPB SCH (22:05)
[2020-07-22 06:10] LABS: Band 6 % (5-11); Eosinophils 3 % (0-10); Hemoglobin 8.4 g/dL (14.0-18.0); Lymphocytes 9 % (21-51); MDiff Complete? YES; Mean Corpuscular HGB CONC 33.5 g/dL (32.0-36.0); Mean Corpuscular Hemoglobin 38.3 pg (27.0-31.0); Monocytes 10 % (0-10); Neutrophil 72 % (42-75); Platelet Count 194 thou/uL (130-400); Platelet Morphology Comment Appears Adequate; RBC Distribution Width 15.1 % (11.5-14.5); White Blood Cell (WBC) Count 21.5 thou/uL (4.8-10.8)
[2020-07-22 06:24] LABS: ALT (SGPT) 16 U/L (8-55); AST (SGOT) 41 U/L (5-34); Albumin 2.9 g/dL (3.4-4.8); Alkaline Phosphatase 120 U/L (40-110); Anion Gap 16 mmol/L (10-20); BUN (Urea Nitrogen) 53 mg/dL (8.4-25.7); Bilirubin, Total 4.7 mg/dL (0.2-1.2); Calc. Creatinine Clearance 32 mL/min (70-130); Calcium 7.8 mg/dL (7.8-10.44); Carbon Dioxide 18 mmol/L (23-31); Chloride 101 mmol/L (98-107); Globulin 2.6 g/dL (2.4-3.5); Glucose 112 mg/dL (80-115); Potassium 3.8 mmol/L (3.5-5.1); Protein, Total 5.5 g/dL (5.8-8.1); Sodium 131 mmol/L (136-145)
[2020-07-22] MEDS: Cefepime 2 GM in Sodium Chloride 0.9% 100 ML IVPB SCH ×2 (08:49→20:19)
[2020-07-22] MEDS: Megestrol Acetate 40 MG TAB PO SCH ×2 (09:40→20:20)
[2020-07-22] MEDS: Gabapentin 100 MG CAP PO SCH ×3 (09:40→20:19)
[2020-07-22] MEDS: Folic Acid 1 MG TAB PO SCH (09:40)
[2020-07-22] MEDS: Midodrine HCl 5 MG TAB PO SCH ×3 (09:40→20:20)
[2020-07-22] MEDS: Cyanocobalamin (Vitamin B-12) 1,000 MCG TAB PO SCH (09:40)
[2020-07-22] MEDS: Multivitamin W/ Minerals 1 TAB PO SCH (09:41)
[2020-07-22] MEDS: Thiamine 100 MG TAB PO SCH (09:41)
[2020-07-22] MEDS ORDERED: Nystatin Powder 15 GM BOT TOP PRN (10:49)
[2020-07-22] MEDS: Octreotide Acetate 1,250 MCG in Sodium Chloride 0.9% 250 ML 250 ML IVPB SCH (21:28)
[2020-07-23 05:49] LABS: #Basophils 0.1 thou/uL (0.0-0.2); #Eosinphils 0.5 thou/uL (0.0-0.7); #Lymphocytes 1.9 thou/uL (1.20-3.40); #Monocytes 1.9 thou/uL (0.11-0.59); #Neutrophils 15.9 thou/uL (1.40-6.50); %Basophils 0.4 % (0.0-1.0); %Eosinophils 2.7 % (0.0-10.0); %Lymphocytes 9.5 % (21.0-51.0); %Monocytes 9.1 % (0.0-10.0); %Neutrophils 78.2 % (42.0-75.0); Hemoglobin 8.8 g/dL (14.0-18.0); Mean Corpuscular HGB CONC 33.2 g/dL (32.0-36.0); Mean Corpuscular Hemoglobin 38.3 pg (27.0-31.0); Mean Platelet Volume 9.3 fL (7.4-10.4); Platelet Count 232 thou/uL (130-400); Red Blood Cell (RBC) Count 2.29 mill/uL (4.70-6.10); White Blood Cell (WBC) Count 20.3 thou/uL (4.8-10.8)
[2020-07-23] MEDS: Midodrine HCl 5 MG TAB PO SCH ×4 (08:17→20:02)
[2020-07-23] MEDS: Folic Acid 1 MG TAB PO SCH ×2 (08:17→09:55)
[2020-07-23] MEDS: Multivitamin W/ Minerals 1 TAB PO SCH ×2 (08:17→10:40)
[2020-07-23] MEDS: Gabapentin 100 MG CAP PO SCH ×4 (08:17→20:02)
[2020-07-23] MEDS: Cyanocobalamin (Vitamin B-12) 1,000 MCG TAB PO SCH ×2 (08:17→09:55)
[2020-07-23] MEDS: Megestrol Acetate 40 MG TAB PO SCH ×3 (08:17→20:01)
[2020-07-23] MEDS: Cefepime 2 GM in Sodium Chloride 0.9% 100 ML IVPB SCH ×2 (08:17→20:01)
[2020-07-23 08:39] LABS: ALT (SGPT) 17 U/L (8-55); AST (SGOT) 40 U/L (5-34); Albumin 2.7 g/dL (3.4-4.8); Alkaline Phosphatase 124 U/L (40-110); Anion Gap 13 mmol/L (10-20); BUN (Urea Nitrogen) 56 mg/dL (8.4-25.7); Bilirubin, Total 3.9 mg/dL (0.2-1.2); Calc. Creatinine Clearance 32 mL/min (70-130); Calcium 7.9 mg/dL (7.8-10.44); Carbon Dioxide 22 mmol/L (23-31); Chloride 101 mmol/L (98-107); Glucose 167 mg/dL (80-115); Potassium 3.6 mmol/L (3.5-5.1); Protein, Total 5.7 g/dL (5.8-8.1); Sodium 132 mmol/L (136-145)
[2020-07-23] MEDS: Thiamine 100 MG TAB PO SCH (09:54)
[2020-07-23] MEDS: Albumin 25% 25 GM/100 ML BOT IVPB SCH (20:00)
[2020-07-24 04:05] LABS: #Basophils 0.1 thou/uL (0.0-0.2); #Eosinphils 0.6 thou/uL (0.0-0.7); #Lymphocytes 2.4 thou/uL (1.20-3.40); #Monocytes 2.2 thou/uL (0.11-0.59); #Neutrophils 17.1 thou/uL (1.40-6.50); %Basophils 0.5 % (0.0-1.0); %Eosinophils 2.6 % (0.0-10.0); %Lymphocytes 10.7 % (21.0-51.0); %Monocytes 9.7 % (0.0-10.0); %Neutrophils 76.5 % (42.0-75.0); Hemoglobin 9.1 g/dL (14.0-18.0); Mean Corpuscular HGB CONC 34.5 g/dL (32.0-36.0); Mean Corpuscular Hemoglobin 39.2 pg (27.0-31.0); Mean Platelet Volume 8.8 fL (7.4-10.4); Platelet Count 220 thou/uL (130-400); RBC Distribution Width 15.2 % (11.5-14.5); Red Blood Cell (RBC) Count 2.32 mill/uL (4.70-6.10); White Blood Cell (WBC) Count 22.3 thou/uL (4.8-10.8)
[2020-07-24 04:23] LABS: Phosphorus 2.6 mg/dL (2.3-4.7)
[2020-07-24 04:28] LABS: ALT (SGPT) 16 U/L (8-55); AST (SGOT) 39 U/L (5-34); Albumin 2.8 g/dL (3.4-4.8); Alkaline Phosphatase 110 U/L (40-110); Anion Gap 13 mmol/L (10-20); BUN (Urea Nitrogen) 57 mg/dL (8.4-25.7); Bilirubin, Total 4.4 mg/dL (0.2-1.2); Calc. Creatinine Clearance 34 mL/min (70-130); Calcium 8.2 mg/dL (7.8-10.44); Carbon Dioxide 21 mmol/L (23-31); Chloride 104 mmol/L (98-107); Glucose 141 mg/dL (80-115); Potassium 3.5 mmol/L (3.5-5.1); Protein, Total 5.8 g/dL (5.8-8.1); Sodium 134 mmol/L (136-145)
[2020-07-24] MEDS: Cefepime 2 GM in Sodium Chloride 0.9% 100 ML IVPB SCH ×2 (09:01→19:41)
[2020-07-24] MEDS: Gabapentin 100 MG CAP PO SCH ×4 (09:03→19:41)
[2020-07-24] MEDS: Multivitamin W/ Minerals 1 TAB PO SCH (09:03)
[2020-07-24] MEDS: Midodrine HCl 5 MG TAB PO SCH ×4 (09:03→19:53)
[2020-07-24] MEDS: Cyanocobalamin (Vitamin B-12) 1,000 MCG TAB PO SCH (09:03)
[2020-07-24] MEDS: Folic Acid 1 MG TAB PO SCH (09:03)
[2020-07-24] MEDS: Megestrol Acetate 40 MG TAB PO SCH ×3 (09:04→19:42)
[2020-07-24] MEDS: Thiamine 100 MG TAB PO SCH (09:54)
[2020-07-24] MEDS: Albumin 25% 25 GM/100 ML BOT IVPB SCH ×3 (10:11→19:40)
[2020-07-24] MEDS: metroNIDAZOLE 500 MG in Premix Bag 1 BAG IVPB SCH ×2 (13:23→22:21)
[2020-07-24] MEDS: Dextrose 5 % And 0.9 % NaCl 1,000 ML IV SCH (18:12)
[2020-07-25] MEDS: Dextrose 5 % And 0.9 % NaCl 1,000 ML IV SCH ×2 (05:04→18:27)
[2020-07-25] MEDS: metroNIDAZOLE 500 MG in Premix Bag 1 BAG IVPB SCH ×3 (05:04→22:04)
[2020-07-25 06:15] LABS: #Basophils 0.1 thou/uL (0.0-0.2); #Eosinphils 0.5 thou/uL (0.0-0.7); #Lymphocytes 1.9 thou/uL (1.20-3.40); #Monocytes 1.7 thou/uL (0.11-0.59); #Neutrophils 14.4 thou/uL (1.40-6.50); %Basophils 0.4 % (0.0-1.0); %Eosinophils 2.9 % (0.0-10.0); %Monocytes 9.1 % (0.0-10.0); %Neutrophils 77.7 % (42.0-75.0); Hemoglobin 8.5 g/dL (14.0-18.0); Mean Corpuscular HGB CONC 33.1 g/dL (32.0-36.0); Mean Corpuscular Hemoglobin 38.3 pg (27.0-31.0); Platelet Count 214 thou/uL (130-400); RBC Distribution Width 15.1 % (11.5-14.5); Red Blood Cell (RBC) Count 2.22 mill/uL (4.70-6.10); White Blood Cell (WBC) Count 18.6 thou/uL (4.8-10.8)
[2020-07-25 06:41] LABS: ALT (SGPT) 14 U/L (8-55); AST (SGOT) 34 U/L (5-34); Albumin 3.4 g/dL (3.4-4.8); Alkaline Phosphatase 94 U/L (40-110); Anion Gap 14 mmol/L (10-20); BUN (Urea Nitrogen) 55 mg/dL (8.4-25.7); Calc. Creatinine Clearance 32 mL/min (70-130); Carbon Dioxide 19 mmol/L (23-31); Chloride 107 mmol/L (98-107); Globulin 2.6 g/dL (2.4-3.5); Glucose 181 mg/dL (80-115); Potassium 3.3 mmol/L (3.5-5.1); Sodium 137 mmol/L (136-145)
[2020-07-25] MEDS: Midodrine HCl 5 MG TAB PO SCH ×3 (08:27→21:27)
[2020-07-25] MEDS: Megestrol Acetate 40 MG TAB PO SCH ×2 (08:27→21:27)
[2020-07-25] MEDS: Folic Acid 1 MG TAB PO SCH (08:27)
[2020-07-25] MEDS: Gabapentin 100 MG CAP PO SCH ×3 (08:27→21:26)
[2020-07-25] MEDS: Cyanocobalamin (Vitamin B-12) 1,000 MCG TAB PO SCH (08:27)
[2020-07-25] MEDS: Thiamine 100 MG TAB PO SCH (08:28)
[2020-07-25] MEDS: Multivitamin W/ Minerals 1 TAB PO SCH (08:28)
[2020-07-25] MEDS: Cefepime 2 GM in Sodium Chloride 0.9% 100 ML IVPB SCH ×2 (08:30→21:26)
[2020-07-25] MEDS ORDERED: Potassium Chloride 20 MEQ TAB PO SCH (09:45)
[2020-07-26] MEDS: metroNIDAZOLE 500 MG in Premix Bag 1 BAG IVPB SCH ×3 (06:08→23:07)
[2020-07-26 06:29] LABS: Anion Gap 16 mmol/L (10-20); BUN (Urea Nitrogen) 59 mg/dL (8.4-25.7); Calc. Creatinine Clearance 29 mL/min (70-130); Carbon Dioxide 16 mmol/L (23-31); Chloride 112 mmol/L (98-107); Glucose 184 mg/dL (80-115); Magnesium 1.9 mg/dL (1.6-2.6); Potassium 3.7 mmol/L (3.5-5.1); Sodium 140 mmol/L (136-145)
[2020-07-26 06:38] LABS: Hemoglobin 8.8 g/dL (14.0-18.0); Mean Corpuscular HGB CONC 33.1 g/dL (32.0-36.0); Mean Corpuscular Hemoglobin 37.8 pg (27.0-31.0); Mean Platelet Volume 9.6 fL (7.4-10.4); Platelet Count 155 thou/uL (130-400); RBC Distribution Width 15.2 % (11.5-14.5); Red Blood Cell (RBC) Count 2.33 mill/uL (4.70-6.10); White Blood Cell (WBC) Count 25.1 thou/uL (4.8-10.8)
[2020-07-26 06:54] LABS: Band 3 % (5-11); Eosinophils 2 % (0-10); Lymphocytes 11 % (21-51); MDiff Complete? YES; Macrocytosis SLIGHT = 6-15 cells (100X) (0-5/hpf); Monocytes 2 % (0-10); Neutrophil 82 % (42-75)
[2020-07-26] MEDS: Cyanocobalamin (Vitamin B-12) 1,000 MCG TAB PO SCH (07:23)
[2020-07-26] MEDS: Gabapentin 100 MG CAP PO SCH ×3 (07:26→22:03)
[2020-07-26] MEDS: Folic Acid 1 MG TAB PO SCH (07:26)
[2020-07-26] MEDS: Midodrine HCl 5 MG TAB PO SCH ×3 (07:27→22:04)
[2020-07-26] MEDS: Multivitamin W/ Minerals 1 TAB PO SCH (07:27)
[2020-07-26] MEDS: Megestrol Acetate 40 MG TAB PO SCH ×2 (07:27→22:04)
[2020-07-26] MEDS: Thiamine 100 MG TAB PO SCH (07:27)
[2020-07-26] MEDS: Cefepime 2 GM in Sodium Chloride 0.9% 100 ML IVPB SCH ×2 (08:41→22:26)
[2020-07-26 11:46] VITALS: BMI 26.2
[2020-07-26] MEDS: Dextrose 5 % And 0.9 % NaCl 1,000 ML IV SCH (14:43)
[2020-07-26] MEDS ORDERED: Scopolamine 1.5 mg/72 hour Patch TD SCH (15:00)
[2020-07-26] MEDS ORDERED: Hyoscyamine Sulfate SL 0.125 mg Tablet PO PRN (22:15)
[2020-07-26] MEDS ORDERED: Morphine 2 MG/ML VIAL SLOW IVP SCH ×2 (22:45→23:15)
[2020-07-27 05:59] LABS: Anion Gap 18 mmol/L (10-20); BUN (Urea Nitrogen) 65 mg/dL (8.4-25.7); Calc. Creatinine Clearance 24 mL/min (70-130); Calcium 8.1 mg/dL (7.8-10.44); Carbon Dioxide 17 mmol/L (23-31); Chloride 113 mmol/L (98-107); Glucose 164 mg/dL (80-115); Potassium 3.7 mmol/L (3.5-5.1); Sodium 144 mmol/L (136-145)
[2020-07-27 06:52] LABS: Hemoglobin 8.3 g/dL (14.0-18.0); Mean Corpuscular HGB CONC 32.8 g/dL (32.0-36.0); Mean Corpuscular Hemoglobin 37.6 pg (27.0-31.0); Mean Platelet Volume 9.3 fL (7.4-10.4); Platelet Count 245 thou/uL (130-400); RBC Distribution Width 15.3 % (11.5-14.5); Red Blood Cell (RBC) Count 2.19 mill/uL (4.70-6.10); White Blood Cell (WBC) Count 27.6 thou/uL (4.8-10.8)
[2020-07-27 07:25] LABS: Band 5 % (5-11); Eosinophils 1 % (0-10); Lymphocytes 1 % (21-51); MDiff Complete? YES; Macrocytosis MODERATE=16-30 cells (100X) (0-5/hpf); Monocytes 6 % (0-10); Myelocyte 1 % (0-0); Neutrophil 86 % (42-75); Platelet Morphology Comment Appears Adequate; Polychromasia SLIGHT = 2-3 cells (100X) (0-2/hpf)
[2020-07-27] MEDS: Megestrol Acetate 40 MG TAB PO SCH (07:35)
[2020-07-27] MEDS: Folic Acid 1 MG TAB PO SCH (07:35)
[2020-07-27] MEDS: Gabapentin 100 MG CAP PO SCH (07:35)
[2020-07-27] MEDS: Cyanocobalamin (Vitamin B-12) 1,000 MCG TAB PO SCH (07:35)
[2020-07-27] MEDS: Ergocalciferol 1.25 MG(50,000 UNITS) CAP PO SCH (07:35)
[2020-07-27] MEDS: Midodrine HCl 5 MG TAB PO SCH (07:36)
[2020-07-27] MEDS: Multivitamin W/ Minerals 1 TAB PO SCH (07:36)
[2020-07-27] MEDS: Thiamine 100 MG TAB PO SCH (07:36)
[2020-07-27 08:12] VITALS: BP 95/88; TEMP 98.5
== END 2020-07-27 12:14 | disposition hospice, inpatient (51) | DRG 441 ==
LOC: ERS 04:19 → T4-B 06:45
PROVIDERS: ADMIT Internal Medicine; ATTEND Internal Medicine
PROC: 0W9G3ZZ Drainage of Peritoneal Cavity, Percutaneous Approach (ICD-10-PCS; principal; 2020-07-10)
PROC: 0W9G3ZZ Drainage of Peritoneal Cavity, Percutaneous Approach (ICD-10-PCS; 2020-07-13)
PROC: 0W9G3ZZ Drainage of Peritoneal Cavity, Percutaneous Approach (ICD-10-PCS; 2020-07-15)
DX: K76.7 Hepatorenal syndrome (principal); G93.41 Metabolic encephalopathy; J69.0 Pneumonitis due to inhalation of food and vomit; E87.1 Hypo-osmolality and hyponatremia; N17.9 Acute kidney failure, unspecified; N39.0 Urinary tract infection, site not specified; E46 Unspecified protein-calorie malnutrition; E87.2 Acidosis; K70.11 Alcoholic hepatitis with ascites; K71.3 Toxic liver disease with chronic persistent hepatitis; K70.31 Alcoholic cirrhosis of liver with ascites; Z20.822 Contact with and (suspected) exposure to COVID-19; Z66 Do not resuscitate; Z51.5 Encounter for palliative care; E86.0 Dehydration; D63.8 Anemia in other chronic diseases classified elsewhere; I95.9 Hypotension, unspecified; F41.9 Anxiety disorder, unspecified; F32.9 Major depressive disorder, single episode, unspecified; F10.20 Alcohol dependence, uncomplicated; F17.210 Nicotine dependence, cigarettes, uncomplicated; I10 Essential (primary) hypertension; K76.0 Fatty (change of) liver, not elsewhere classified; D53.9 Nutritional anemia, unspecified; G62.9 Polyneuropathy, unspecified; N18.30 Chronic kidney disease, stage 3 unspecified; D63.1 Anemia in chronic kidney disease; E55.9 Vitamin D deficiency, unspecified; K72.90 Hepatic failure, unspecified without coma; E83.51 Hypocalcemia; R09.02 Hypoxemia; E87.6 Hypokalemia; Z79.899 Other long term (current) drug therapy; Z98.49 Cataract extraction status, unspecified eye; Z98.890 Other specified postprocedural states; Z86.79 Personal history of other diseases of the circulatory system; Z68.26 Body mass index [BMI] 26.0-26.9, adult
CPT/HCPCS: 36415; 49083; 71045; 76705; 76770; 80048; 80053; 80074; 81001; 82105; 82140; 82306; 82607; 82746; 83735; 83880; 83930; 83935; 83970; 84100; 84300; 84484; 85025; 85060; 85610; 85730; 86140; 87040; 87070; 87076; 87086; 87205; 89051; J0692; J0696; J2001; J2270; J2354; J2405; J2550; J3490; J7050; P9047; Q0162; S0179; U0003; U0005